=== PATIENT | female | born 1995 | race African-American/Black ===

== ENCOUNTER 2017-06-23 08:18 | Emergency (ER) | payer OTHER, SELFPAY ==
[2017-06-23 09:04] LABS: Absolute Lymphocytes (CBC) 1.7 K/uL (0.7-4.9); Absolute Monocytes 0.5 K/uL (0.1-1.3); Absolute Neutrophil 5.8 K/uL (1.8-8.0); Basophils % 0.4 % (0-1.3); Eosinophils % 1.4 % (0-4.4); Hematocrit 40.2 % (36.0-45.0); Lymphocytes % 20.4 % (15.3-44.8); MCH 24.5 pg (27.0-35.0); MCV 78.5 fL (80-100); MPV 11.3 fL (7.6-11.3); Monocytes % 6.7 % (3.3-12.3); RBC Red Blood Cell Count 5.12 M/uL (3.86-4.86)
[2017-06-23] MEDS ORDERED: NA CHLORIDE 0.9% 1,000 ML ONE (09:05)
[2017-06-23 09:21] LABS: Bicarbonate 28 mEq/L (21-31); Glucose Level 98 mg/dL (65-120); Lipase 15 U/L (22-51); Potassium 4.1 mEq/L (3.6-5.0); Sodium Level 138 mEq/L (135-145)
[2017-06-23 09:27] LABS: ALT/SGPT 15 IU/L (10-60); AST/SGOT 22 IU/L (10-42); Albumin 4.5 g/dL (3.2-5.5); Alkaline Phosphatase 80 IU/L (42-121); BUN Blood Urea Nitrogen 7 mg/dL (6-20); Bilirubin Direct < 0.1 mg/dL (0-0.2); Bilirubin Total 0.3 mg/dL (0.3-1.2); Glomerular Filtration Rate > 90 mL/min (=/>90); Protein, Total 8.4 g/dL (6.0-8.3)
[2017-06-23] MEDS ORDERED: KETOROLAC 30 MG/ML INJ ONE (10:16)
[2017-06-23 10:20] LABS: Urine Blood TRACE (NEG); Urine Glucose NEGATIVE (NEG); Urine Protein NEGATIVE (NEG); Urine Specific Gravity 1.015 (1.005-1.030)
--- NOTE | 2017-06-23 11:19 | RAD REPORT ---
EXAM DESCRIPTION: CT - Stone Protocol - 06/23/2017 10:44 am CLINICAL HISTORY: Abdominal pain, back pain, flank pain COMPARISON: None. TECHNIQUE: Axial 5 mm thick images were obtained without oral or IV contrast. The [id number] span s the entirety of the system including uppermost abdomen and lung bases. All CT scans are performed using dose optimization technique as appropriate and may include automated exposure control or mA/KV adjustment according to patient size. FINDINGS: No hydronephrosis is present and no obstructing ureteral calculi. No suspicious renal mass es. Isodense masses and pyelonephritis are not excluded on a stone protocol CT scan. No urinary bladd er suspicious finding. Uterus and ovaries within normal limits for age. Adnexal detail is limited gonzalo ewhat by the absence of IV and oral contrast. Imaged portions of the liver, spleen and pancreas show no suspicious findings on non-contrast imaging . No gallbladder or biliary tree abnormality identified. Gallstones can be occult. No adrenal abnorma lity. No suspicious bowel findings. No direct or indirect evidence for appendicitis. No mass or bulky lymphadenopathy. Patient has a 3 centimeter umbilical hernia. Small bowel extends in to the hernia which has a 3 centimeter neck. No active process at this site. No free air, free fluid or inflammatory stranding. No significant bony abnormality. IMPRESSION: No hydronephrosis, obstructing calculus or other acute finding. Isodense masses and pyelonephritis are not excluded on stone protocol technique. 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 3 centimeter umbilical hernia with a 3 centimeter neck. No active process at this site.
--- NOTE | 2017-06-23 11:33 | ER ---
Nurse's Notes [facility] Name: Sanjuana Zapata Age: 21 yrs Sex: Female : 1995 Arrival Date: 06/23/2017 Time: 08:21 Bed 7 Private MD: Diagnosis: Lower abdominal pain, unspecified Presentation: 06/23 08:32 Presenting complaint: Patient states: has had generalized abd pain, and mid back pain X iw 5 days, denies n/v/d, denies pain or burning with urination, also has felt light headed. Transition of care: patient was not received from another setting of care. Onset of symptoms was June 18, 2017. Care prior to arrival: None. 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 - Social history:: Smoking status: Patient/guardian denies using tobacco. Screenin:37 Abuse screen: Denies threats or abuse. Denies injuries from another. Nutritional jl7 screening: No deficits noted. Tuberculosis screening: No symptoms or risk factors identified. Fall Risk IV access (20 points). Total Stock Fall Scale indicates No Risk (0-24 pts). Assessment: 08:37 General: Appears in no apparent distress. uncomfortable, Behavior is calm, cooperative, jl7 appropriate for age. Pain: Complains of pain in lower abdomen and sides Pain radiates to bilateral flank pain Pain currently is 7 out of 10 on a pain scale. Quality of pain is described as throbbing, Pain began 5 days ago Is continuous, Aggravated by coughing and taking a deep breath. Neuro: Level of Consciousness is awake, alert, obeys commands, Oriented to person, place, time, situation, Moves all extremities. Gait is steady. Cardiovascular: Heart tones S1 S2 present Patient's skin is warm and dry. Respiratory: Airway is patent Respiratory effort is even, unlabored, Respiratory pattern is regular, symmetrical, Breath sounds are clear bilaterally. GI: Abdomen is flat, non-distended, Last BM was June 23, 2017. Bowel sounds present X 4 quads. Abd is soft and non tender X 4 quads. Reports lower abdominal pain, Patient currently denies diarrhea, nausea, vomiting. : No signs and/or symptoms were reported regarding the genitourinary system. Denies burning with urination, pain. EENT: No signs and/or symptoms were reported regarding the EENT system. Derm: Skin is dry, Skin is normal, Skin temperature is warm. Musculoskeletal: No signs and/or symptoms reported regarding the musculoskeletal system. 09:30 Reassessment: No changes from previously documented assessment. Patient and/or family jl7 updated on plan of care and expected duration. Pain level reassessed. Patient is alert, oriented x 3, equal unlabored respirations, skin warm/dry/pink. 10:20 Reassessment: Patient and/or family updated on plan of care and expected duration. Pain jl7 level reassessed. Pt reports increased pain, rated 10/10. Provider notified, see MAR for orders. 11:07 Reassessment: Pt reports decreased pain, pain rated 1/10. jl7 Vital Signs: 08:37 BP 135 / 89; Pulse 74; Resp 16 S; Pulse Ox 100% on R/A; Weight 71.21 kg; Height 5 ft. 3 jl7 in. (160.02 cm); Pain 7/10; 08:40 Temp 98.5; jl7 09:29 BP 138 / 101; Pulse 74; Resp 18 S; Pulse Ox 100% on R/A; Pain 7/10; jl7 10:30 BP 120 / 75; Pulse 62; Resp 16 S; Pulse Ox 100% on R/A; jl7 11:24 BP 132 / 82; Pulse 78; Resp 16; Pulse Ox 98% ; jl7 08:37 Body Mass Index 27.81 (71.21 kg, 160.02 cm) jl7 ED Course: 08:21 Patient arrived in ED. tw3 08:25 Jessica Osman FNP-C is PHCP. kb 08:25 Domingo Cash MD is Attending Physician. kb 08:33 Triage completed. iw 08:36 Yelena Aguilar, RUDY is Primary Nurse. jl7 08:37 Patient has correct armband on for positive identification. Bed in low position. Call jl7 light in reach. Side rails up X 1. Pulse ox on. NIBP on. 08:42 Arm band placed on right wrist. jl7 09:08 Initial lab(s) drawn, by ED staff, sent to lab. Inserted saline lock: 22 gauge in right jl7 antecubital area, using aseptic technique. Blood collected. inserted by Talat Calloway ED Tech. 10:44 CT Stone Protocol In Process Unspecified. EDMS 11:40 No provider procedures requiring assistance completed. IV discontinued, intact, jl7 bleeding controlled, No redness/swelling at site. Pressure dressing applied. Administered Medications: 09:08 Drug: NS 0.9% 1000 ml Route: IV; Rate: 1 bolus; Site: right antecubital; jl7 10:00 Follow up: Response: No adverse reaction; IV Status: Completed infusion jl7 10:24 Drug: TORadol 30 mg Route: IVP; Site: right antecubital; jl7 11:07 Follow up: Response: No adverse reaction; Pain is decreased jl7 Outcome: 11:32 Discharge ordered by . kb 11:40 Discharged to home ambulatory. jl7 11:40 Condition: stable 11:40 Discharge instructions given to patient, Instructed on discharge instructions, follow up and referral plans. Demonstrated understanding of instructions, follow-up care. 11:41 Patient left the ED. jl7 Signatures: Dispatcher [employer] Jessica Morgan, LIZETTE-Kaylen HINKLEP-Ana Flor, RN Yelena Gregorio RN RN jl7 Ej, Regina tw3
--- NOTE | 2017-06-23 11:33 | EDPHYS ---
Physician Documentation [facility] Name: Sanjuana Zapata Age: 21 yrs Sex: Female : 1995 Arrival Date: 06/23/2017 Time: 08:21 Bed 7 Private MD: ED Physician Domingo Cash HPI: 06/23 10:37 This 21 yrs old Black Female presents to ER via Ambulatory with complaints of Back kb Pain, Abdominal Pain. 10:37 The patient presents with abdominal pain in the lower abdomen. Onset: The kb symptoms/episode began/occurred 2 day(s) ago. The symptoms radiate to both flanks. Associated signs and symptoms: Pertinent positives: nausea, Pertinent negatives: diarrhea, fever, vomiting. The symptoms are described as constant. Modifying factors: The symptoms are alleviated by nothing, the symptoms are aggravated by nothing. Severity of pain: At its worst the pain was mild moderate in the emergency department the pain is unchanged. The patient has not experienced similar symptoms in the past. The patient has not recently seen a physician. 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 - Social history:: Smoking status: Patient/guardian denies using tobacco. ROS: 10:36 Constitutional: Negative for fever, chills, and weight loss, Cardiovascular: Negative kb for chest pain, palpitations, and edema, Respiratory: Negative for shortness of breath, cough, wheezing, and pleuritic chest pain, : Negative for injury, bleeding, discharge, and swelling, MS/Extremity: Negative for injury and deformity, Skin: Negative for injury, rash, and discoloration, Neuro: Negative for headache, weakness, numbness, tingling, and seizure. 10:36 Abdomen/GI: Positive for abdominal pain, nausea, Negative for vomiting, diarrhea, constipation, abdominal cramps, abdominal distension, anorexia. 10:36 Back: Positive for flank pain, bilaterally. Exam: 10:36 Constitutional: This is a well developed, well nourished patient who is awake, alert, kb and in no acute distress. Head/Face: Normocephalic, atraumatic. Chest/axilla: Normal chest wall appearance and motion. Nontender with no deformity. No lesions are appreciated. Cardiovascular: Regular rate and rhythm with a normal S1 and S2. No gallops, murmurs, or rubs. Normal PMI, no JVD. No pulse deficits. Respiratory: Lungs have equal breath sounds bilaterally, clear to auscultation and percussion. No rales, rhonchi or wheezes noted. No increased work of breathing, no retractions or nasal flaring. Abdomen/GI: Soft, non-tender, with normal bowel sounds. No distension or tympany. No guarding or rebound. No evidence of tenderness throughout. Skin: Warm, dry with normal turgor. Normal color with no rashes, no lesions, and no evidence of cellulitis. MS/ Extremity: Pulses equal, no cyanosis. Neurovascular intact. Full, normal range of motion. Neuro: Awake and alert, GCS 15, oriented to person, place, time, and situation. Cranial nerves II-XII grossly intact. Motor strength 5/5 in all extremities. Sensory grossly intact. Cerebellar exam normal. Normal gait. 10:36 Back: CVA tenderness, that is mild, is noted bilaterally. Vital Signs: 08:37 BP 135 / 89; Pulse 74; Resp 16 S; Pulse Ox 100% on R/A; Weight 71.21 kg; Height 5 ft. 3 jl7 in. (160.02 cm); Pain 7/10; 08:40 Temp 98.5; jl7 09:29 BP 138 / 101; Pulse 74; Resp 18 S; Pulse Ox 100% on R/A; Pain 7/10; jl7 10:30 BP 120 / 75; Pulse 62; Resp 16 S; Pulse Ox 100% on R/A; jl7 11:24 BP 132 / 82; Pulse 78; Resp 16; Pulse Ox 98% ; jl7 08:37 Body Mass Index 27.81 (71.21 kg, 160.02 cm) jl7 MDM: 08:27 Patient medically screened. 10:36 Data reviewed: vital signs, nurses notes. Data interpreted: Pulse oximetry: on room air kb is 100 %. Interpretation: normal. 11:32 Counseling: I had a detailed discussion with the patient and/or guardian regarding: the kb historical points, exam findings, and any diagnostic results supporting the discharge/admit diagnosis, lab results, radiology results, the need for outpatient follow up, a family practitioner, to return to the emergency department if symptoms worsen or persist or if there are any questions or concerns that arise at home. 06/23 08:47 Order name: Basic Metabolic Panel; Complete Time: 09:29 kb 06/23 08:47 Order name: CBC with Diff; Complete Time: 09:07 kb 06/23 08:47 Order name: Hepatic Function; Complete Time: 09:29 kb 06/23 08:47 Order name: Lipase; Complete Time: 09:29 kb 06/23 09:59 Order name: Urine Dipstick--Ancillary (enter results); Complete Time: 10:23 ag 06/23 09:59 Order name: Urine --Ancillary (enter results); Complete Time: 10:23 ag 06/23 08:47 Order name: Urine Test (obtain specimen); Complete Time: 10:03 kb 06/23 08:47 Order name: IV Saline Lock; Complete Time: 09:02 kb 06/23 08:47 Order name: Labs collected and sent; Complete Time: 09:02 kb 06/23 08:47 Order name: Urine Dipstick-Ancillary (obtain specimen); Complete Time: 10:03 kb 06/23 10:23 Order name: CT Stone Protocol; Complete Time: 11:23 kb Administered Medications: 09:08 Drug: NS 0.9% 1000 ml Route: IV; Rate: 1 bolus; Site: right antecubital; jl7 10:00 Follow up: Response: No adverse reaction; IV Status: Completed infusion jl7 10:24 Drug: TORadol 30 mg Route: IVP; Site: right antecubital; jl7 11:07 Follow up: Response: No adverse reaction; Pain is decreased jl7 Disposition: 14:04 Co-signature as Attending Physician, Domingo Cash MD I agree with the assessment and kdr plan of care. Disposition: 06/23/17 11:32 Discharged to Home. Impression: Lower abdominal pain, unspecified. - Condition is Stable. - Discharge Instructions: Abdominal Pain, Women. - Medication Reconciliation Form, Thank You Letter, Antibiotic Education, Prescription Opioid Use form. - Follow up: Emergency Department; When: As needed; Reason: Worsening of condition. Follow up: Private Physician; When: 2 - 3 days; Reason: Recheck today's complaints, Continuance of care, Re-evaluation by your physician. Signatures: Dispatcher [employer] Jessica Morgan, INO BAUER-Domingo Buck MD MD kdr Williams, Irene, RN RN iw Leal, Jahala, RN RN jl7
[2017-06-23 12:17] LABS: Urine Bacteria 20-50 /HPF (<20)
[2017-06-23 12:18] LABS: Urine Culture Reflex Order NOT NEEDED; Urine Mucus NS /HPF (NONE SEEN)
== END 2017-06-23 11:41 | disposition home or self-care (01) ==
LOC: ER 08:18
DX: R10.9 Unspecified abdominal pain (principal); F32.9 Major depressive disorder, single episode, unspecified
CPT/HCPCS: 36415; 74176; 76377; 80048; 80076; 81003; 81015; 81025; 83690; 85025; 96361; 96374; 99284; J7030

== ENCOUNTER 2017-12-22 08:24 | Emergency (ER) | payer SELFPAY ==
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
[2017-12-22 09:12] LABS: Absolute Lymphocytes (CBC) 1.5 K/uL (0.7-4.9); Absolute Monocytes 0.5 K/uL (0.1-1.3); Absolute Neutrophil 3.1 K/uL (1.8-8.0); Basophils % 0.6 % (0-1.3); Eosinophils % 2.1 % (0-4.4); Hematocrit 38.7 % (36.0-45.0); Lymphocytes % 28.5 % (15.3-44.8); MCH 26.8 pg (27.0-35.0); MCV 79.8 fL (80-100); MPV 11.7 fL (7.6-11.3); RBC Red Blood Cell Count 4.85 M/uL (3.86-4.86)
[2017-12-22] MEDS ORDERED: THIAMINE 200 MG/2 ML INJ ONE (09:15)
[2017-12-22] MEDS ORDERED: FAMOTIDINE 20 MG/2 ML VIAL IV ONE (09:15)
[2017-12-22] MEDS ORDERED: CEFTRIAXONE/SWI 1gm 1 GM/10 ML SYR ONE (09:15)
[2017-12-22] MEDS ORDERED: NA CHLORIDE 0.9% 1,000 ML ONE (09:15)
[2017-12-22 09:16] LABS: Protime INR 1.2
[2017-12-22 09:35] LABS: ALT/SGPT 21 U/L (12-78); AST/SGOT 18 U/L (15-37); Albumin 4.3 g/dL (3.4-5.0); Alkaline Phosphatase 70 U/L (45-117); BUN Blood Urea Nitrogen 7 mg/dL (7-18); Bicarbonate 22 mmol/L (21-32); Bilirubin Direct 0.1 mg/dL (0-0.2); Bilirubin Total 0.3 mg/dL (0.2-1.0); Glucose Level 92 mg/dL (74-106); Lipase 101 U/L (73-393); Potassium 3.8 mmol/L (3.5-5.1); Sodium Level 144 mmol/L (136-145)
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
[2017-12-22 11:54] LABS: Barbiturates NEGATIVE (NEGATIVE); Benzodiazepines NEGATIVE (NEGATIVE); Cocaine NEGATIVE (NEGATIVE); METHAMPHETAM NEGATIVE (NEGATIVE); Methadone NEGATIVE (NEGATIVE); Opiates NEGATIVE (NEGATIVE); Phencyclidine NEGATIVE (NEGATIVE); THC Cannibis POSITIVE (NEGATIVE)
[2017-12-22 19:21] LABS: Urine Blood 3+ (NEG); Urine Glucose NEGATIVE (NEG); Urine Protein NEGATIVE (NEG); Urine Specific Gravity 1.015 (1.005-1.030)
--- NOTE | 2017-12-24 10:14 | EKG ---
Test Date: 2017-12-22 Test Time: 09:31:24 Repack Room Worker: TOAN MEASUREMENT RESULTS: Intervals: Rate: 85 PA: 142 QRSD: 72 QT: 368 QTc: 437 Berkley: P: 72 PA: 142 QRS: 69 T: 50 INTERPRETIVE STATEMENTS: Normal sinus rhythm Normal ECG Compared to ECG 02/20/2017 10:26:14 Sinus arrhythmia no longer present Electronically Signed On 12-24-17 10:13:46 CDT by Pedro Dupree
== END 2017-12-22 11:30 | disposition short-term general hospital (02) ==
LOC: ER 08:24
DX: S09.93XA Unspecified injury of face, initial encounter (principal); R04.0 Epistaxis; Y04.8XXA Assault by other bodily force, initial encounter; Y93.9 Activity, unspecified; Y92.9 Unspecified place or not applicable; F32.9 Major depressive disorder, single episode, unspecified
CPT/HCPCS: 36415; 70450; 70486; 71260; 72125; 74177; 76377; 80048; 80076; 80307; 80320; 80329; 81003; 83690; 84703; 85025; 85610; 85730; 93005; 96361; 96374; 96375; 99285; J0696; J3411; J7030; Q9967

== ENCOUNTER 2022-07-12 16:21 | Emergency (ER) | payer OTHER ==
--- OUTSIDE RECORDS SUMMARY | 2022-07-12 16:30 | XMS REPORT | Continuity of Care Document ---
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 Starting Branch on Sun02/06/22 at 2352, Until Sun02/07/22 at 1032, Routine famotidine 2021-03 Yes [id number] 20mg Take 1 [facility] 20 mg 0-27 tablet by ity of tablet 00:00: mouth in [address] and 1 tablet in the evening. famotidine 2021-03 Yes [id number] 20mg Take 1 [facility] 20 mg 0-27 tablet by ity of tablet 00:00: mouth in [address] and 1 tablet in the evening. famotidine 2021-03 Yes [id number] 20mg Take 1 [facility] 20 mg 0-27 tablet by ity of tablet 00:00: mouth in [address] and 1 tablet in the evening. famotidine 2021-03 Yes [id number] 20mg Take 1 [facility] 20 mg 0-27 tablet by ity of tablet 00:00: mouth in [address] and 1 tablet in the evening. famotidine 2021-03 Yes [id number] 20mg Take 1 [facility] 20 mg 0-27 tablet by ity of tablet 00:00: mouth in [address] and 1 tablet in the evening. famotidine 2021-03 Yes [id number] 20mg Take 1 [facility] 20 mg 0-27 tablet by ity of tablet 00:00: mouth in [address] and 1 tablet in the evening. famotidine 2021-03 Yes [id number] 20mg Take 1 [facility] 20 mg 0-27 tablet by ity of tablet 00:00: mouth in [address] and 1 tablet in the evening. famotidine 2021-03 Yes [id number] 20mg Take 1 [facility] 20 mg 0-27 tablet by ity of tablet 00:00: mouth in [place] 00 the Medical morning Branch and 1 tablet in the evening. famotidine 2021-03 Yes [id number] 20mg Take 1 [facility] 20 mg 0-27 tablet by ity of tablet 00:00: mouth in [place] 00 the Medical morning Branch and 1 tablet in the evening. famotidine 2021-03 Yes [id number] 20mg Take 1 [facility] 20 mg 0-27 tablet by ity of tablet 00:00: mouth in [place] 00 the Medical morning Branch and 1 tablet in the evening. famotidine 2021-03 Yes [id number] 20mg Take 1 [facility] 20 mg 0-27 tablet by ity of tablet 00:00: mouth in [place] 00 the Medical morning Branch and 1 tablet in the evening. famotidine 2021-03- No [id number] 20mg Take 1 [facility] 20 mg 0-27 11-30 tablet by ity of tablet 00:00: 00:00 mouth in [place] 00 :00 the Medical morning Branch and 1 tablet in the evening. famotidine 2021-03- No [id number] 20mg Take 1 [facility] 20 mg 0-27 11-30 tablet by ity of tablet 00:00: 00:00 mouth in [place] 00 :00 the Medical morning Branch and 1 tablet in the evening. NaCl 0.9% 2021-03- No 1000mL at 999 Uni vers (NS) bolus 0-12 10-12 mL/hr, ity of infusion 23:00: 23:33 1,000 mL, [place] 1,000 mL 00 :00 IV Medical Infusion, Branch ONCE, 1 dose, On Sun12/21/21 at 1800, STAT NaCl 0.9% 2021-03- No 1000mL at 999 Uni vers (NS) bolus 0-12 10-12 mL/hr, ity of infusion 23:00: 22:34 1,000 mL, [place] 1,000 mL 00 :21 IV Medical Infusion, Branch ONCE, 1 dose, On Sun12/21/21 at 1800, STAT metroNIDAZO 2021-0 Yes [id number] 500mg Take 1 [facility] LE 500 mg 9-06 tablet by ity o f tablet 00:00: mouth [place] 00 every 12 Medical (twelve) Branch hours. metroNIDAZO 2021-0 Yes [id number] 500mg Take 1 [facility] LE 500 mg 9-06 tablet by ity o f tablet 00:00: mouth [place] 00 every 12 Medical (twelve) Branch hours. metroNIDAZO 2021-0 Yes [id number] 500mg Take 1 [facility] LE 500 mg 9-06 tablet by ity o f tablet 00:00: mouth [place] 00 every 12 Medical (twelve) Branch hours. metroNIDAZO 2021-0 Yes [id number] 500mg Take 1 [facility] LE 500 mg 9-06 tablet by ity o f tablet 00:00: mouth [place] 00 every 12 Medical (twelve) Branch hours. metroNIDAZO 2021-0 Yes [id number] 500mg Take 1 [facility] LE 500 mg 9-06 tablet by ity o f tablet 00:00: mouth [place] 00 every 12 Medical (twelve) Branch hours. metroNIDAZO 2021-0 Yes [id number] 500mg Take 1 [facility] LE 500 mg 9-06 tablet by ity o f tablet 00:00: mouth [place] 00 every 12 Medical (twelve) Branch hours. metroNIDAZO 2021-0 Yes [id number] 500mg Take 1 [facility] LE 500 mg 9-06 tablet by ity o f tablet 00:00: mouth [place] 00 every 12 Medical (twelve) Branch hours. metroNIDAZO 2021-0 Yes [id number] 500mg Take 1 [facility] LE 500 mg 9-06 tablet by ity o f tablet 00:00: mouth [place] 00 every 12 Medical (twelve) Branch hours. metroNIDAZO 2021-0 Yes [id number] 500mg Take 1 [facility] LE 500 mg 9-06 tablet by ity o f tablet 00:00: mouth [place] 00 every 12 Medical (twelve) Branch hours. metroNIDAZO 2021-0 2021- No [id number] 500mg Take 1 [facility] LE 500 mg 9-06 10-12 tablet by ity of tablet 00:00: 00:00 mouth [place] 00 :00 every 12 Medical (twelve) Branch hours. fluconazole 2021-0 2021- No [id number] 150mg Take 1 [facility] 150 mg 9-06 09-07 tablet by ity of tablet 00:00: 04:59 [place] 00 :[place] now for 1 Medical dose. Branch busPIRone 5 2021-0 Yes [id number] 5mg Take 1 [facility] mg tablet 8-31 tablet by ity o f 00:00: mouth in [place] 00 the Medical morning Branch and 1 tablet in the evening. SERTraline 2021-0 Yes [id number] 50mg Take 1 U nivers (ZOLOFT) 50 8-31 tablet by ity of mg tablet 00:00: mouth in [place] 00 the Medical morning. Branch busPIRone 5 2021-0 Yes [id number] 5mg Take 1 [facility] mg tablet 8-31 tablet by ity o f 00:00: mouth in [place] 00 the Medical morning Branch and 1 tablet in the evening. SERTraline 2021-0 Yes [id number] 50mg Take 1 U nivers (ZOLOFT) 50 8-31 tablet by [facility] mg tablet 00:00[facility] Branch busPIRone 5 2021-0 Yes [id number] 5mg Take 1 [facility] mg tablet 8-31 tablet by ity o f 00:00: mouth in [place] 00 the Medical morning Branch and 1 tablet in the evening. SERTraline 2021-0 Yes [id number] 50mg Take 1 U nivers (ZOLOFT) 50 8-31 tablet by ity [facility] mg tablet 00:00[facility] the [facility] morning. Branch busPIRone 5 2021-0 Yes [id number] 5mg Take 1 [facility] mg tablet 8-31 tablet by ity o f 00:00: mouth in [place] the Medical morning Branch and 1 tablet in the evening. SERTraline 2021-0 Yes [id number] 50mg Take 1 U nivers (ZOLOFT) 50 8-31 tablet by [facility]y [facility] mg tablet 00:00[facility] the [facility] morning. Branch busPIRone 5 2021-0 Yes [id number] 5mg Take 1 [facility] mg tablet 8-31 tablet by ity o f 00:00: mouth in [place] 00 the Medical morning Branch and 1 tablet in the evening. SERTraline 2021-0 Yes [id number] 50mg Take 1 U nivers (ZOLOFT) 50 8-31 tablet by [facility] mg tablet 00:00[facility]. Branch busPIRone 5 2021-0 Yes [id number] 5mg Take 1 [facility] mg tablet 8-31 tablet by ity o f 00:00: mouth in [place] 00 the Medical morning Branch and 1 tablet in the evening. SERTraline 2021-0 Yes [id number] 50mg Take 1 U nivers (ZOLOFT) 50 8-31 tablet by ity of mg tablet 00:00: [place] the Medical morning. Branch busPIRone 5 2021-0 Yes [id number] 5mg Take 1 [facility] mg tablet 8-31 tablet by ity o f 00:00: mouth in [place] 00 the Medical morning Branch and 1 tablet in the evening. SERTraline 2021-0 Yes [id number] 50mg Take 1 U nivers (ZOLOFT) 50 8-31 tablet by ity of mg tablet 00:00: mouth [place] 00 the Medical morning. Branch busPIRone 5 2021-0 Yes [id number] 5mg Take 1 [facility] mg tablet 8-31 tablet by ity o f 00:00: mouth in [place] the Medical morning Branch and 1 tablet in the evening. SERTraline 2021-0 Yes [id number] 50mg Take 1 U nivers (ZOLOFT) 50 8-31 tablet by ity of mg tablet 00:00: mouth [place] the Medical morning. Branch busPIRone 5 2021-0 Yes [id number] 5mg Take 1 [facility] mg tablet 8-31 tablet by ity o f 00:00: mouth in [place] the Medical morning Branch and 1 tablet in the evening. SERTraline 2021-0 Yes [id number] 50mg Take 1 U nivers (ZOLOFT) 50 8-31 tablet by ity of mg tablet 00:00: mouth [place] 00 the Medical morning. Branch busPIRone 5 2021-0 Yes [id number] 5mg Take 1 [facility] mg tablet 8-31 tablet by ity o f 00:00: mouth in [place] 00 the Medical morning Branch and 1 tablet in the evening. SERTraline 2021-0 Yes [id number] 50mg Take 1 U nivers (ZOLOFT) 50 8-31 tablet by ity of mg tablet 00:00: mouth [place] 00 the Medical morning. Branch busPIRone 5 2021-0 Yes [id number] 5mg Take 1 [facility] mg tablet 8-31 tablet by ity o f 00:00: mouth in [place] 00 the Medical morning Branch and 1 tablet in the evening. SERTraline 2021-0 Yes [id number] 50mg Take 1 U nivers (ZOLOFT) 50 8-31 tablet by ity of mg tablet 00:00: mouth [place] 00 the Medical morning. Branch busPIRone 5 2021-0 Yes [id number] 5mg Take 1 [facility] mg tablet 8-31 tablet by ity o f 00:00: mouth in [place] the morning Branch and 1 tablet in the evening. SERTraline 2021-0 Yes [id number] 50mg Take 1 U nivers (ZOLOFT) 50 8-31 tablet by ity of mg tablet 00:00: mouth [place] 00 the Medical morning. Branch busPIRone 5 2021-0 Yes [id number] 5mg Take 1 [facility] mg tablet 8-31 tablet by ity o f 00:00: mouth in [place] the morning Branch and 1 tablet in the evening. SERTraline 2021-0 Yes [id number] 50mg Take 1 U nivers (ZOLOFT) 50 8-31 tablet by ity of mg tablet 00:00: mouth [place] the morning. Branch busPIRone 5 2021-0 Yes [id number] 5mg Take 1 [facility] mg tablet 8-31 tablet by ity o f 00:00: mouth in [place] the morning Branch and 1 tablet in the evening. SERTraline 2021-0 Yes [id number] 50mg Take 1 U nivers (ZOLOFT) 50 8-31 tablet by ity of mg tablet 00:00: mouth [place] the morning. Branch busPIRone 5 2021-0 Yes [id number] 5mg Take 1 [facility] mg tablet 8-31 tablet by ity o f 00:00: mouth in [place] the morning Branch and 1 tablet in the evening. SERTraline 2021-0 Yes [id number] 50mg Take 1 U nivers (ZOLOFT) 50 8-31 tablet by ity of mg tablet 00:00: mouth [place] 00 the Medical morning. Branch busPIRone 5 2021-0 Yes [id number] 5mg Take 1 [facility] mg tablet 8-31 tablet by ity o f 00:00: mouth in [place] the Medical morning Branch and 1 tablet in the evening. SERTraline 2021-0 Yes [id number] 50mg Take 1 U nivers (ZOLOFT) 50 8-31 tablet by ity of mg tablet 00:00: mouth [place] 00 the Medical morning. Branch busPIRone 5 2021-0 Yes [id number] 5mg Take 1 [facility] mg tablet 8-31 tablet by ity o f 00:00: mouth in [place] 00 the Medical morning Branch and 1 tablet in the evening. SERTraline 2021-0 Yes [id number] 50mg Take 1 U nivers (ZOLOFT) 50 8-31 tablet by ity of mg tablet 00:00: mouth [place] 00 the Medical morning. Branch busPIRone 5 2021-0 Yes [id number] 5mg Take 1 [facility] mg tablet 8-31 tablet by ity o f 00:00: mouth in [place] 00 the Medical morning Branch and 1 tablet in the evening. SERTraline 2021-0 Yes [id number] 50mg Take 1 U nivers (ZOLOFT) 50 8-31 tablet by ity of mg tablet 00:00: mouth [place] 00 the Medical morning. Branch busPIRone 5 2021-0 Yes [id number] 5mg Take 1 [facility] mg tablet 8-31 tablet by ity o f 00:00: mouth in [place] 00 the Medical morning Branch and 1 tablet in the evening. SERTraline 2021-0 Yes [id number] 50mg Take 1 U nivers (ZOLOFT) 50 8-31 tablet by ity of mg tablet 00:00: mouth [place] 00 the Medical morning. Branch busPIRone 5 2021-0 Yes [id number] 5mg Take 1 [facility] mg tablet 8-31 tablet by ity o f 00:00: mouth in [place] 00 the Medical morning Branch and 1 tablet in the evening. SERTraline 2021-0 Yes [id number] 50mg Take 1 U nivers (ZOLOFT) 50 8-31 tablet by ity of mg tablet 00:00: mouth [place] 00 the Medical morning. Branch busPIRone 5 2021-0 Yes [id number] 5mg Take 1 [facility] mg tablet 8-31 tablet by ity o f 00:00: mouth in [place] 00 the Medical morning Branch and 1 tablet in the evening. SERTraline 2021-0 Yes [id number] 50mg Take 1 U nivers (ZOLOFT) 50 8-31 tablet by ity of mg tablet 00:00: mouth [place] 00 the Medical morning. Branch busPIRone 5 2021-0 Yes [id number] 5mg Take 1 [facility] mg tablet 8-31 tablet by ity o f 00:00: mouth in [place] 00 the Medical morning Branch and 1 tablet in the evening. SERTraline 2021-0 Yes [id number] 50mg Take 1 U nivers (ZOLOFT) 50 8-31 tablet by ity of mg tablet 00:00: mouth [place] 00 the Medical morning. Branch busPIRone 5 2021-0 Yes [id number] 5mg Take 1 [facility] mg tablet 8-31 tablet by ity o f 00:00: mouth in [place] the Medical morning Branch and 1 tablet in the evening. SERTraline 2021-0 Yes [id number] 50mg Take 1 U nivers (ZOLOFT) 50 8-31 tablet by ity of mg tablet 00:00: mouth [place] 00 the Medical morning. Branch busPIRone 5 2021-0 Yes [id number] 5mg Take 1 [facility] mg tablet 8-31 tablet by ity o f 00:00: mouth in [place] the Medical morning Branch and 1 tablet in the evening. SERTraline 2021-0 Yes [id number] 50mg Take 1 U nivers (ZOLOFT) 50 8-31 tablet by ity of mg tablet 00:00: mouth [place] 00 the Medical morning. Branch busPIRone 5 2021-0 Yes [id number] 5mg Take 1 [facility] mg tablet 8-31 tablet by ity o f 00:00: mouth in [place] the Medical morning Branch and 1 tablet in the evening. SERTraline 2021-0 Yes [id number] 50mg Take 1 U nivers (ZOLOFT) 50 8-31 tablet by ity of mg tablet 00:00: mouth [place] 00 the Medical morning. Branch busPIRone 5 2021-0 Yes [id number] 5mg Take 1 [facility] mg tablet 8-31 tablet by ity o f 00:00: mouth in [place] 00 the Medical morning Branch and 1 tablet in the evening. SERTraline 2021-0 Yes [id number] 50mg Take 1 U nivers (ZOLOFT) 50 8-31 tablet by ity of mg tablet 00:00: mouth in [facility] 00 the Medical morning. Branch SERTraline 2021- No [id number] 50mg Take 1 [facility] (ZOLOFT) 50 8- 11-30 tablet by it y of mg tablet 00:00: 00:00 mouth in [place] 00 :00 the Medical morning. Branch busPIRone 5 2021- No [id number] 5mg Take 1 [facility] mg tablet 8- 11-30 tablet by ity of 00:00: 00:00 mouth in [place] 00 :00 the Medical morning Branch and 1 tablet in the evening. SERTraline 2021- No [id number] 50mg Take 1 [facility] (ZOLOFT) 50 8- 11-30 tablet by it y of mg tablet 00:00: 00:00 mouth in [place] 00 :00 the Medical morning. Branch busPIRone 5 2021- No [id number] 5mg Take 1 [facility] mg tablet 8--30 tablet by ity of 00:00: 00:00 mouth in [place] 00 :00 the Medical morning Branch and 1 tablet in the evening. Yes 1{each} Take 1 Univ ers vitamin 5-15 Each by ity of w/FA 60 mg 00:00: mouth. [place] iron-1 mg 00 Medical tablet Branch Yes 1{each} Take 1 Univ ers vitamin 5-15 Each by ity of w/FA 60 mg 00:00: mouth. [place] iron-1 mg 00 Medical tablet Branch Yes 1{each} Take 1 [facility] ers vitamin 5-15 Each by ity of w/FA 60 mg 00:00: mouth. [place] iron-1 mg 00 Medical tablet Branch Yes 1{each} Take 1 [facility] ers vitamin 5-15 Each by ity of w/FA 60 mg 00:00: mouth. [place] iron-1 mg 00 Medical tablet Branch Yes 1{each} Take 1 [facility] ers vitamin 5-15 Each by ity of w/FA 60 mg 00:00: mouth. [place] iron-1 mg 00 Medical tablet Branch Yes 1{each} Take 1 [facility] ers vitamin 5-15 Each by ity of w/FA 60 mg 00:00: mouth. [place] iron-1 mg 00 Medical tablet Branch Yes 1{each} Take 1 Univ ers vitamin 5-15 Each by ity of w/FA 60 mg 00:00: mouth. [place] iron-1 mg 00 Medical tablet Branch Yes 1{each} Take 1 [facility] ers vitamin 5-15 Each by ity of w/FA 60 mg 00:00: mouth. [place] iron-1 mg 00 Medical tablet Branch Yes 1{each} Take 1 [facility] ers vitamin 5-15 Each by ity of w/FA 60 mg 00:00: mouth. [place] iron-1 mg 00 Medical tablet Branch Yes 1{each} Take 1 [facility] ers vitamin 5-15 Each by ity of w/FA 60 mg 00:00: mouth. [place] iron-1 mg 00 Medical tablet Branch Yes 1{each} Take 1 Univ ers vitamin 5-15 Each by ity of w/FA 60 mg 00:00: mouth. [place] iron-1 mg 00 Medical tablet Branch Yes 1{each} Take 1 Univ ers vitamin 5-15 Each by ity of w/FA 60 mg 00:00: mouth. [place] iron-1 mg 00 Medical tablet Branch Yes 1{each} Take 1 Univ ers vitamin 5-15 Each by ity of w/FA 60 mg 00:00: mouth. [place] iron-1 mg 00 Medical tablet Branch Yes 1{each} Take 1 Univ ers vitamin 5-15 Each by ity of w/FA 60 mg 00:00: mouth. [place] iron-1 mg 00 Medical tablet Branch Yes 1{each} Take 1 Univ ers vitamin 5-15 Each by ity of w/FA 60 mg 00:00: mouth. [place] iron-1 mg 00 Medical tablet Branch Yes 1{each} Take 1 Univ ers vitamin 5-15 Each by ity of w/FA 60 mg 00:00: mouth. [place] iron-1 mg 00 Medical tablet Branch Yes 1{each} Take 1 Univ ers vitamin 5-15 Each by ity of w/FA 60 mg 00:00: mouth. [place] iron-1 mg 00 Medical tablet Branch Yes 1{each} Take 1 Univ ers vitamin 5-15 Each by ity of w/FA 60 mg 00:00: mouth. [place] iron-1 mg 00 Medical tablet Branch Yes 1{each} Take 1 Univ ers vitamin 5-15 Each by ity of w/FA 60 mg 00:00: mouth. [place] iron-1 mg 00 Medical tablet Branch Yes 1{each} Take 1 Univ ers vitamin 5-15 Each by ity of w/FA 60 mg 00:00: mouth. [place] iron-1 mg 00 Medical tablet Branch Yes 1{each} Take 1 Univ ers vitamin 5-15 Each by ity of w/FA 60 mg 00:00: mouth. [place] iron-1 mg 00 Medical tablet Branch Yes 1{each} Take 1 Univ ers vitamin 5-15 Each by ity of w/FA 60 mg 00:00: mouth. [place] iron-1 mg 00 Medical tablet Branch Yes 1{each} Take 1 Univ ers vitamin 5-15 Each by ity of w/FA 60 mg 00:00: mouth. [place] iron-1 mg 00 Medical tablet Branch Yes 1{each} Take 1 Univ ers vitamin 5-15 Each by ity of w/FA 60 mg 00:00: mouth. [place] iron-1 mg 00 Medical tablet Branch Yes 1{each} Take 1 Univ ers vitamin 5-15 Each by ity of w/FA 60 mg 00:00: mouth. [place] iron-1 mg 00 Medical tablet Branch Yes 1{each} Take 1 Univ ers vitamin 5-15 Each by ity of w/FA 60 mg 00:00: mouth. [place] iron-1 mg 00 Medical tablet Branch 2021- No 1{each} Take 1 Uni vers vitamin 5-15 11-30 Each by ity of w/FA 60 mg 00:00: 00:00 mouth. [place] iron-1 mg 00 :00 Medical tablet Branch 2021- No 1{each} Take 1 [facility] vers vitamin 5-15 11-30 Each by ity of w/FA 60 mg 00:00: 00:00 mouth[place] iron-1 mg 00 :00 Medical tablet Branch Flagyl 500 No 1mg mg tablet 8-30 00:00: 00 Dose No Unknown 6-10 00:00: 00 Augmentin No 1mg 875 mg-125 8-31 mg tablet 00:00: 00 naproxen No 1mg 500 mg 4-17 tablet 00:00: 00 Vitamin D2 No 1unit 50,000 unit 4-17 capsule 00:00: 00 Vitamin D2 No 1unit 50,000 unit 1-03 capsule 00:00: 00 Vitamin D2 No 1unit 50,000 unit 1-03 capsule 00:00: 00 Saline 2017-03 No Notes: Memoria Flush 0.9% 0-14 (Same as: l 01:24: BD [place] 00 Posiflush) Azithromyci 2017-03 No Notes: Marvel jenniffer n 0-14 Take 1 l 01:24: hour [place] 00 before or 2 hours after meals. (Same As: Zithromax) Ceftriaxone 2017-03 No Notes: [place] jenniffer 0-14 (Same As: l 01:24: Rocephin) [place] 00 Metronidazo 2017-03 No Notes: [place] jenniffer le 0-14 (Same as: l 01:24: Flagyl) [place] 00 Take with food/ avoid alcohol Saline 2017-03 No Notes: Memoria Flush 0.9% 0-14 (Same as: l 01:24: BD [place] 00 Posiflush) Azithromyci 2017-03 No Notes: Marvel jenniffer n 0-14 Take 1 l 01:24: hour [place] 00 before or 2 hours after meals. (Same As: Zithromax) Ceftriaxone 2017-03 No Notes: Marvel jenniffer 0-14 (Same As: l 01:24: Rocephin) [place] 00 Metronidazo 2017-03 No Notes: [place] jenniffer le 0-14 (Same as: l 01:24: Flagyl) [place] 00 Take with food/ avoid alcohol Saline 2017-03 No Notes: Memoria Flush 0.9% 0-14 (Same as: l 01:24: BD [place] 00 Posiflush) Azithromyci 2017-03 No Notes: [place] jenniffer n 0-14 Take 1 l 01:24: hour [place] 00 before or 2 hours after meals. (Same As: Zithromax) Ceftriaxone 2017-03 No Notes: [place] jenniffer 0-14 (Same As: l 01:24: Rocephin) [place] 00 Metronidazo 2017-03 No Notes: [place] jenniffer le 0-14 (Same as: l 01:24: Flagyl) [place] 00 Take with food/ avoid alcohol Saline 2017-03 No Notes: Memoria Flush 0.9% 0-14 (Same as: l 01:24: BD [place] 00 Posiflush) Azithromyci 2017-03 No Notes: [place] jenniffer n 0-14 Take 1 l 01:24: hour [place] 00 before or 2 hours after meals. (Same As: Zithromax) Ceftriaxone 2017-03 No Notes: [place] jenniffer 0-14 (Same As: l 01:24: Rocephin) [place] 00 Metronidazo 2017-03 No Notes: [place] jenniffer le 0-14 (Same as: l 01:24: Flagyl) [place] 00 Take with food/ avoid alcohol Saline 2017-03 No Notes: Memoria Flush 0.9% 0-14 (Same as: l 01:24: BD [place] 00 Posiflush) Azithromyci 2017-03 No Notes: [place] jenniffer n 0-14 Take 1 l 01:24: hour [place] 00 before or 2 hours after meals. (Same As: Zithromax) Ceftriaxone 2017-03 No Notes: [place] jenniffer 0-14 (Same As: l 01:24: Rocephin) [place] 00 Metronidazo 2017-03 No Notes: [place] jenniffer le 0-14 (Same as: l 01:24: Flagyl) [place] 00 Take with food/ avoid alcohol Saline 2017-03 No Notes: Memoria Flush 0.9% 0-14 (Same as: l 01:24: BD [place] 00 Posiflush) Azithromyci 2017-03 No Notes: [place] jenniffer n 0-14 Take 1 l 01:24: hour [place] 00 before or 2 hours after meals. (Same As: Zithromax) Ceftriaxone 2017-03 No Notes: Marvel jenniffer 0-14 (Same As: l 01:24: Rocephin) [place] 00 Metronidazo 2017-03 No Notes: [place] jenniffer le 0-14 (Same as: l 01:24: Flagyl) [place] 00 Take with food/ avoid alcohol Saline 2017-03 No Notes: Memoria Flush 0.9% 0-14 (Same as: l 01:24: BD [place] 00 Posiflush) Azithromyci 2017-03 No Notes: [place] jenniffer n 0-14 Take 1 l 01:24: hour [place] 00 before or 2 hours after meals. (Same As: Zithromax) Ceftriaxone 2017-03 No Notes: [place] jenniffer 0-14 (Same As: l 01:24: Rocephin) [place] 00 Metronidazo 2017-03 No Notes: [place] jenniffer le 0-14 (Same as: l 01:24: Flagyl) [place] 00 Take with food/ avoid alcohol Saline 2017-03 No Notes: Memoria Flush 0.9% 0-14 (Same as: l 01:24: BD [place] 00 Posiflush) Azithromyci 2017-03 No Notes: [place] jenniffer n 0-14 Take 1 l 01:24: hour [place] 00 before or 2 hours after meals. (Same As: Zithromax) Ceftriaxone 2017-03 No Notes: Marvel jenniffer 0-14 (Same As: l 01:24: Rocephin) [place] 00 Metronidazo 2017-03 No Notes: [place] jenniffer le 0-14 (Same as: l 01:24: Flagyl) [place] 00 Take with food/ avoid alcohol Saline 2017-03 No Notes: Memoria Flush 0.9% 0-14 (Same as: l 01:24: BD [place] 00 Posiflush) Azithromyci 2017-03 No Notes: [place] jenniffer n 0-14 Take 1 l 01:24: hour [place] 00 before or 2 hours after meals. (Same As: Zithromax) Ceftriaxone 2017-03 No Notes: Marvel jenniffer 0-14 (Same As: l 01:24: Rocephin) [place] 00 Metronidazo 2017-03 No Notes: Marvel jenniffer le 0-14 (Same as: l 01:24: Flagyl) [place] 00 Take with food/ avoid alcohol Saline 2017-03 No Notes: Memoria Flush 0.9% 0-14 (Same as: l 01:24: BD [place] 00 Posiflush) Azithromyci 2017-03 No Notes: [place] jenniffer n 0-14 Take 1 l 01:24: hour [place] 00 before or 2 hours after meals. (Same As: Zithromax) Ceftriaxone 2017-03 No Notes: [place] jenniffer 0-14 (Same As: l 01:24: Rocephin) [place] 00 Metronidazo 2017-03 No Notes: [place] jenniffer le 0-14 (Same as: l 01:24: Flagyl) [place] 00 Take with food/ avoid alcohol Saline 2017-03 No Notes: Memoria Flush 0.9% 0-14 (Same as: l 01:24: BD [place] 00 Posiflush) Azithromyci 2017-03 No Notes: [place] jenniffer n 0-14 Take 1 l 01:24: hour [place] 00 before or 2 hours after meals. (Same As: Zithromax) Ceftriaxone 2017-03 No Notes: Marvel jenniffer 0-14 (Same As: l 01:24: Rocephin) [place] 00 Metronidazo 2017-03 No Notes: [place] jenniffer le 0-14 (Same as: l 01:24: Flagyl) [place] 00 Take with food/ avoid alcohol Saline 2017-03 No Notes: Memoria Flush 0.9% 0-14 (Same as: l 01:24: BD [place] 00 Posiflush) Azithromyci 2017-03 No Notes: [place] jenniffer n 0-14 Take 1 l 01:24: hour [place] 00 before or 2 hours after meals. (Same As: Zithromax) Ceftriaxone 2017-03 No Notes: [place] jenniffer 0-14 (Same As: l 01:24: Rocephin) [place] 00 Metronidazo 2017-03 No Notes: [place] jenniffer le 0-14 (Same as: l 01:24: Flagyl) [place] 00 Take with food/ avoid alcohol Immunizations Ordered Filled Immunization Date Status Comments [facility] e Immunization Name Name TDAP 2021-12-21 Completed [facility] 00:[facility]00 [facility] TDAP 2021-12-21 Completed [facility] 00:00:00 [facility] TDAP 2021-12-21 Completed [facility] 00:00:00 [facility] TDAP 2021-12-21 Completed [facility] 00:00:00 [facility] TDAP 2021-12-21 Completed [facility] 00:00:00 [facility] TDAP 2021-12-21 Completed [facility] 00:00:00 [place] [facility] TDAP 2021-12-21 Completed [facility] 00:00:00 [place] [facility] TDAP 2021-12-21 Completed [facility] 00:00:00 [place] [facility] TDAP 2021-12-21 Completed [facility] 00:00:00 [facility] TDAP 2021-12-21 Completed [facility] 00:00:00 [facility] TDAP 2021-12-21 Completed [facility] 00:00:00 [facility] TDAP 2021-12-21 Completed [facility] 00:00:00 [facility] TDAP 2021-12-21 Completed [facility] 00:00:00 [facility] TDAP 2021-12-21 Completed [facility] 00:00:00 [facility] TDAP 2021-12-21 Completed [facility] 00:00:00 [facility] TDAP 2021-12-21 Completed [facility] 00:00:00 [facility] TDAP 2021-12-21 Completed [facility] 00:00:00 [facility] TDAP 2021-12-21 Completed [facility] of 00:00:00 [facility] TDAP 2021-12-21 Completed [facility] 00:00:00 [facility] TDAP 2021-12-21 Completed [facility] 00:00:00 [facility] TDAP 2021-12-21 Completed [facility] 00:00:00 [facility] TDAP 2021-12-21 Completed [facility] 00:00:00 [facility] TDAP 2021-12-21 Completed [facility] 00:00:00 [facility] TDAP 2021-12-21 Completed [facility] 00:00:00 [facility] Vital Signs Vital Name Observation Time Observation Value Comments Source Systolic blood 2022-03-22 21:55:00 124 mm[Hg] Univer sity of pressure [facility] Diastolic blood 2022-03-22 21:55:00 63 mm[Hg] Unive rsity of pressure [facility] Heart rate 2022-03-22 21:55:00 75 /min [facility] Body temperature 2022-03-22 21:55:00 36.72 Asiya Univ ersity [facility] Body height 2022-03-22 21:55:00 160 cm [facility] Body weight 2022-03-22 21:55:00 79.017 kg [facility] BMI 2022-03-22 21:55:00 30.86 kg/m2 Universi ty of [facility] Systolic blood 2022-02-14 20:35:00 131 mm[Hg] Univer sity of pressure [facility] Diastolic blood 2022-02-14 20:35:00 86 mm[Hg] Unive rsity of pressure [facility] Heart rate 2022-02-14 20:35:00 72 /min Universi ty of [facility] Body temperature 2022-02-14 20:35:00 36.83 Asiya Univ ersity of [facility] Body height 2022-02-14 20:35:00 160 cm Universi ty of [facility] Body weight 2022-02-14 20:35:00 77.837 kg Universi ty of [facility] BMI 2022-02-14 20:35:00 30.40 kg/m2 Universi ty of [facility] Systolic blood 2022-02-08 13:10:00 112 mm[Hg] Univer sity of [facility] Diastolic blood 2022-02-08 13:10:00 57 mm[Hg] Unive rsity of pressure [facility] Heart rate 2022-02-08 13:10:00 69 /min Universi ty of [facility] Body temperature 2022-02-08 13:10:00 36.83 Asiya Univ ersity of [facility] Respiratory rate 2022-02-08 13:10:00 16 /min [facility] ersity of [facility] Oxygen saturation in 2022-02-08 13:10:00 96 /min [facility] Arterial blood by [facility]xim[facility] Branch Body height 2022-02-07 05:44:00 160 cm [facility] Body weight 2022-02-07 05:44:00 86.183 kg Universi ty of [facility] BMI 2022-02-07 05:44:00 33.66 kg/m2 Universi ty of [facility] Systolic blood 2022-02-07 15:45:00 126 mm[Hg] Univer sity of pressure [facility] Diastolic blood 2022-02-07 15:45:00 70 mm[Hg] Unive rsity of pressure [facility] Heart rate 2022-02-07 15:45:00 69 /min Universi ty of [facility] Respiratory rate 2022-02-07 15:45:00 16 /min Univ ersity of [facility] Oxygen saturation in 2022-02-07 15:45:00 99 /min University Arterial blood by [facility] Body temperature 2022-02-07 15:40:00 36.56 Asiya Univ ersity of [facility] Body height 2022-02-07 05:44:00 160 cm Universi ty of [facility] Body weight 2022-02-07 05:44:00 86.183 kg Universi ty of [facility] BMI 2022-02-07 05:44:00 33.66 kg/m2 Universi ty of [facility] Systolic blood 2022-02-06 22:07:00 123 mm[Hg] Univer sity of pressure [facility] Diastolic blood 2022-02-06 22:07:00 77 mm[Hg] Unive rsity of pressure [facility] Heart rate 2022-02-06 22:07:00 67 /min [facility] Body temperature 2022-02-06 22:07:00 36.78 Asiya Univ ersity of [facility] Respiratory rate 2022-02-06 22:07:00 18 /min Univ ersity of [facility] Body height 2022-02-06 22:07:00 160 cm Universi ty of [facility] Body weight 2022-02-06 22:07:00 84.823 kg Universi ty of [facility] BMI 2022-02-06 22:07:00 33.13 kg/m2 [facility] of [facility] Systolic blood 2022-01-30 22:16:00 117 mm[Hg] Univer sity of pressure [facility] Diastolic blood 2022-01-30 22:16:00 72 mm[Hg] Unive rsity of pressure [facility] Heart rate 2022-01-30 22:16:00 84 /min Universi ty of [facility] Body temperature 2022-01-30 22:16:00 36.78 Asiya Univ ersity of [facility] Body height 2022-01-30 22:16:00 160 cm Universi ty of [facility] Body weight 2022-01-30 22:16:00 84.46 kg Universi ty of [facility] BMI 2022-01-30 22:16:00 32.98 kg/m2 [facility] of [facility] Systolic blood 2022-01-12 21:26:00 117 mm[Hg] Univer sity of [facility] Diastolic blood 2022-01-12 21:26:00 74 mm[Hg] Unive rsity of [facility] Heart rate 2022-01-12 21:26:00 101 /min Universi ty of [facility] Body temperature 2022-01-12 21:26:00 36.72 Asiya Univ ersity of [facility] Respiratory rate 2022-01-12 21:26:00 18 /min Univ ersity of [facility] Body height 2022-01-12 21:26:00 160 cm [facility]i [facility] Body weight 2022-01-12 21:26:00 81.92 kg Universi ty of [facility] BMI 2022-01-12 21:26:00 31.99 kg/m2 [facility]i [facility] of [facility] Systolic blood 2022-01-05 21:15:00 108 mm[Hg] Univer sity of pressure [facility] Diastolic blood 2022-01-05 21:15:00 67 mm[Hg] Unive rsity of pressure [facility] Heart rate 2022-01-05 21:15:00 85 /min Universi ty of [facility] Body temperature 2022-01-05 21:15:00 36.17 Asiya Univ ersity of [facility] Respiratory rate 2022-01-05 21:15:00 18 /min Univ ersity of [facility] Body height 2022-01-05 21:15:00 160 cm Universi ty of [facility] Body weight 2022-01-05 21:15:00 80.287 kg [facility]i [facility] of [facility] BMI 2022-01-05 21:15:00 31.35 kg/m2 [facility] Systolic blood 2021-12-29 21:24:00 110 mm[Hg] Univer sity of pressure [facility] Diastolic blood 2021-12-29 21:24:00 69 mm[Hg] Unive rsity of pressure [facility] Heart rate 2021-12-29 21:24:00 73 /min Universi ty of [facility] Body temperature 2021-12-29 21:24:00 36.72 Asiya Univ ersity of [facility] Respiratory rate 2021-12-29 21:24:00 18 /min Univ ersity of [facility] Body height 2021-12-29 21:24:00 160 cm [facility]i [facility] of [facility] Body weight 2021-12-29 21:24:00 81.103 kg Universi [facility] of [facility] BMI 2021-12-29 21:24:00 31.67 kg/m2 [facility]i ty of [facility] Heart rate 2021-12-22 01:15:00 85 /min Universi ty of [facility] Oxygen saturation in 2021-12-22 01:15:00 100 /min University Arterial blood by [facility] Pulse oxim[facility] Systolic blood 2021-12-22 00:00:00 109 mm[Hg] Univer sity of pressure [facility] Diastolic blood 2021-12-22 00:00:00 95 mm[Hg] Unive rsity of pressure [facility] Body temperature 2021-12-22 00:00:00 37 Asiya Univ ersity of [facility] Respiratory rate 2021-12-22 00:00:00 18 /min Univ ersity of [facility] Systolic blood 2021-12-21 21:04:00 114 mm[Hg] Univer sity of pressure [facility] Diastolic blood 2021-12-21 21:04:00 73 mm[Hg] Unive rsity of pressure [facility] Heart rate 2021-12-21 21:04:00 83 /min Universi ty of [facility] Body temperature 2021-12-21 21:04:00 36.72 Asiya Univ ersity of [facility] Respiratory rate 2021-12-21 21:04:00 18 /min Univ ersity of [facility] Body height 2021-12-21 21:04:00 160 cm [facility]i [facility] of [facility] Body weight 2021-12-21 21:04:00 80.74 kg Universi ty of [facility] BMI 2021-12-21 21:04:00 31.53 kg/m2 [facility] ty of [facility] Systolic blood 2021-12-14 21:08:00 115 mm[Hg] Univer sity of pressure [facility] Diastolic blood 2021-12-14 21:08:00 71 mm[Hg] Unive rsity of pressure [facility] Heart rate 2021-12-14 21:08:00 87 /min [facility]i [facility] Body temperature 2021-12-14 21:08:00 36.78 Asiya Univ ersity of [facility] Respiratory rate 2021-12-14 21:08:00 18 /min Univ ersity of [facility] Body height 2021-12-14 21:08:00 160 cm [facility]i [facility] Body weight 2021-12-14 21:08:00 78.472 kg [facility]i [facility] BMI 2021-12-14 21:08:00 30.65 kg/m2 Universi ty of [facility] Systolic blood 2021-12-07 19:20:00 114 mm[Hg] Univer sity of pressure [facility] Diastolic blood 2021-12-07 19:20:00 71 mm[Hg] Unive rsity of pressure [facility] Heart rate 2021-12-07 19:20:00 99 /min Universi ty [facility] Body temperature 2021-12-07 19:20:00 36.78 Asiya Univ ersity of [facility] Respiratory rate 2021-12-07 19:20:00 18 /min Univ ersity of [facility] Body height 2021-12-07 19:20:00 160 cm [facility]i [facility] Body weight 2021-12-07 19:20:00 76.93 kg Universi [facility] BMI 2021-12-07 19:20:00 30.04 kg/m2 [facility] Systolic blood 2021-12-01 20:05:00 110 mm[Hg] Univer sity of pressure [facility] Diastolic blood 2021-12-01 20:05:00 74 mm[Hg] Unive rsity of pressure [facility] Heart rate 2021-12-01 20:05:00 96 /min Universi ty of [facility] Body temperature 2021-12-01 20:05:00 36.94 Asiya Univ ersity of [facility] Respiratory rate 2021-12-01 20:05:00 18 /min Univ ersity of [facility] Body height 2021-12-01 20:05:00 160 cm Universi [facility] of [facility] Body weight 2021-12-01 20:05:00 77.111 kg Universi ty of [facility] BMI 2021-12-01 20:05:00 30.11 kg/m2 Universi ty of [facility] BMI 2021-11-24 21:27:00 29.80 kg/m2 Universi ty of [facility] Systolic blood 2021-11-24 21:27:00 110 mm[Hg] Univer sity of pressure [facility] Diastolic blood 2021-11-24 21:27:00 66 mm[Hg] Unive rsity of pressure [facility] Heart rate 2021-11-24 21:27:00 85 /min Universi ty of [facility] Body temperature 2021-11-24 21:27:00 36.78 Asiya Univ ersity of [facility] Respiratory rate 2021-11-24 21:27:00 17 /min Univ ersity of [facility] Body height 2021-11-24 21:27:00 160 cm Universi ty of [facility] Body weight 2021-11-24 21:27:00 76.295 kg Universi ty of [facility] Systolic blood 2021-11-09 19:11:00 96 mm[Hg] Univer sity of pressure [facility] Diastolic blood 2021-11-09 19:11:00 62 mm[Hg] Unive rsity of pressure [facility] Heart rate 2021-11-09 19:11:00 100 /min Universi ty of [facility] Body temperature 2021-11-09 19:11:00 36.56 Asiya Univ ersity of [facility] Respiratory rate 2021-11-09 19:11:00 18 /min Univ ersity of [facility] Body height 2021-11-09 19:11:00 160 cm [facility]i ty of [facility] Body weight 2021-11-09 19:11:00 74.299 kg Universi ty of [facility] BMI 2021-11-09 19:11:00 29.02 kg/m2 Universi ty of [facility] BP Diastolic 2022-03-15 17:32:00 74 mm[Hg] Weight Measured 2022-03-15 17:32:00 171.20 pounds Height Measured 2022-03-15 17:32:00 63.10 inches Body Temperature 2022-03-15 17:32:00 98.60 degrees Heart Rate 2022-03-15 17:32:00 72.00 /min Respiratory Rate 2022-03-15 17:32:00 18.00 /min BP Systolic 2022-03-15 17:32:00 118 mm[Hg] BP Systolic 2020-11-05 10:23:00 137 mm[Hg] BP Diastolic 2020-11-05 10:23:00 86 mm[Hg] Weight Measured 2020-11-05 10:23:00 157.40 pounds Height Measured 2020-11-05 10:23:00 63.10 inches Body Temperature 2020-11-05 10:23:00 98.30 degrees Heart Rate 2020-11-05 10:23:00 61.00 /min Respiratory Rate 2020-11-05 10:23:00 BP Systolic 2020-10-27 10:09:00 95 mm[Hg] BP Diastolic 2020-10-27 10:09:00 50 mm[Hg] Weight Measured 2020-10-27 10:09:00 160.80 pounds Height Measured 2020-10-27 10:09:00 63.10 inches Body Temperature 2020-10-27 10:09:00 98.70 degrees Heart Rate 2020-10-27 10:09:00 78.00 /min Respiratory Rate 2020-10-27 10:09:00 BP Systolic 2020-09-03 13:31:00 120 mm[Hg] BP Diastolic 2020-09-03 13:31:00 79 mm[Hg] Weight Measured 2020-09-03 13:31:00 168.00 pounds Height Measured 2020-09-03 13:31:00 63.10 inches Body Temperature 2020-09-03 13:31:00 98.10 degrees Heart Rate 2020-09-03 13:31:00 102.00 /min Respiratory Rate 2020-09-03 13:31:00 BP Systolic 2020-08-14 15:46:00 133 mm[Hg] BP Diastolic 2020-08-14 15:46:00 82 mm[Hg] Weight Measured 2020-08-14 15:46:00 165.20 pounds Height Measured 2020-08-14 15:46:00 63.10 inches Body Temperature 2020-08-14 15:46:00 97.80 degrees Heart Rate 2020-08-14 15:46:00 88.00 /min Respiratory Rate 2020-08-14 15:46:00 16.00 /min BP Systolic 2020-08-13 14:07:00 140 mm[Hg] BP Diastolic 2020-08-13 14:07:00 76 mm[Hg] Weight Measured 2020-08-13 14:07:00 162.00 pounds Height Measured 2020-08-13 14:07:00 63.10 inches Body Temperature 2020-08-13 14:07:00 98.60 degrees Heart Rate 2020-08-13 14:07:00 64.00 /min Respiratory Rate 2020-08-13 14:07:00 18.00 /min BP Systolic 2020-07-07 14:04:00 112 mm[Hg] BP Diastolic 2020-07-07 14:04:00 68 mm[Hg] Weight Measured 2020-07-07 14:04:00 172.00 pounds Height Measured 2020-07-07 14:04:00 63.10 inches Body Temperature 2020-07-07 14:04:00 97.80 degrees Heart Rate 2020-07-07 14:04:00 72.00 /min Respiratory Rate 2020-07-07 14:04:00 16.00 /min BP Systolic 2020-03-24 15:59:00 139 mm[Hg] BP Diastolic 2020-03-24 15:59:00 81 mm[Hg] Weight Measured 2020-03-24 15:59:00 162.20 pounds Height Measured 2020-03-24 15:59:00 63.10 inches Body Temperature 2020-03-24 15:59:00 100.10 degrees Heart Rate 2020-03-24 15:59:00 107.00 /min Respiratory Rate 2020-03-24 15:59:00 18.00 /min BP Systolic 2018-11-09 09:44:00 122 mm[Hg] BP Diastolic 2018-11-09 09:44:00 85 mm[Hg] Weight Measured 2018-11-09 09:44:00 133.80 pounds Height Measured 2018-11-09 09:44:00 63.10 inches Body Temperature 2018-11-09 09:44:00 101.30 degrees Heart Rate 2018-11-09 09:44:00 105.00 /min Respiratory Rate 2018-11-09 09:44:00 18.00 /min BP Systolic 2018-08-30 13:50:00 104 mm[Hg] BP Diastolic 2018-08-30 13:50:00 72 mm[Hg] Weight Measured 2018-08-30 13:50:00 130.00 pounds Height Measured 2018-08-30 13:50:00 63.10 inches Body Temperature 2018-08-30 13:50:00 98.00 degrees Heart Rate 2018-08-30 13:50:00 80.00 /min Respiratory Rate 2018-08-30 13:50:00 16.00 /min Systolic (mm Hg) 2017-12-23 01:00:00 Marvel rial [facility] Diastolic (mm Hg) 2017-12-23 01:00:00 Mem orial [facility] Respitory Rate 2017-12-23 01:00:00 Memori al [facility] Systolic (mm Hg) 2017-12-22 23:00:00 Marvel rial [place] Diastolic (mm Hg) 2017-12-22 23:00:00 Mem orial [place] Respitory Rate 2017-12-22 23:00:00 Memori al [place] Respitory Rate 2017-12-22 21:00:00 Memori al [place] Systolic (mm Hg) 2017-12-22 21:00:00 Marvel rial [place] Diastolic (mm Hg) 2017-12-22 21:00:00 Mem [facility] Heart Rate 2017-12-22 17:21:00 [facility] BMI Calculated 2017-12-22 17:21:00 Memori al [place] Temperature Oral (F) 2017-12-22 17:21:00 98.6 F [facility] Height 2017-12-22 17:21:00 160.02 cm [facility] Weight 2017-12-22 17:21:00 [facility] Procedures Procedure Date / Time Performing Clinician Source Performed CONSENT FOR 2022-03-22 06:01:00 Doctor Unassigned, No [facility] POCT TEST 2022-03-22 00:00:00 Clare Dominguez [facility] CBC WITH DIFF 2022-02-08 09:50:00 Clare Dominguez Rishabh [facility] CBC WITH DIFF 2022-02-08 09:50:00 Clare Dominguez Rishabh [facility] SECTION 2022-02-07 13:28:00 Clare Dominguez [facility] SECTION 2022-02-07 13:28:00 Clare Dominguez [facility] CBC WITH DIFF 2022-02-07 06:35:00 Clare Dominguez [facility] HEPATITIS B SURFACE 2022-02-07 06:35:00 DominguezCynen [facility] ANTIGEN [facility] HB ABO GROUPING 2022-02-07 06:35:00 AlbertoClare [facility] RHO (D) IMMUNE GLOBULIN 2022-02-07 06:35:00 Clare Dominguez [facility] ADC OR KATHI ONLY - 2022-02-07 06:35:00 [facility] HIV 1/2 AG-AB WITH 2022-02-07 06:35:00 [facility] REFLEX [facility] CBC WITH DIFF 2022-02-07 06:35:00 AlbertoClare Rishabh [facility] HEPATITIS B SURFACE 2022-02-07 06:35:00 Alberto Clareotoniel [facility] ANTIGEN [facility] HB ABO GROUPING 2022-02-07 06:35:00 AlbertoClare Rishabh [facility] RHO (D) IMMUNE GLOBULIN 2022-02-07 06:35:00 Clare Dominguez [facility] ADC OR KATHI ONLY - 2022-02-07 06:35:00 Clare Dominguez [facility] HIV 1/2 AG-AB WITH 2022-02-07 06:35:00 [facility] REFLEX [facility] >14 WEEKS US 2022-02-07 00:53:35 [facility] LIMITED [facility] POCT URINALYSIS W/O 2022-02-06 22:27:00 Clare Dominguez [facility] SPECIFIC GRAVITY Medical Branch >14 WEEKS US 2022-01-30 23:51:17 Clare Dominguez [facility] DSU PRE-OP 2022-01-30 06:01:00 Doctor Unassigned, No [facility] DME/SUPPLY JUSTIFICATION 2022-01-19 06:01:00 Doctor Unassigned, No [facility] US PELVIS > 14 2022-01-12 23:01:53 Clare Dominguez [facility] ASSIGNMENT OF BENEFITS 2022-01-12 22:16:45 Doctor Unassigned, No [facility] POCT URINALYSIS W/O 2022-01-12 00:00:00 [facility] POCT URINALYSIS W/O 2022-01-05 00:00:00 Clare Dominguez [facility] POCT URINALYSIS W/O 2021-12-29 00:00:00 Adum, Baylee Youngblood [facility] ADC ONLY - FERN TEST 2021-12-22 00:42:00 Adum, Baylee Youngblood [facility] ADC CLC OR LCC ONLY - 2021-12-21 23:46:00 Clare Dominguez [facility] CBC WITH DIFF 2021-12-21 22:52:00 Clare Dominguez [place] [facility] HB ABO GROUPING 2021-12-21 22:50:00 Clare Dominguez [place] [facility] CONSENT/REFUSAL FOR 2021-12-21 21:49:38 Doctor Unassigned, No [facility] DIAGNOSIS AND TREATMENT [facility] ASSIGNMENT OF BENEFITS 2021-12-21 21:49:16 Doctor Unassigned, No [facility] TDAP VACCINE, >11 YRS, 2021-12-21 21:13:42 Clare Dominguez [facility] POCT URINALYSIS W/O 2021-12-21 00:00:00 Clare Dominguez [facility] POCT URINALYSIS W/O 2021-12-14 21:13:00 Clare Dominguez [facility] Medical Branch EXTERNAL PROVIDER 2021-12-13 05:01:00 Doctor Unassigned, No Univ ersity [facility] RECORDS Name Medical Branch CBC WITH DIFF 2021-12-07 18:56:00 Clare Dominguez [place] [facility] POCT URINALYSIS W/O 2021-12-07 00:00:00 [facility] POCT URINALYSIS W/O 2021-12-01 20:52:00 [facility] POCT URINALYSIS W/O 2021-11-24 21:32:00 [facility] POCT URINALYSIS W/O 2021-11-09 19:56:00 [facility] ASSIGNMENT OF BENEFITS 2021-11-09 18:48:33 Doctor Unassigned, No [facility] Medical Branch CONSENT/REFUSAL FOR 2020-08-23 23:29:02 Doctor Unassigned, No [facility] DIAGNOSIS AND TREATMENT [facility] Ekg 2018-03-13 00:00:00 Plan of Care Planned Activity Planned Date Details Comments Source Goal Plan of Care Note [code = 18196-4] Goal Plan of Care Note [code = 95922-6] Goal Plan of Care Note [code = 42746-7] Goal Plan of Care Note [code = 08415-3] Goal Plan of Care Note [code = 28387-3] Goal Plan of Care Note [code = 01391-9] Goal Plan of Care Note [code = 97329-2] Goal Plan of Care Note [code = 27434-0] Goal Plan of Care Note [code = 51805-3] Goal Plan of Care Note [code = 37479-0] Goal Plan of Care Note [code = 26259-3] Goal Plan of Care Note [code = 63169-5] Goal Plan of Care Note [code = 24701-6] Goal Plan of Care Note [code = 63035-9] Goal Plan of Care Note [code = 98739-3] Goal Plan of Care Note [code = 91276-7] Goal Plan of Care Note [code = 16098-2] Goal Plan of Care Note [code = 78784-0] Goal Plan of Care Note [code = 08868-0] Goal Plan of Care Note [code = 93034-7] Goal Plan of Care Note [code = 17361-6] Goal Plan of Care Note [code = 78110-8] Goal Plan of Care Note [code = 13105-1] Goal Plan of Care Note [code = 87803-6] Goal Plan of Care Note [code = 16480-7] Goal Plan of Care Note [code = 72157-0] Goal Plan of Care Note [code = 95296-5] Goal Plan of Care Note [code = 22736-3] Goal Plan of Care Note [code = 67537-6] Goal Plan of Care Note [code = 74801-6] Goal Plan of Care Note [code = 51243-5] Goal Plan of Care Note [code = 07972-9] Goal Plan of Care Note [code = 86852-6] Goal Plan of Care Note [code = 61637-5] Goal Plan of Care Note [code = 67380-5] Goal Plan of Care Note [code = 18277-5] Goal Plan of Care Note [code = 19801-6] Goal Plan of Care Note [code = 79259-7] Goal Plan of Care Note [code = 86002-3] Goal Plan of Care Note [code = 27399-4] Goal Plan of Care Note [code = 48201-8] Encounters Start End Encounter Admission Attending Care Care Encounter Source Date/Time Date/Time Type Type Clinicians Facility Department ID 2021-12-08 Outpatient [facility] [id number] [facility] 14:10:15 0127 [facility] 2022-07-10 2022-07-10 Outpatient SFA SFA [id number] [id number] Tomasz 17:09:16 17:09:16 0501 [facility] 2022-06-13 2022-06-13 Outpatient SFA SFA [id number] Tomasz 08:47:05 08:47:05 0404 [facility] 2022-06-06 2022-06-06 Outpatient SFA SFA [id number] Tomasz 13:59:33 13:59:33 0328 [facility] 2022-04-07 2022-04-07 Telephone AGNES Raymundo [id number] Univers 00:00:00 00:00:00 Aneatrice PRABHA [id number] ity of HOSPITAL [id number] Ahrris as [id number] [facility] [address] 2022-04-06 2022-04-06 Laboratory Only, Ang Db Test [facility] 1.2.8 [id number] [id number] Univers 14:45:00 15:00:00 Only Unknown, Attending HEALTH [id number] ity of [place] [id number] Harris as JAMES?BLEA [id number] Ak dicga KNEY [address] MEDICAL OFFICE BUILDING 2022-04-06 2022-04-06 Outpatient R SAMANTHA [facility] [id number] Univers 14:45:00 14:45:00 RANIA ity of [facility] 2022-03-22 2022-03-22 Outpatient R CLARE [facility] [facility] [id number] Univers 16:00:00 16:13:56 ity of [facility] 2022-03-22 2022-03-22 Routine Clare Dominguez [facility] 1.2.613.021 [id number] Univers 16:00:00 16:13:56 Cam TYRA 350.1.13.10 ity of [place] [facility] [phone] Ak dicestuardo [facility] [address] BU[address]ING 2022-03-22 2022-03-22 Orders Doctor AGNES 1.2.840.114 [id number] Univers 00:00:00 00:00:00 Only Unassigned, PRABHA 350.1.13.10 ity of [place] [facility] 4.2.7.2.686 Harris as [id number] [facility] [address] 2022-03-15 2022-03-15 Outpatient SFA SFA [id number] 023 Tomasz 17:25:52 17:25:52 0104 F [place] 2022-03-15 2022-03-15 Outpatient [id number] 00:00:00 00:00:00 Visit [id number] -[id number] 2022-03-02 2022-03-02 Outpatient R CLARE DOMINGUEZ [facility] [id number] Univers 13:15:00 13:15:00 ity of [facility] 2022-02-14 2022-02-14 Outpatient P [facility] [id number] Univers 15:00:00 15:00:00 ity of [facility] 2022-02-14 2022-02-14 Outpatient R [facility] [id number] Univers 14:15:00 14:47:32 ity of [facility] 2022-02-14 2022-02-14 Routine [facility] 1.2.669.426 [id number] Univers 14:15:00 14:47:32 Cam [place] 350.1.13.10 ity of Visit [facility] [place] [id number] Ak dical NAL [address] [place] [address] 2022-02-10 2022-02-10 [facility] 1.2.840.114 [id number] Univers 00:00:00 00:00:00 Cam [place] 350.1.13.10 i ty of [place] [id number] Ak dicga NAL [address] [place] [address] 2022-02-09 2022-02-09 Telephone Clare Dominguez [facility] 1.2.840.114 [id number] Univers 00:00:00 00:00:00 Cam [place] 350.1.13.10 i ty of [place] [phone] Ak dical NAL [address] [place] [address] 2022-02-06 2022-02-08 Inpatient P CLARE DOMINGUEZ [facility] HI[place] [id number] Univers 23:22:00 20:30:00 ity [facility] 2022-02-06 2022-02-08 Hospital Clare Dominguez [facility] 1.2.840.114 [id number] Univers 23:22:00 20:30:00 Encounter Cam [place] 350.1.13.10 it[place] [phone] [facility] [address] 2022-02-07 2022-02-07 [facility] 1.2.379.525 [id number] Univers 08:00:00 09:59:00 Cam [place] 350.1.13.10 i ty of [place] [facility] [id number] [facility] [address] 2022-02-06 2022-02-06 Outpatient R CLARE DOMINGUEZ [facility] [id number] Univers 15:45:00 17:31:24 ity of [facility] 2022-02-06 2022-02-06 Routine [facility] 1.2.274.060 [id number] 0354 Univers 15:45:00 17:31:24 Cam [place] 350.1.13.10 ity of Visit [facility] [phone] Ak dical NAL [address] [place] [address] 2022-01-31 2022-01-31 Telephone Clare Dominguez [facility] 1.2.840.114 [id number] Univers 00:00:00 00:00:00 Cam [place] 350.1.13.10 i ty of [place] [id number] Ak dical NAL [address] [facility] 2022-01-30 2022-01-30 Outpatient R CLARE DOMINGUEZ [facility] [id number] Univers 16:15:00 17:05:53 ity of [facility] 2022-01-30 2022-01-30 Routine [facility] 1.2.127.158 [id number] 9694 Univers 16:15:00 17:05:53 Cam [place] 350.1.13.10 ity of Visit [facility] [phone] Ak dical NAL 134 [facility] 2022-01-30 2022-01-30 Orders Doctor ALARCON 1.2.840.114 [id number] Univers 00:00:00 00:00:00 Only Unassigned, PRABHA 350.1.13.10 ity of [place] [facility] 4.2.7.2.686 [place] as [id number] [facility] [address] 2022-01-27 2022-01-27 Outpatient P [facility] [id number] Univers 11:00:00 11:00:00 ity of [facility] 2022-01-19 2022-01-19 Outpatient R CLARE DOMINGUEZ [facility] [id number] Univers 16:15:00 16:15:00 ity of [facility] 2022-01-19 2022-01-19 Refill Clare Dominguez [facility] 1.2.011.804 [id number] Univers 00:00:00 00:00:00 Cam [place] 350.1.13.10 i ty of [place] [id number] Ak dical NAL [address] [place] [address] 2022-01-19 2022-01-19 Orders Doctor AGNES 1.2.840.114 [id number] Univers 00:00:00 00:00:00 Only Unassigned, PRABHA 350.1.13.10 ity of [place] [facility] 4.2.7.2.686 [place] as [id number] [facility] [address] 2022-01-12 2022-01-12 Hospital [facility] 1.2.840.114 [id number] Univers 17:20:36 23:59:00 Encounter Cam [place] 350.1.13.10 ity of [place] [facility] [id number] [facility] [address] 2022-01-12 2022-01-12 Outpatient R CLARE DOMINGUEZ [facility] [id number] Univers 16:15:00 17:10:27 ity of [facility] 2022-01-12 2022-01-12 Routine [facility] 1.2.147.482 [id number] Univers 16:15:00 17:10:27 Cam [place] 350.1.13.10 ity of Visit [facility] [id number] Ak dical NAL 134 [facility] 2022-01-12 2022-01-12 Orders Doctor AGNES 1.2.840.114 [id number] Univers 00:00:00 00:00:00 Only Unassigned, PRABHA 350.1.13.10 ity of [place] [facility] 4.2.7.2.686 [place] as [id number] [address] 2022-01-09 2022-01-09 Outpatient R CLARE DOMINGUEZ [facility] [id number] Univers 00:00:00 00:00:00 ity of [facility] 2022-01-05 2022-01-05 Outpatient R CLARE DOMINGUEZ [facility] [id number] Univers 16:15:00 16:49:29 ity of [facility] 2022-01-05 2022-01-05 [facility] 1.2.529.599 [id number] Univers 16:15:00 16:49:29 Cam [place] 350.1.13.10 ity of Visit [place] [id number] Ak dical NAL [address] [place] [address] 2021-12-29 2021-12-29 Outpatient R CLARE DOMINGUEZ [facility] [id number] Univers 16:00:00 16:51:38 ity of [facility] 2021-12-29 2021-12-29 Routine Oneil Leah [facility] 1.2.840.11 [id number] Univers 16:00:00 16:51:38 Clare DominguezTON 350.1.13.10 ity of Visit [place] [id number] Ak dical NAL [address] [place] [address] 2021-12-22 2021-12-22 Case Clare Dominguez [facility] 1.2.581.015 [id number] Univers 00:00:00 00:00:00 Management Cam [place] 350.1.13.10 ity of [place] [id number] Ak dical NAL [address] [place] [address] 2021-12-21 2021-12-21 Outpatient P ALBERTO [facility] [place] [id number] Univers 16:47:00 20:20:00 ity of [facility] 2021-12-21 2021-12-21 Hospital Clare Dominguez [facility] 1.2.840.114 [id number] Univers 16:47:00 20:20:00 Encounter Cam [place] 350.1.13.10 ity of [place] [id number] [facility] [address] 2021-12-21 2021-12-21 Outpatient R ALBERTO CLARE [facility] [id number] Univers 16:00:00 16:39:39 ity of [facility] 2021-12-21 2021-12-21 Routine [facility] 1.2.362.455 [id number] Univers 16:00:00 16:39:39 Cam [place] 350.1.13.10 ity of Visit [facility] [phone] Ak dical NAL [address] [place] [address] 2021-12-14 2021-12-14 Outpatient R CLARE DOMINGUEZ [facility] [id number] Univers 16:00:00 16:56:40 ity of [facility] 2021-12-14 2021-12-14 Routine [facility] 1.2.840.063 [id number] Univers 16:00:00 16:56:40 Cam [place] 350.1.13.10 ity of Visit [facility] [place] [id number] Ak dical NAL 134 [facility] 2021-12-13 2021-12-13 Orders Doctor ALARCON 1.2.840.114 [id number] Univers 00:00:00 00:00:00 Only Unassigned, PRABHA 350.1.13.10 ity of [place] [facility] 4.2.7.2.686 [place] as [phone] [facility] [address] 2021-12-07 2021-12-07 Routine Clare Dominguez [facility] 1.2.882.317 [id number] Univers 13:45:00 14:36:56 Cam [place] 350.1.13.10 ity of Visit [facility] [place] [phone] Ak dical NAL 134 [facility] 2021-12-07 2021-12-07 Outpatient R CLARE DOMINGUEZ [facility] [id number] Univers 13:45:00 14:36:56 ity of [facility] 2021-12-07 2021-12-07 Expeller Operator Nydia Cordero Lab Main [facility] 1.2.8 40.114 [id number] Univers 13:00:00 13:15:00 Visit Clare Dominguez Rishabh [place] 350.1.13.10 ity of [facility] [place]2.7.2.[place] [id number] Ak dical NAL [address] [facility] 2021-12-05 2021-12-05 Refill DominguezClare [facility] 1.2.693.731 [id number] Univers 00:00:00 00:00:00 Cam [place] 350.1.13.10 i ty of [facility] [place]2.[place] [id number] Ak dical NAL 134 [facility] 2021-12-01 2021-12-01 Outpatient R DOMINGUEZCLARE [facility] [id number] Univers 15:15:00 15:45:42 ity of [facility] 2021-12-01 2021-12-01 Routine [facility] 1.2.229.405 [id number] Univers 15:15:00 15:45:42 Cam [place] 350.1.13.10 ity of Visit [facility] [place]2.[place] [id number] Ak dical NAL 134 [facility] 2021-11-29 2021-11-29 Telephone AlbertoClare [facility] 1.2.840.114 [id number] Univers 00:00:00 00:00:00 Cam [place] 350.1.13.10 i ty of [place] [phone] [facility] NAL [address] [place] [address] 2021-11-24 2021-11-24 Outpatient R ALBERTO CLARE [facility] [id number] Univers 16:00:00 16:58:05 ity of [facility] 2021-11-24 2021-11-24 Routine [facility] 1.2.942.794 [id number] Univers 16:00:00 16:58:05 Rishabh MARY 350.1.13.10 ity of Visit [place] [phone] [address] 2021-11-15 2021-11-15 [facility] 1.2.000.099 [id number] Univers 00:00:00 00:00:00 Management Leah MARY 350.1.13.10 ity of [place] [id number] [address] 2021-11-13 2021-11-13 Refill [facility] 1.2.130.582 [id number] [id number] Univers 00:00:00 00:00:00 Cam TYRA 350.1.13.10 i ty of [place] [id number] [address] 2021-11-09 2021-11-09 Outpatient R CLARE DOMINGUEZ [facility] [id number] Univers 14:00:00 15:16:02 ity of [facility] 2021-11-09 2021-11-09 Initial Clare Dominguez [facility] 1.2.310.595 [id number] Univers 14:00:00 15:16:02 Rishabh MARY 350.1.13.10 ity of Visit [place] [phone] [address] 2021-11-09 2021-11-09 Orders Doctor AGNES 1.2.840.114 [id number] Univers 00:00:00 00:00:00 Only Unassigned, PRABHA 350.1.13.10 ity of [place] [facility] 4.2.7.2.686 [place] as [id number] [address] 2020-08-23 2020-08-23 [facility] 1.2.840.114 [id number] Univers 18:31:10 23:59:00 Encounter Mary Mary 350.1.13.10 ity of [place] 4.2.7.2.686 [facility] [phone] Medi gonzalo [address] 2020-08-23 2020-08-23 Outpatient Dagoberto JAMES [facility] [id number] Univers 00:00:00 00:00:00 MARY itpb of [facility] 2020-08-23 2020-08-23 Orders Doctor AGNES 1.2.840.114 [id number] Univers 00:00:00 00:00:00 Only Unassigned, PRABHA 350.1.13.10 ity of [facility] 4.2.7.2.686 [facility] [phone] [facility] [address] 2020-04-07 2020-04-07 Outpatient NAYA Ruiz Abhinav [id number] [facility] 00:00:00 00:00:00 [facility] 2017-12-22 2017-12-23 Emergency [facility] [id number] Memoria 17:20:00 02:29:[address] 2017-12-22 2017-12-23 Emergency [facility] [id number] Memoria 17:20:00 02:29:[address] 2017-12-22 2017-12-22 [facility] [id number] 12:20:00 21:29:00 , Deepali 86 Results Test Description Test Time Test Comments Results Result Comments Source COMPREHENSIVE METABOLIC PANEL 2022-06-14 06:04:18 Test Item Value Reference Range Interpretation Comme nts GLUCOSE (test code = 2217) 101 MG/DL 70-99 H BUN (test code = 2208) 9 MG/DL 6-20 CREATININE (test code = 0.79 MG/DL 0.60-1.30 2213) eGFR (2020 CKD-EPI) (test 107 ML/MIN/1.73 >60 code = 04418) CALC BUN/CREAT (test code = 11 RATIO 6-28 2234) SODIUM (test code = 2231) 140 MEQ/L 133-146 POTASSIUM (test code = 2228) 4.6 MEQ/L 3.5-5.4 CHLORIDE (test code = 2215) 104 MEQ/L 95-107 CARBON DIOXIDE (test code = 23 MEQ/L 19-31 2206) CALCIUM (test code = 2208) 9.6 MG/DL 8.5-10.5 PROTEIN, TOTAL (test code = 7.9 G/DL 6.1-8.3 2228) ALBUMIN (test code = 220) 4.7 G/DL 3.5-5.2 CALC GLOBULIN (test code = 3.2 G/DL 1.9-3.7 2239) CALC A/G RATIO (test code = 1.5 RATIO 1.0-2.6 2233) BILIRUBIN, TOTAL (test code <0.2 MG/DL See_Comment [Automated message] The = 2206) system which ge nerated this result transmit bob reference range : <=1.2. The reference range was not used to interpr et this result as dominique l/abnormal. ALKALINE PHOSPHATASE (test 129 U/L 40-115 H code = 220) AST (test code = 2218) 20 U/L 9-40 ALT (test code = 221) 22 U/L 5-40 TSH, THIRD [id number] 05:39:56 Test Item Value Reference Range Interpretation Comments TSH, THIRD 2.170 UIU/ML 0.400-4.100 [facility] has im portant GENERATION (test pathology s taff code = 2821) changes effecti ve 05/10/2022. New pathology staff will provide uninter rupted, excellent patie nt care and clinical consultation. S ee URL: [email or web address]. UNLES S OTHERWISE INDIC ATED, ALL TESTING PER FORMED AT [facility] [employer], [facility]. [address] [place] [id number] [place] [address] RADHA DIRECTOR: Lizzette RUIZ AMANDA NUMBER [id number] CAP ACCREDITATION N O. [id number] CBC W/AUTO DIFF WITH [id number] 03:50:31 Test Item Value Reference Range Interpretation Comments WBC (test code = 8.3 K/UL 3.5-11.0 1001) RBC (test code = 4.84 M/UL 3.80-5.40 1002) HEMOGLOBIN (test code 12.5 G/DL 11.5-15.5 = 1003) HEMATOCRIT (test code 38.8 % 34.0-45.0 = 1004) MCV (test code = 80.2 fL 80.0-99.0 1005) MCH (test code = 25.8 PG 25.0-33.0 1006) MCHC (test code = 32.2 G/DL 31.0-36.0 1007) RDW (test code = 13.9 % 11.5-15.0 1038) NEUTROPHILS (test 78.5 % code = 1008) LYMPHOCYTES (test 12.8 % code = 1010) MONOCYTES (test code 7.6 % = 1011) EOSINOPHILS (test 0.8 % code = 1012) BASOPHILS (test code 0.2 % = 1013) IMMATURE GRANULOCYTES 0.1 % (test code = 1036) NUCLEATED RBCS (test 0.0 /100 WBC'S See_Comment [Aut omated code = 1065) message] The sy stem which generated this result transmitted reference range : 0.0. The refere nce range was not u sed to interpret th is result as normal/abnormal . PLATELET COUNT (test 301 K/UL 130-400 code = 1015) ABSOLUTE NEUTROPHILS 6.52 K/UL 1.50-7.50 (test code = 1066) ABSOLUTE LYMPHOCYTES 1.06 K/UL 1.00-4.00 (test code = 1067) ABSOLUTE MONOCYTES 0.63 K/UL 0.20-1.00 (test code = 1068) ABSOLUTE EOSINOPHILS 0.07 K/UL 0.00-0.50 (test code = 1040) ABSOLUTE BASOPHILS 0.02 K/UL 0.00-0.20 (test code = 1069) ABS IMMATURE 0.01 K/UL 0.00-0.10 GRANULOCYTES (test code = 1020) ABS NUCLEATED RBCS 0.00 K/UL 0.00-0.11 (test code = 64191) CULTURE, [id number] 13:44:27SPECIMEN NUMBER: [id number] CULTURE, THROAT SPECIMEN NUMBER: [id number] SOURCE: THROAT REPORT STATUS:FINAL FINAL REPORT: 06/08/2022 NORMAL RESPIRATORY JULIANNA [facility] has important pathology staff changes effective 05/10/2022. New pathology staff will provide uninterrupted, excellent patient care and clinical consultation. See URL: [email or web address]. UNLESS OTHERWISE INDICATED, ALL TESTING PERFORMED AT [facility] [address] [place] [address] MIXER LEVER OPERATOR: ANATOLIY KOHLI M.D. CLIA NUMBER [id number] [facility] [place]. [id number] 22:09:00 Test Item Value Reference Range Interpretation Comments POCT PREG (test code = 1605) Negative On board controls acceptable with C Yes Line (test code = 3574) POCT PREG LOT # (test code = 3575) POCT PREG TEST DATE (test code = 3576) [facility] with [id number] 11:22:05 Test Item Value Reference Range Interpretation Comments WBC (test code = See_Comment H [Automated 5290-2) message] The system which generated this result transmit bob reference range : 4.30 - 11.10 10*3/?L. The reference range was not used to interpret this result as normal/abnormal . RBC (test code = See_Comment L [Automated 619-8) message] The system which generated this result transmit bob reference range : 3.93 - 5.25 10*6/?L. The reference range was not used to interpret this result as normal/abnormal . HGB (test code = 8.6 g/dL 11.6-15.0 L 718-7) HCT (test code = 26.6 % 35.7-45.2 L 4544-3) MCV (test code = 81.6 fL 80.6-95.5 787-2) MCH (test code = 26.4 pg 25.9-32.8 785-6) MCHC (test code = 32.3 g/dL 31.6-35.1 786-4) RDW-SD (test code = 38.9 fL 39.0-49.9 L 78011-9) RDW-CV (test code = 13.1 % 12.0-15.5 788-0) PLT (test code = See_Comment [Automated 777-3) message] The system which generated this result transmit bob reference range : 166 - 358 10*3/ ?L. The reference range was not u sed to interpret th is result as normal/abnormal . MPV (test code = 11.9 fL 9.5-12.9 54534-2) NRBC/100 WBC (test See_Comment [Automat ed code = 0948956545) message] The system which generated this result transmit bob reference range : 0.0 - 10.0 /100 WBCs. The reference range was not used to interpret this result as normal/abnormal . NRBC x10^3 (test code See_Comment [Auto mated = 1615278598) message] The system which generated this result transmit bob reference range : 10*3/?L. The reference range was not used to interpret this result as normal/abnormal . GRAN MAT (NEUT) % 80.1 % (test code = 770-8) IMM GRAN % (test code 0.60 % = 0792455690) LYMPH % (test code = 10.5 % 736-9) MONO % (test code = 8.4 % 5905-5) EOS % (test code = 0.2 % 713-8) BASO % (test code = 0.2 % 706-2) GRAN MAT x10^3(ANC) 11.20 10*3/uL 1.88-7.09 H (test code = 2978506205) IMM GRAN x10^3 (test 0.09 10*3/uL 0.00-0.06 H code = 6532693407) LYMPH x10^3 (test code 1.47 10*3/uL 1.32-3.29 = 731-0) MONO x10^3 (test code 1.17 10*3/uL 0.33-0.92 H = 742-7) EOS x10^3 (test code = 0.03 10*3/uL 0.03-0.39 711-2) BASO x10^3 (test code 0.03 10*3/uL 0.01-0.07 = 704-7) Lab Interpretation Abnormal (test code = 25036-9) [facility] with [id number] 11:22:05 Test Item Value Reference Range Interpretation Comments WBC (test code = See_Comment H [Automated 8590-2) message] The system which generated this result transmit bob reference range : 4.30 - 11.10 10*3/?L. The reference range was not used to interpret this result as normal/abnormal . RBC (test code = See_Comment L [Automated 789-8) message] The system which generated this result transmit bob reference range : 3.93 - 5.25 10*6/?L. The reference range was not used to interpret this result as normal/abnormal . HGB (test code = 8.6 g/dL 11.6-15.0 L 718-7) HCT (test code = 26.6 % 35.7-45.2 L 4544-3) MCV (test code = 81.6 fL 80.6-95.5 787-2) MCH (test code = 26.4 pg 25.9-32.8 785-6) MCHC (test code = 32.3 g/dL 31.6-35.1 786-4) RDW-SD (test code = 38.9 fL 39.0-49.9 L 26620-8) RDW-CV (test code = 13.1 % 12.0-15.5 788-0) PLT (test code = See_Comment [Automated 777-3) message] The system which generated this result transmit bob reference range : 166 - 358 10*3/ ?L. The reference range was not u sed to interpret th is result as normal/abnormal . MPV (test code = 11.9 fL 9.5-12.9 16978-5) NRBC/100 WBC (test See_Comment [Automat ed code = 5770729879) message] The system which generated this result transmit bbo reference range : 0.0 - 10.0 /100 WBCs. The reference range was not used to interpret this result as normal/abnormal . NRBC x10^3 (test code See_Comment [Auto mated = 7885881586) message] The system which generated this result transmit bob reference range : 10*3/?L. The reference range was not used to interpret this result as normal/abnormal . GRAN MAT (NEUT) % 80.1 % (test code = 770-8) IMM GRAN % (test code 0.60 % = 3579469110) LYMPH % (test code = 10.5 % 736-9) MONO % (test code = 8.4 % 5905-5) EOS % (test code = 0.2 % 713-8) BASO % (test code = 0.2 % 706-2) GRAN MAT x10^3(ANC) 11.20 10*3/uL 1.88-7.09 H (test code = 8471870122) IMM GRAN x10^3 (test 0.09 10*3/uL 0.00-0.06 H code = 9613807020) LYMPH x10^3 (test code 1.47 10*3/uL 1.32-3.29 = 731-0) MONO x10^3 (test code 1.17 10*3/uL 0.33-0.92 H = 742-7) EOS x10^3 (test code = 0.03 10*3/uL 0.03-0.39 711-2) BASO x10^3 (test code 0.03 10*3/uL 0.01-0.07 = 704-7) Lab Interpretation Abnormal (test code = 91947-0) [facility] (D) IMMUNE [id number] 18:53:21 Test Item Value Reference Range Interpretation Comments RHIG CANDIDATE? No- see comment Patient i s not a (test code = candidate for R hIg- 5055) Patient is Rh Positive.Perfor med at [facility] Laboratory [facility] Blood [address] [place], [place] [address]Toll Free: [phone] A No. [id number] [facility] (D) IMMUNE [id number] 18:53:21 Test Item Value Reference Range Interpretation Comments RHIG CANDIDATE? No- see comment Patient i s not a (test code = candidate for R hIg- 5055) Patient is Rh Positive.Perfor med at [facility] Laboratory [facility] Blood [address] [place], [place] [id number] Free: [phone] A No. [id number] [facility] B Surface [id number] 18:19:36 Test Item Value Reference Range Interpretation Comments HBsAg Semi-Quantitative (test code = Negative Negative 5-3) [facility] B Surface [id number] 18:19:36 Test Item Value Reference Range Interpretation Comments HBsAg Semi-Quantitative (test code = Negative Negative 5195-3) [facility] - [id number] 10:19:11 Test Item Value Reference Range Interpretation Comments RPR (Qualitative) (test code = Nonreactive Nonreactive 32997-7) Lab Interpretation (test code = Normal 77378-5) [facility] - [id number] 10:19:11 Test Item Value Reference Range Interpretation Comments RPR (Qualitative) (test code = Nonreactive Nonreactive 13282-2) Lab Interpretation (test code = Normal 75895-4) [facility] 1/2 AG-AB WITH [id number] 09:04:06 Test Item Value Reference Range Interpretation Comments HIV Negative Negative Semi-quantitative (test code = 99089-5) AMY (test code = Non-reactive for HIV-1 AMY) antigen and HIV-1/HIV-2 antibodies. ?No laboratory evidence of HIV infection. ?Repeat in 2-4 weeks if acute HIV infection is suspected. [facility] 1/2 AG-AB WITH [id number] 09:04:06 Test Item Value Reference Range Interpretation Comments HIV Negative Negative Semi-quantitative (test code = 70389-9) AMY (test code = Non-reactive for HIV-1 AMY) antigen and HIV-1/HIV-2 antibodies. ?No laboratory evidence of HIV infection. ?Repeat in 2-4 weeks if acute HIV infection is suspected. [facility] [id number] 08:33:28 Test Item Value Reference Range Interpretation Comments ABO & RH (test code B Positive Performe d at [facility] = 20) Laboratory Serv [facility] Blood Bank[address] [place], [place] [address]Toll Free: [phone] A No. [id number] IAT (test code = Negative Performed a t [facility] 1185) Laboratory Serv [facility] Blood Bank1 [address] [place], [place] [id number] Free: [phone] A No. [id number] [facility] and Screen - ONCE [id number] 08:33:28 Test Item Value Reference Range Interpretation Comments ABO & RH (test code B Positive Performe d at [facility] = 20) Laboratory [facility] Blood Bank1 [address] [place] [phone] Free: [phone] A No. [id number] IAT (test code = Negative Performed a t [facility] 1185) Laboratory [facility] Blood [facility]1 [address] [place] [phone] Free: [phone] A No. [id number] [facility] [id number] 07:59:34 Test Item Value Reference Range Interpretation Comments WBC (test code = See_Comment [Automated 4990-2) message] The sy stem which generated this result transmitted reference range : 4.30 - 11.10 10*3/?L. The reference range was not used to interpret this result as normal/abnormal . RBC (test code = See_Comment L [Automated 789-8) message] The sy stem which generated this result transmitted reference range : 3.93 - 5.25 10*6/?L. The reference range was not used to interpret this result as normal/abnormal . HGB (test code = 9.0 g/dL 11.6-15.0 L 718-7) HCT (test code = 27.9 % 35.7-45.2 L 4544-3) MCV (test code = 82.5 fL 80.6-95.5 787-2) MCH (test code = 26.6 pg 25.9-32.8 785-6) MCHC (test code = 32.3 g/dL 31.6-35.1 786-4) RDW-SD (test code = 39.9 fL 39.0-49.9 62004-7) RDW-CV (test code = 13.3 % 12.0-15.5 788-0) PLT (test code = See_Comment [Automated 777-3) message] The sy stem which generated this result transmitted reference range : 166 - 358 10*3/ ?L. The reference r sariah was not used to interpret this result as normal/abnormal . MPV (test code = 12.5 fL 9.5-12.9 67047-2) NRBC/100 WBC (test See_Comment [Automat ed code = [id number]) message] The system which generated this result transmitted reference range : 0.0 - 10.0 /100 WBCs. The refer ence range was not u sed to interpret th is result as normal/abnormal . NRBC x10^3 (test code See_Comment [Auto mated = 9693263275) message] The s ystem which generated this result transmitted reference range : 10*3/?L. The reference range was not used to interpret this result as normal/abnormal . GRAN MAT (NEUT) % 74.7 % (test code = 770-8) IMM GRAN % (test code 0.70 % = 0064621289) LYMPH % (test code = 15.3 % 736-9) MONO % (test code = 7.8 % 5905-5) EOS % (test code = 1.2 % 713-8) BASO % (test code = 0.3 % 706-2) GRAN MAT x10^3(ANC) 7.44 10*3/uL 1.88-7.09 H (test code = 1440387228) IMM GRAN x10^3 (test 0.07 10*3/uL 0.00-0.06 H code = 7783891762) LYMPH x10^3 (test code 1.52 10*3/uL 1.32-3.29 = 731-0) MONO x10^3 (test code 0.78 10*3/uL 0.33-0.92 = 742-7) EOS x10^3 (test code = 0.12 10*3/uL 0.03-0.39 711-2) BASO x10^3 (test code 0.03 10*3/uL 0.01-0.07 = 704-7) Lab Interpretation Abnormal (test code = 96661-9) [facility] with [id number] 07:59:34 Test Item Value Reference Range Interpretation Comments WBC (test code = See_Comment [Automated 6190-2) message] The sy stem which generated this result transmitted reference range : 4.30 - 11.10 10*3/?L. The reference range was not used to interpret this result as normal/abnormal . RBC (test code = See_Comment L [Automated 789-8) message] The sy stem which generated this result transmitted reference range : 3.93 - 5.25 10*6/?L. The reference range was not used to interpret this result as normal/abnormal . HGB (test code = 9.0 g/dL 11.6-15.0 L 718-7) HCT (test code = 27.9 % 35.7-45.2 L 4544-3) MCV (test code = 82.5 fL 80.6-95.5 787-2) MCH (test code = 26.6 pg 25.9-32.8 785-6) MCHC (test code = 32.3 g/dL 31.6-35.1 786-4) RDW-SD (test code = 39.9 fL 39.0-49.9 90403-3) RDW-CV (test code = 13.3 % 12.0-15.5 788-0) PLT (test code = See_Comment [Automated 777-3) message] The sy stem which generated this result transmitted reference range : 166 - 358 10*3/ ?L. The reference r sariah was not used to interpret this result as normal/abnormal . MPV (test code = 12.5 fL 9.5-12.9 54350-3) NRBC/100 WBC (test See_Comment [Automat ed code = 7582185392) message] The system which generated this result transmitted reference range : 0.0 - 10.0 /100 WBCs. The refer ence range was not u sed to interpret th is result as normal/abnormal . NRBC x10^3 (test code See_Comment [Auto mated = 9950438329) message] The s ystem which generated this result transmitted reference range : 10*3/?L. The reference range was not used to interpret this result as normal/abnormal . GRAN MAT (NEUT) % 74.7 % (test code = 770-8) IMM GRAN % (test code 0.70 % = 2953110517) LYMPH % (test code = 15.3 % 736-9) MONO % (test code = 7.8 % 5905-5) EOS % (test code = 1.2 % 713-8) BASO % (test code = 0.3 % 706-2) GRAN MAT x10^3(ANC) 7.44 10*3/uL 1.88-7.09 H (test code = 9865877218) IMM GRAN x10^3 (test 0.07 10*3/uL 0.00-0.06 H code = 7018858796) LYMPH x10^3 (test code 1.52 10*3/uL 1.32-3.29 = 731-0) MONO x10^3 (test code 0.78 10*3/uL 0.33-0.92 = 742-7) EOS x10^3 (test code = 0.12 10*3/uL 0.03-0.39 711-2) BASO x10^3 (test code 0.03 10*3/uL 0.01-0.07 = 704-7) Lab Interpretation Abnormal (test code = 79152-0) [facility] URINALYSIS W/O SPECIFIC [id number] 22:27:00 Test Item Value Reference Range Interpretation Comments POCT PH U (test code = 3254) n/a 5-8 POCT U LEUK EST (test code = n/a Negative - Negative 3263) POCT U NIT (test code = 3262) n/a Negative - Negative POCT U PROT (test code = 3259) negative Negative - Negative POCT U GLU (test code = 3256) negative Negative - Negative POCT U KETONE (test code = 3258) n/a Negative - Negative POCT U BLD (test code = 3257) n/a Negative - Negative [facility] URINALYSIS W/O SPECIFIC [id number] 21:23:00 Test Item Value Reference Range Interpretation Comments POCT PH U (test code = 3254) n/a 5-8 POCT U LEUK EST (test code = n/a Negative - Negative 3263) POCT U NIT (test code = 3262) n/a Negative - Negative POCT U PROT (test code = 3259) negative Negative - Negative POCT U GLU (test code = 3256) negative Negative - Negative POCT U KETONE (test code = 3258) n/a Negative - Negative POCT U BLD (test code = 3257) n/a Negative - Negative [facility] [id number] 21:14:00 Test Item Value Reference Range Interpretation Comments POCT PH U (test code = 3254) n/a 5-8 POCT U LEUK EST (test code = n/a Negative - Negative 3263) POCT U NIT (test code = 3262) n/a Negative - Negative POCT U PROT (test code = 3259) negative Negative - Negative POCT U GLU (test code = 3256) negative Negative - Negative POCT U KETONE (test code = 3258) n/a Negative - Negative POCT U BLD (test code = 3257) n/a Negative - Negative [facility] [id number] 21:14:00 Test Item Value Reference Range Interpretation Comments POCT PH U (test code = 3254) n/a 5-8 POCT U LEUK EST (test code = n/a Negative - Negative 3263) POCT U NIT (test code = 3262) n/a Negative - Negative POCT U PROT (test code = 3259) negative Negative - Negative POCT U GLU (test code = 3256) negative Negative - Negative POCT U KETONE (test code = 3258) n/a Negative - Negative POCT U BLD (test code = 3257) n/a Negative - Negative [facility] [id number] 21:21:00 Test Item Value Reference Range Interpretation Comments POCT PH U (test code = 3254) n/a 5-8 POCT U LEUK EST (test code = n/a Negative - Negative 3263) POCT U NIT (test code = 3262) n/a Negative - Negative POCT U PROT (test code = 3259) negative Negative - Negative POCT U GLU (test code = 3256) negative Negative - Negative POCT U KETONE (test code = 3258) n/a Negative - Negative POCT U BLD (test code = 3257) n/a Negative - Negative [facility] - ONCE [id number] 23:52:14 Test Item Value Reference Range Interpretation Comments ABO & RH (test code B Positive Performe d at [place] = 20) Laboratory Serv [facility] Blood Bank1 [address] [place], [place] [id number] Free: [phone] A No. [id number] IAT (test code = Negative Performed a t [facility] 1185) Laboratory Serv [facility]1 [address] [place] [phone] Free: [phone] A No. [id number] [facility] WITH [id number] 23:09:24 Test Item Value Reference Range Interpretation Comments WBC (test code = See_Comment [Automated 6690-2) message] The sy stem which generated this result transmitted reference range : 4.30 - 11.10 10*3/?L. The reference range was not used to interpret this result as normal/abnormal . RBC (test code = See_Comment L [Automated 789-8) message] The sy stem which generated this result transmitted reference range : 3.93 - 5.25 10*6/?L. The reference range was not used to interpret this result as normal/abnormal . HGB (test code = 9.7 g/dL 11.6-15 L 718-7) HCT (test code = 28.5 % 35.7-45.2 L 4544-3) MCV (test code = 85.1 fL 80.6-95.5 787-2) MCH (test code = 29.0 pg 25.9-32.8 785-6) MCHC (test code = 34.0 g/dL 31.6-35.1 786-4) RDW-SD (test code = 39.3 fL 39-49.9 72562-1) RDW-CV (test code = 12.7 % 12-15.5 788-0) PLT (test code = See_Comment [Automated 777-3) message] The sy stem which generated this result transmitted reference range : 166 - 358 10*3/ ?L. The reference r sariah was not used to interpret this result as normal/abnormal . MPV (test code = 11.4 fL 9.5-12.9 93529-7) NRBC/100 WBC (test See_Comment [Automat ed code = 9466775016) message] The system which generated this result transmitted reference range : 0.0 - 10.0 /100 WBCs. The refer ence range was not u sed to interpret th is result as normal/abnormal . NRBC x10^3 (test code See_Comment [Auto mated = 0609224603) message] The s ystem which generated this result transmitted reference range : 10*3/?L. The reference range was not used to interpret this result as normal/abnormal . GRAN MAT (NEUT) % 70.6 % (test code = 770-8) IMM GRAN % (test code 0.70 % = 7209620467) LYMPH % (test code = 16.4 % 736-9) MONO % (test code = 9.6 % 5905-5) EOS % (test code = 2.4 % 713-8) BASO % (test code = 0.3 % 706-2) GRAN MAT x10^3(ANC) 6.39 10*3/uL 1.88-7.09 (test code = 0287797785) IMM GRAN x10^3 (test 0.06 10*3/uL 0-0.06 code = 1005640922) LYMPH x10^3 (test code 1.48 10*3/uL 1.32-3.29 = 731-0) MONO x10^3 (test code 0.87 10*3/uL 0.33-0.92 = 742-7) EOS x10^3 (test code = 0.22 10*3/uL 0.03-0.39 711-2) BASO x10^3 (test code 0.03 10*3/uL 0.01-0.07 = 704-7) Lab Interpretation Abnormal (test code = 60523-6) [facility] [id number] 21:05:00 Test Item Value Reference Range Interpretation Comments POCT PH U (test code = 3254) 7 mg/dl 5-8 POCT U LEUK EST (test code = negative Negative - Negative 3263) POCT U NIT (test code = 3262) negative Negative - Negative POCT U PROT (test code = 3259) negative Negative - Negative POCT U GLU (test code = 3256) negative Negative - Negative POCT U KETONE (test code = 3258) negative Negative - Negative POCT U BLD (test code = 3257) negative Negative - Negative [facility] SPECIFIC [id number] 21:13:00 Test Item Value Reference Range Interpretation Comments POCT PH U (test code = 3254) n/a 5-8 POCT U LEUK EST (test code = n/a Negative - Negative 3263) POCT U NIT (test code = 3262) n/a Negative - Negative POCT U PROT (test code = 3259) negative Negative - Negative POCT U GLU (test code = 3256) negative Negative - Negative POCT U KETONE (test code = 3258) n/a Negative - Negative POCT U BLD (test code = 3257) n/a Negative - Negative [facility] [id number] 19:34:38 Test Item Value Reference Range Interpretation Comments WBC (test code = See_Comment [Automated 5684-2) message] The sy stem which generated this result transmitted reference range : 4.30 - 11.10 10*3/?L. The reference range was not used to interpret this result as normal/abnormal . RBC (test code = See_Comment [Automated 609-8) message] The sy stem which generated this result transmitted reference range : 3.93 - 5.25 10*6/?L. The reference range was not used to interpret this result as normal/abnormal . HGB (test code = 12.1 g/dL 11.6-15 718-7) HCT (test code = 36.0 % 35.7-45.2 4544-3) MCV (test code = 87.6 fL 80.6-95.5 787-2) MCH (test code = 29.4 pg 25.9-32.8 785-6) MCHC (test code = 33.6 g/dL 31.6-35.1 786-4) RDW-SD (test code = 41.1 fL 39-49.9 88794-6) RDW-CV (test code = 12.8 % 12-15.5 788-0) PLT (test code = See_Comment [Automated 137-3) message] The sy stem which generated this result transmitted reference range : 166 - 358 10*3/ ?L. The reference r sariah was not used to interpret this result as normal/abnormal . MPV (test code = 11.9 fL 9.5-12.9 71048-3) NRBC/100 WBC (test See_Comment [Automat ed code = 1126839086) message] The system which generated this result transmitted reference range : 0.0 - 10.0 /100 WBCs. The refer ence range was not u sed to interpret th is result as normal/abnormal . NRBC x10^3 (test code See_Comment [Auto mated = 0927322796) message] The s ystem which generated this result transmitted reference range : 10*3/?L. The reference range was not used to interpret this result as normal/abnormal . GRAN MAT (NEUT) % 75.7 % (test code = 770-8) IMM GRAN % (test code 1.00 % = 7697739423) LYMPH % (test code = 13.5 % 736-9) MONO % (test code = 6.7 % 5905-5) EOS % (test code = 2.6 % 713-8) BASO % (test code = 0.5 % 706-2) GRAN MAT x10^3(ANC) 7.84 10*3/uL 1.88-7.09 H (test code = 1892212681) IMM GRAN x10^3 (test 0.10 10*3/uL 0-0.06 H code = 8514982435) LYMPH x10^3 (test code 1.40 10*3/uL 1.32-3.29 = 731-0) MONO x10^3 (test code 0.69 10*3/uL 0.33-0.92 = 742-7) EOS x10^3 (test code = 0.27 10*3/uL 0.03-0.39 711-2) BASO x10^3 (test code 0.05 10*3/uL 0.01-0.07 = 704-7) Lab Interpretation Abnormal (test code = 54234-5) [facility] URINALYSIS W/O SPECIFIC [id number] 19:19:00 Test Item Value Reference Range Interpretation Comments POCT PH U (test code = 3254) n/a 5-8 POCT U LEUK EST (test code = n/a Negative - Negative 3263) POCT U NIT (test code = 3262) n/a Negative - Negative POCT U PROT (test code = 3259) negative Negative - Negative POCT U GLU (test code = 3256) negative Negative - Negative POCT U KETONE (test code = 3258) n/a Negative - Negative POCT U BLD (test code = 3257) n/a Negative - Negative [facility] SPECIFIC [id number] 20:53:00 Test Item Value Reference Range Interpretation Comments POCT PH U (test code = 3254) N/A 5-8 POCT U LEUK EST (test code = 3263) N/A Negative - Negative POCT U NIT (test code = 3262) N/A Negative - Negative POCT U PROT (test code = 3259) Neg Negative - Negative POCT U GLU (test code = 3256) Neg Negative - Negative POCT U KETONE (test code = 3258) N/A Negative - Negative POCT U BLD (test code = 3257) N/A Negative - Negative [facility] [id number] 21:32:00 Test Item Value Reference Range Interpretation Comments POCT PH U (test code = 3254) n/a 5-8 POCT U LEUK EST (test code = n/a Negative - Negative 3263) POCT U NIT (test code = 3262) n/a Negative - Negative POCT U PROT (test code = 3259) trace Negative - Negative POCT U GLU (test code = 3256) negative Negative - Negative POCT U KETONE (test code = 3258) n/a Negative - Negative POCT U BLD (test code = 3257) n/a Negative - Negative [facility] SPECIFIC [id number] 19:57:00 Test Item Value Reference Range Interpretation Comments POCT PH U (test code = 3254) n/a 5-8 POCT U LEUK EST (test code = 3263) n/a Negative - Negative POCT U NIT (test code = 3262) n/a Negative - Negative POCT U PROT (test code = 3259) trace Negative - Negative POCT U GLU (test code = 3256) normal Negative - Negative POCT U KETONE (test code = 3258) n/a Negative - Negative POCT U BLD (test code = 3257) n/ Negative - Negative [facility], [id number] 00:00:00 Test Item Value Reference Range Interpretation Comments HCG, QUANTITATIVE (test code = 16 MIU/ML 2506) HCG, [id number] 00:00:00 Test Item Value Reference Range Interpretation Comments HCG, QUANTITATIVE (test code = 16 MIU/ML 2506) HCG, [id number] 00:00:00 Test Item Value Reference Range Interpretation Comments HCG, QUANTITATIVE (test code = 16 MIU/ML 2506) HCG, [id number] 00:00:00 Test Item Value Reference Range Interpretation Comments HCG, QUANTITATIVE (test code = 104 MIU/ML 2506) HCG, [id number] 00:00:00 Test Item Value Reference Range Interpretation Comments HCG, QUANTITATIVE (test code = 104 MIU/ML 2506) HCG, [id number] 00:00:00 Test Item Value Reference Range Interpretation Comments HCG, QUANTITATIVE (test code = 104 MIU/ML 2506) VAGINAL PATHOGENS DNA PANEL [ADDED]2020-11-06 00:00:00 Test Item Value Reference Range Interpretation Comments ETHAN SPECIES (test code = ) NEGATIVE G. VAGINALIS (test code = 66436) POSITIVE T. VAGINALIS (test code = 62048) NEGATIVE VAGINAL PATHOGENS DNA PANEL [ADDED]2020-11-06 00:00:00 Test Item Value Reference Range Interpretation Comments ETHAN SPECIES (test code = ) NEGATIVE G. VAGINALIS (test code = 65368) POSITIVE T. VAGINALIS (test code = 60468) NEGATIVE PAP TEST, THINPREP, [id number] 00:00:00 Test Item Value Reference Range Interpretation Comments SOURCE: (test code = Cervical/Endocervical 8001) SLIDES: (test code = 1 8011) LMP: (test code = 8021) 08/27/2020 SPECIMEN ADEQUACY: (test (NOTE) code = 23613) INTERPRETATION: (test NILM/NO EPITH. code = 09665) ABNORMALITY;SEE BELOW MAC ARTIST: (test EDILSON Calderon (ASCP) code = 8101) QC TECHNOLOGIST: (test ALVARO A. LY,CT(ASCP) code = 8111) LOCATION: (test code = (NOTE) 82031) CPT: (test code = 8140) (NOTE) PAP TEST, THINPREP, [id number] 00:00:00 Test Item Value Reference Range Interpretation Comments SOURCE: (test code = Cervical/Endocervical 8001) SLIDES: (test code = 1 8011) LMP: (test code = 8021) 08/27/2020 SPECIMEN ADEQUACY: (test (NOTE) code = 51530) INTERPRETATION: (test NILM/NO EPITH. code = 49518) ABNORMALITY;SEE BELOW MAC ARTIST: (test Nata Gipson CT (ASCP) code = 8101) QC TECHNOLOGIST: (test ALVARO CALVIN,CT(ASCP) code = 8111) LOCATION: (test code = (NOTE) 26978) CPT: (test code = 8140) (NOTE) HPV HIGH RISK WITH GENOTYPE, [id number] 00:00:00 Test Item Value Reference Range Interpretation Comments HPV HIGH RISK INTERP (test code = POSITIVE 76458) HPV 16 (test code = 76583) NEGATIVE HPV 18 (test code = 49101) NEGATIVE HPV, HR, OTHER GENOTYPES (test code POSITIVE = 97027) HPV HIGH RISK WITH GENOTYPE, [id number] 00:00:00 Test Item Value Reference Range Interpretation Comments HPV HIGH RISK INTERP (test code = POSITIVE 06549) HPV 16 (test code = 42652) NEGATIVE HPV 18 (test code = 77350) NEGATIVE HPV, HR, OTHER GENOTYPES (test code POSITIVE = 82425) HEMOGLOBIN [id number] 00:00:00 Test Item Value Reference Range Interpretation Comments HEMOGLOBIN A1c (test TEST NOT PERFORMED % code = 75143) HEMOGLOBIN [id number] 00:00:00 Test Item Value Reference Range Interpretation Comments HEMOGLOBIN A1c (test TEST NOT PERFORMED % code = 94366) HEMOGLOBIN [id number] 00:00:00 Test Item Value Reference Range Interpretation Comments HEMOGLOBIN A1c (test TEST NOT PERFORMED % code = 01918) H. PYLORI (BREATH)2020-08-17 00:00:00 Test Item Value Reference Range Interpretation Comments H. PYLORI (BREATH) (test code = NEGATIVE 17402) H. PYLORI (BREATH)2020-08-17 00:00:00 Test Item Value Reference Range Interpretation Comments H. PYLORI (BREATH) (test code = NEGATIVE 06201) HIV AB/AG COMBO RFLX [id number] 00:00:00 Test Item Value Reference Range Interpretation Comments HIV 1/2 4TH GEN, RFLX CONF (test NON-REACTIVE code = 3514) HIV AB/AG COMBO RFLX [id number] 00:00:00 Test Item Value Reference Range Interpretation Comments HIV 1/2 4TH GEN, RFLX CONF (test NON-REACTIVE code = 3514) ACUTE HEPATITIS [id number] 00:00:00 Test Item Value Reference Range Interpretation Comments HEPATITIS A IgM (test code = NON-REACTIVE 32084) HEPATITIS B CORE IgM (test code NON-REACTIVE = 4644) HEPATITIS B SURF AG (test code = NON-REACTIVE 2739) HEPATITIS C ANTIBODY (test code NON-REACTIVE = 4675) INTERPRETATION HEPATITIS A: (NOTE) (test code = 2552) INTERPRETATION HEPATITIS B: (NOTE) (test code = 20638) INTERPRETATION HEPATITIS C: (NOTE) (test code = 92724) ACUTE HEPATITIS [id number] 00:00:00 Test Item Value Reference Range Interpretation Comments HEPATITIS A IgM (test code = NON-REACTIVE 28827) HEPATITIS B CORE IgM (test code NON-REACTIVE = 4644) HEPATITIS B SURF AG (test code = NON-REACTIVE 2739) HEPATITIS C ANTIBODY (test code NON-REACTIVE = 4675) INTERPRETATION HEPATITIS A: (NOTE) (test code = 2552) INTERPRETATION HEPATITIS B: (NOTE) (test code = 20755) INTERPRETATION HEPATITIS C: (NOTE) (test code = 29816) GC AND CHLAMYDIA, AMPLIFIED, [id number] 00:00:00 Test Item Value Reference Range Interpretation Comments GONORRHEA, NAAT (test code = 55766) NEGATIVE CHLAMYDIA, NAAT (test code = 37598) NEGATIVE VITAMIN D, 25 [id number] 00:00:00 Test Item Value Reference Range Interpretation Comments VITAMIN D, 25 OH (test code = 4958) 21 NG/ML VITAMIN D, 25 [id number] 00:00:00 Test Item Value Reference Range Interpretation Comments VITAMIN D, 25 OH (test code = 4958) 21 NG/ML GC AND CHLAMYDIA, AMPLIFIED, [id number] 00:00:00 Test Item Value Reference Range Interpretation Comments GONORRHEA, NAAT (test code = 45028) NEGATIVE CHLAMYDIA, NAAT (test code = 26815) NEGATIVE TRICHOMONAS, URINE, [id number] 00:00:00 Test Item Value Reference Range Interpretation Comments TRICHOMONAS, NAAT (test code = NEGATIVE 82520) TRICHOMONAS, URINE, [id number] 00:00:00 Test Item Value Reference Range Interpretation Comments TRICHOMONAS, NAAT (test code = NEGATIVE 61308) [id number] 00:00:00 Test Item Value Reference Range Interpretation Comments RPR RESULT (test code = NON-REACTIVE 3501) RPR TITER (test code = 3500) NOT INDIC. TITER [id number] 00:00:00 Test Item Value Reference Range Interpretation Comments RPR RESULT (test code = NON-REACTIVE 3501) RPR TITER (test code = 3500) NOT INDIC. TITER [id number] 00:00:00 Test Item Value Reference Range Interpretation Comments RPR RESULT (test code = NON-REACTIVE 3501) RPR TITER (test code = 3500) NOT INDIC. TITER [id number] 00:00:00 Test Item Value Reference Range Interpretation Comments TSH, THIRD GENERATION (test code 1.010 UIU/ML = 2821) [id number] 00:00:00 Test Item Value Reference Range Interpretation Comments TSH, THIRD GENERATION (test code 1.010 UIU/ML = 2821) [id number] 00:00:00 Test Item Value Reference Range Interpretation Comments TSH, THIRD GENERATION (test code 1.010 UIU/ML = 2821) COMPREHENSIVE METABOLIC [id number] 00:00:00 Test Item Value Reference Range Interpretation Comments GLUCOSE (test code = 2217) 85 MG/DL BUN (test code = 2208) 8 MG/DL CREATININE (test code = 2214) 0.99 MG/DL eGFR AMER. (test code 93 ML/MIN/1.73 = 96969) eGFR NON- AMER. (test 80 ML/MIN/1.73 code = 29134) CALC BUN/CREAT (test code = 8 RATIO 2235) SODIUM (test code = 2231) 139 MEQ/L POTASSIUM (test code = 2228) 4.8 MEQ/L CHLORIDE (test code = 2215) 102 MEQ/L CARBON DIOXIDE (test code = 22 MEQ/L 2206) CALCIUM (test code = 2209) 10.0 MG/DL PROTEIN, TOTAL (test code = 8.0 G/DL 222) ALBUMIN (test code = 2201) 5.0 G/DL CALC GLOBULIN (test code = 3.0 G/DL 2240) CALC A/G RATIO (test code = 1.7 RATIO 2234) BILIRUBIN, TOTAL (test code = 0.3 MG/DL 2206) ALKALINE PHOSPHATASE (test 81 U/L code = 2204) AST (test code = 2218) 22 U/L ALT (test code = 2219) 14 U/L COMPREHENSIVE METABOLIC [id number] 00:00:00 Test Item Value Reference Range Interpretation Comments GLUCOSE (test code = 2217) 85 MG/DL BUN (test code = 2208) 8 MG/DL CREATININE (test code = 2214) 0.99 MG/DL eGFR AMER. (test code 93 ML/MIN/1.73 = 24418) eGFR NON- AMER. (test 80 ML/MIN/1.73 code = 58854) CALC BUN/CREAT (test code = 8 RATIO 2235) SODIUM (test code = 2231) 139 MEQ/L POTASSIUM (test code = 2228) 4.8 MEQ/L CHLORIDE (test code = 2215) 102 MEQ/L CARBON DIOXIDE (test code = 22 MEQ/L 2206) CALCIUM (test code = 2209) 10.0 MG/DL PROTEIN, TOTAL (test code = 8.0 G/DL 2228) ALBUMIN (test code = 2201) 5.0 G/DL CALC GLOBULIN (test code = 3.0 G/DL 2240) CALC A/G RATIO (test code = 1.7 RATIO 2234) BILIRUBIN, TOTAL (test code = 0.3 MG/DL 2206) ALKALINE PHOSPHATASE (test 81 U/L code = 2204) AST (test code = 2218) 22 U/L ALT (test code = 2219) 14 U/L CBC W/AUTO [id number] 00:00:00 Test Item Value Reference Range Interpretation Comments WBC (test code = 1001) 6.3 K/UL RBC (test code = 1002) 5.17 M/UL HEMOGLOBIN (test code = 1003) 14.6 G/DL HEMATOCRIT (test code = 1004) 44.6 % MCV (test code = 1005) 86.3 fL MCH (test code = 1006) 28.2 PG MCHC (test code = 1007) 32.7 G/DL RDW (test code = 1038) 13.6 % NEUTROPHILS (test code = 1008) 53.7 % LYMPHOCYTES (test code = 1010) 35.5 % MONOCYTES (test code = 1011) 8.0 % EOSINOPHILS (test code = 1012) 1.7 % BASOPHILS (test code = 1013) 0.9 % IMMATURE GRANULOCYTES (test 0.2 % code = 1036) NUCLEATED RBCS (test code = 0.0 /100WBC'S 1065) PLATELET COUNT (test code = 310 K/UL 1015) ABSOLUTE NEUTROPHILS (test code 3.40 K/UL = 1066) ABSOLUTE LYMPHOCYTES (test code 2.25 K/UL = 1067) ABSOLUTE MONOCYTES (test code = 0.51 K/UL 1068) ABSOLUTE EOSINOPHILS (test code 0.11 K/UL = 1040) ABSOLUTE BASOPHILS (test code = 0.06 K/UL 1069) ABS IMMATURE GRANULOCYTES (test 0.01 K/UL code = 1020) ABS NUCLEATED RBCS (test code = 0.00 K/UL 89875) CBC W/AUTO [id number] 00:00:00 Test Item Value Reference Range Interpretation Comments WBC (test code = 1001) 6.3 K/UL RBC (test code = 1002) 5.17 M/UL HEMOGLOBIN (test code = 1003) 14.6 G/DL HEMATOCRIT (test code = 1004) 44.6 % MCV (test code = 1005) 86.3 fL MCH (test code = 1006) 28.2 PG MCHC (test code = 1007) 32.7 G/DL RDW (test code = 1038) 13.6 % NEUTROPHILS (test code = 1008) 53.7 % LYMPHOCYTES (test code = 1010) 35.5 % MONOCYTES (test code = 1011) 8.0 % EOSINOPHILS (test code = 1012) 1.7 % BASOPHILS (test code = 1013) 0.9 % IMMATURE GRANULOCYTES (test 0.2 % code = 1036) NUCLEATED RBCS (test code = 0.0 /100WBC'S 1065) PLATELET COUNT (test code = 310 K/UL 1015) ABSOLUTE NEUTROPHILS (test code 3.40 K/UL = 1066) ABSOLUTE LYMPHOCYTES (test code 2.25 K/UL = 1067) ABSOLUTE MONOCYTES (test code = 0.51 K/UL 1068) ABSOLUTE EOSINOPHILS (test code 0.11 K/UL = 1040) ABSOLUTE BASOPHILS (test code = 0.06 K/UL 1069) ABS IMMATURE GRANULOCYTES (test 0.01 K/UL code = 1020) ABS NUCLEATED RBCS (test code = 0.00 K/UL 72063) CBC W/AUTO [id number] 00:00:00 Test Item Value Reference Range Interpretation Comments WBC (test code = 1001) 6.3 K/UL RBC (test code = 1002) 5.17 M/UL HEMOGLOBIN (test code = 1003) 14.6 G/DL HEMATOCRIT (test code = 1004) 44.6 % MCV (test code = 1005) 86.3 fL MCH (test code = 1006) 28.2 PG MCHC (test code = 1007) 32.7 G/DL RDW (test code = 1038) 13.6 % NEUTROPHILS (test code = 1008) 53.7 % LYMPHOCYTES (test code = 1010) 35.5 % MONOCYTES (test code = 1011) 8.0 % EOSINOPHILS (test code = 1012) 1.7 % BASOPHILS (test code = 1013) 0.9 % IMMATURE GRANULOCYTES (test 0.2 % code = 1036) NUCLEATED RBCS (test code = 0.0 /100WBC'S 1065) PLATELET COUNT (test code = 310 K/UL 1015) ABSOLUTE NEUTROPHILS (test code 3.40 K/UL = 1066) ABSOLUTE LYMPHOCYTES (test code 2.25 K/UL = 1067) ABSOLUTE MONOCYTES (test code = 0.51 K/UL 1068) ABSOLUTE EOSINOPHILS (test code 0.11 K/UL = 1040) ABSOLUTE BASOPHILS (test code = 0.06 K/UL 1069) ABS IMMATURE GRANULOCYTES (test 0.01 K/UL code = 1020) ABS NUCLEATED RBCS (test code = 0.00 K/UL 66198) SARS-CoV-2 (COVID-19) by RT-PCR (HIGH RISK)2020-03-26 00:00:00 Test Item Value Reference Range Interpretation Comments SARS-CoV-2 INTERPRETATION (test POSITIVE code = 20831) SOURCE (test code = 52960) NOT SPECIFIED SARS-CoV-2 (COVID-19) by RT-PCR (HIGH RISK)2020-03-26 00:00:00 Test Item Value Reference Range Interpretation Comments SARS-CoV-2 INTERPRETATION (test POSITIVE code = 11363) SOURCE (test code = 49571) NOT SPECIFIED GC AND CHLAMYDIA, AMPLIFIED, [id number] 00:00:00 Test Item Value Reference Range Interpretation Comments GONORRHEA, TMA (test code = 62933) NEGATIVE CHLAMYDIA, TMA (test code = 93555) NEGATIVE GC AND CHLAMYDIA, AMPLIFIED, [id number] 00:00:00 Test Item Value Reference Range Interpretation Comments GONORRHEA, TMA (test code = 00297) NEGATIVE CHLAMYDIA, TMA (test code = 70995) NEGATIVE HIV AB/AG COMBO RFLX [id number] 00:00:00 Test Item Value Reference Range Interpretation Comments HIV 1/2 4TH GEN, RFLX CONF (test NON-REACTIVE code = 3514) HIV AB/AG COMBO RFLX [id number] 00:00:00 Test Item Value Reference Range Interpretation Comments HIV 1/2 4TH GEN, RFLX CONF (test NON-REACTIVE code = 3514) [id number] 00:00:00 Test Item Value Reference Range Interpretation Comments RPR RESULT (test code = NON-REACTIVE 3501) RPR TITER (test code = 3500) NOT INDIC. TITER [id number] 00:00:00 Test Item Value Reference Range Interpretation Comments RPR RESULT (test code = NON-REACTIVE 3501) RPR TITER (test code = 3500) NOT INDIC. TITER [id number] 00:00:00 Test Item Value Reference Range Interpretation Comments RPR RESULT (test code = NON-REACTIVE 3501) RPR TITER (test code = 3500) NOT INDIC. TITER HERPES SIMPLEX VIRUS IGG AND [id number] 00:00:00 Test Item Value Reference Range Interpretation Comments HERPES SIMPLEX 1 IgG (test code = 0.11 INDEX 36426) HERPES SIMPLEX 2 IgG (test code = 0.14 INDEX 95717) HERPES SIMPLEX IgM (test code = 0.24 INDEX 10294) HERPES SIMPLEX VIRUS IGG AND [id number] 00:00:00 Test Item Value Reference Range Interpretation Comments HERPES SIMPLEX 1 IgG (test code = 0.11 INDEX 18373) HERPES SIMPLEX 2 IgG (test code = 0.14 INDEX 81007) HERPES SIMPLEX IgM (test code = 0.24 INDEX 11715) HEPATITIS C REFLEX [id number] 00:00:00 Test Item Value Reference Range Interpretation Comments HEPATITIS C ANTIBODY (test code NON-REACTIVE = 4675) HCV INDEX (test code = 28747) 0.16 HEPATITIS C REFLEX [id number] 00:00:00 Test Item Value Reference Range Interpretation Comments HEPATITIS C ANTIBODY (test code NON-REACTIVE = 4675) HCV INDEX (test code = 36359) 0.16 CBC W/AUTO [id number] 00:00:00 Test Item Value Reference Range Interpretation Comments WBC (test code = 1001) 5.9 K/UL RBC (test code = 1002) 5.53 M/UL HEMOGLOBIN (test code = 1003) 14.1 G/DL HEMATOCRIT (test code = 1004) 45.0 % MCV (test code = 1005) 81.4 fL MCH (test code = 1006) 25.5 PG MCHC (test code = 1007) 31.3 G/DL RDW (test code = 1038) 13.3 % NEUTROPHILS (test code = 1008) 54.6 % LYMPHOCYTES (test code = 1010) 32.3 % MONOCYTES (test code = 1011) 8.5 % EOSINOPHILS (test code = 1012) 3.7 % BASOPHILS (test code = 1013) 0.9 % PLATELET COUNT (test code = 1015) 246 K/UL CBC W/AUTO [id number] 00:00:00 Test Item Value Reference Range Interpretation Comments WBC (test code = 1001) 5.9 K/UL RBC (test code = 1002) 5.53 M/UL HEMOGLOBIN (test code = 1003) 14.1 G/DL HEMATOCRIT (test code = 1004) 45.0 % MCV (test code = 1005) 81.4 fL MCH (test code = 1006) 25.5 PG MCHC (test code = 1007) 31.3 G/DL RDW (test code = 1038) 13.3 % NEUTROPHILS (test code = 1008) 54.6 % LYMPHOCYTES (test code = 1010) 32.3 % MONOCYTES (test code = 1011) 8.5 % EOSINOPHILS (test code = 1012) 3.7 % BASOPHILS (test code = 1013) 0.9 % PLATELET COUNT (test code = 1015) 246 K/UL CBC W/AUTO [id number] 00:00:00 Test Item Value Reference Range Interpretation Comments WBC (test code = 1001) 5.9 K/UL RBC (test code = 1002) 5.53 M/UL HEMOGLOBIN (test code = 1003) 14.1 G/DL HEMATOCRIT (test code = 1004) 45.0 % MCV (test code = 1005) 81.4 fL MCH (test code = 1006) 25.5 PG MCHC (test code = 1007) 31.3 G/DL RDW (test code = 1038) 13.3 % NEUTROPHILS (test code = 1008) 54.6 % LYMPHOCYTES (test code = 1010) 32.3 % MONOCYTES (test code = 1011) 8.5 % EOSINOPHILS (test code = 1012) 3.7 % BASOPHILS (test code = 1013) 0.9 % PLATELET COUNT (test code = 1015) 246 K/UL COMPREHENSIVE METABOLIC [id number] 00:00:00 Test Item Value Reference Range Interpretation Comments GLUCOSE (test code = 2217) 88 MG/DL BUN (test code = 2208) 10 MG/DL CREATININE (test code = 2214) 0.86 MG/DL eGFR AMER. (test code 113 ML/MIN/1.73 = 60213) eGFR NON- AMER. (test 97 ML/MIN/1.73 code = 37330) CALC BUN/CREAT (test code = 12 RATIO 2235) SODIUM (test code = 2231) 140 MEQ/L POTASSIUM (test code = 2228) 4.5 MEQ/L CHLORIDE (test code = 2215) 102 MEQ/L CARBON DIOXIDE (test code = 22 MEQ/L 2205) CALCIUM (test code = 2209) 10.2 MG/DL PROTEIN, TOTAL (test code = 8.1 G/DL 2228) ALBUMIN (test code = 2201) 5.1 G/DL CALC GLOBULIN (test code = 3.0 G/DL 224) CALC A/G RATIO (test code = 1.7 RATIO 2234) BILIRUBIN, TOTAL (test code = 0.5 MG/DL 2206) ALKALINE PHOSPHATASE (test 72 U/L code = 2204) AST (test code = 2218) 19 U/L ALT (test code = 2219) 12 U/L COMPREHENSIVE METABOLIC [id number] 00:00:00 Test Item Value Reference Range Interpretation Comments GLUCOSE (test code = 2217) 88 MG/DL BUN (test code = 2208) 10 MG/DL CREATININE (test code = 2214) 0.86 MG/DL eGFR AMER. (test code 113 ML/MIN/1.73 = 10657) eGFR NON- AMER. (test 97 ML/MIN/1.73 code = 98141) CALC BUN/CREAT (test code = 12 RATIO 2235) SODIUM (test code = 2231) 140 MEQ/L POTASSIUM (test code = 2228) 4.5 MEQ/L CHLORIDE (test code = 2215) 102 MEQ/L CARBON DIOXIDE (test code = 22 MEQ/L 2205) CALCIUM (test code = 2209) 10.2 MG/DL PROTEIN, TOTAL (test code = 8.1 G/DL 2228) ALBUMIN (test code = 2201) 5.1 G/DL CALC GLOBULIN (test code = 3.0 G/DL 2240) CALC A/G RATIO (test code = 1.7 RATIO 4) BILIRUBIN, TOTAL (test code = 0.5 MG/DL 2206) ALKALINE PHOSPHATASE (test 72 U/L code = 2204) AST (test code = 2218) 19 U/L ALT (test code = 2219) 12 U/L [id number] 00:00:00 Test Item Value Reference Range Interpretation Comments TSH, THIRD GENERATION (test code 1.430 UIU/ML = 2821) [id number] 00:00:00 Test Item Value Reference Range Interpretation Comments TSH, THIRD GENERATION (test code 1.430 UIU/ML = 2821) [id number] 00:00:00 Test Item Value Reference Range Interpretation Comments TSH, THIRD GENERATION (test code 1.430 UIU/ML = 2821) VITAMIN D, 25 [id number] 00:00:00 Test Item Value Reference Range Interpretation Comments VITAMIN D, 25 OH (test code = 4958) 13 NG/ML VITAMIN D, 25 [id number] 00:00:00 Test Item Value Reference Range Interpretation Comments VITAMIN D, 25 OH (test code = 4958) 13 NG/ML VITAMIN B 12 AND FOLIC [id number] 00:00:00 Test Item Value Reference Range Interpretation Comments VITAMIN B-12 (test code = 2840) 824 PG/ML FOLIC ACID (test code = 2695) 9.4 UG/L VITAMIN B 12 AND FOLIC [id number] 00:00:00 Test Item Value Reference Range Interpretation Comments VITAMIN B-12 (test code = 2840) 824 PG/ML FOLIC ACID (test code = 2695) 9.4 UG/L [id number] 02:05:00 Test Item Value Reference Range Interpretation Comments MCHC (test code = MCHC) 32.5 32.0-36.0 [id number] 02:05:00 Test Item Value Reference Range Interpretation Comments Platelet (test code = Platelet) 208 133-450 [facility] [id number] 02:05:00 Test Item Value Reference Range Interpretation Comments RDW (test code = RDW) 15.9 11.5-14.5 [facility] [id number] 02:05:00 Test Item Value Reference Range Interpretation Comments MPV (test code = MPV) 11.3 7.4-10.4 [facility] [id number] 02:05:00 Test Item Value Reference Range Interpretation Comments RBC (test code = RBC) 5.22 4.20-5.40 [id number] 02:05:00 Test Item Value Reference Range Interpretation Comments WBC (test code = WBC) 7.0 3.7-10.4 [facility] [id number] 02:05:00 Test Item Value Reference Range Interpretation Comments Hgb (test code = Hgb) 13.5 12.0-16.0 [id number] 02:05:00 Test Item Value Reference Range Interpretation Comments HIV. (test code = Negative *NA*(12/22/17 HIV.) 9:05 PM) [facility] [id number] 02:05:00 Test Item Value Reference Range Interpretation Comments Hep B Core IgM (test Negative *NA*(12/22/17 code = Hep B Core 9:05 PM) IgM) [id number] 02:05:00 Test Item Value Reference Range Interpretation Comments Hep Bs Ag (test code Negative *NA*(12/22/17 = Hep Bs Ag) 9:05 PM) [id number] 02:05:00 Test Item Value Reference Range Interpretation Comments Hep C Ab (test code = Negative *NA*(12/22/17 Hep C Ab) 9:05 PM) [facility]RzvsmycMOAEJDVCTX6030-93-33 02:05:00 Test Item Value Reference Range Interpretation Comments Hep A IgM (test code Negative *NA*(12/22/17 = Hep A IgM) 9:05 PM) [facility]2018-10-14 02:05:00 Test Item Value Reference Range Interpretation Comments Glucose Lvl (test code = Glucose Lvl) 77 70-99 [facility]2018-10-14 02:05:00 Test Item Value Reference Range Interpretation Comments Creatinine Lvl (test code = Creatinine 0.98 0.50-1.40 Lvl) [facility]2018-10-14 02:05:00 Test Item Value Reference Range Interpretation Comments Sodium Lvl (test code = Sodium Lvl) 139 135-145 [facility]2018-10-14 02:05:00 Test Item Value Reference Range Interpretation Comments BUN (test code = BUN) 8 7-22 [facility]2018-10-14 02:05:00 Test Item Value Reference Range Interpretation Comments Total Protein (test code = Total 8.4 6.4-8.4 Protein) [facility]2018-10-14 02:05:00 Test Item Value Reference Range Interpretation Comments Albumin Lvl (test code = Albumin Lvl) 4.3 3.5-5.0 [facility]2018-10-14 02:05:00 Test Item Value Reference Range Interpretation Comments Potassium Lvl (test code = Potassium 4.2 3.5-5.1 Lvl) [facility]2018-10-14 02:05:00 Test Item Value Reference Range Interpretation Comments Chloride Lvl (test code = Chloride Lvl) 110 95-109 [facility]2018-10-14 02:05:00 Test Item Value Reference Range Interpretation Comments CO2 (test code = CO2) 23 24-32 [facility]2018-10-14 02:05:00 Test Item Value Reference Range Interpretation Comments Calcium Lvl (test code = Calcium Lvl) 9.1 8.5-10.5 [facility]2018-10-14 02:05:00 Test Item Value Reference Range Interpretation Comments Bili Total (test code = Bili Total) 0.6 0.2-1.3 [facility]2018-10-14 02:05:00 Test Item Value Reference Range Interpretation Comments ALT (test code = ALT) 21 See_Comment [Auto mated message] The system which ge nerated this result transmit bob reference range : <=65. The reference range was not used to interpr et this result as dominique l/abnormal. [facility]2018-10-14 02:05:00 Test Item Value Reference Range Interpretation Comments AST (test code = AST) 23 See_Comment [Auto mated message] The system which ge nerated this result transmit bob reference range : <=37. The reference range was not used to interpr et this result as dominique l/abnormal. [facility]2018-10-14 02:05:00 Test Item Value Reference Range Interpretation Comments Alk Phos (test code = Alk Phos) 74 39-136 [facility]2018-10-14 02:05:00 Test Item Value Reference Range Interpretation Comments eGFR (test code = eGFR) 96 [facility]2018-10-14 02:05:00 Test Item Value Reference Range Interpretation Comments AGAP (test code = AGAP) 10.2 10.0-20.0 [facility]2018-10-14 02:05:00 Test Item Value Reference Range Interpretation Comments B/C Ratio (test code = B/C Ratio) 8 1 6-25 [facility]2018-10-14 02:05:00 Test Item Value Reference Range Interpretation Comments Globulin (test code = Globulin) 4.1 2.7-4.2 [facility]2018-10-14 02:05:00 Test Item Value Reference Range Interpretation Comments A/G Ratio (test code = A/G Ratio) 1.0 1 0.7-1.6 [place] [id number] 02:05:00 Test Item Value Reference Range Interpretation Comments Neutrophils # (test code = Neutrophils 4.0 1.5-8.1 #) [facility] HospitalUzyjixzLWAFGTEKZP1066-59-14 02:05:00 Test Item Value Reference Range Interpretation Comments Monocytes # (test code 0.5 See_Comment [Aut omated message] The = Monocytes #) system which generated this result tra nsmitted reference range : <=0.8. The reference r sariah was not used to int erpret this result as normal/abnormal . [facility] HospitalJkzncuaXUEVAEQVXN1053-79-31 02:05:00 Test Item Value Reference Range Interpretation Comments Lymphocytes # (test code = Lymphocytes 2.3 1.0-5.5 #) [facility] HospitalExezsstRVCZMZDTWR3146-60-72 02:05:00 Test Item Value Reference Range Interpretation Comments Eosinophils # (test code 0.1 See_Comment [A utomated message] The = Eosinophils #) system wh h generated this result tra nsmitted reference range : <=0.5. The reference r sariah was not used to int erpret this result as normal/abnormal . [facility] HospitalTpkanfyHJUBUQUKCU2519-86-42 02:05:00 Test Item Value Reference Range Interpretation Comments Eosinophils (test code = 2.0 See_Comment [A utomated message] The Eosinophils) system which ge nerated this result tra nsmitted reference range : <=4.0. The reference r sariah was not used to int erpret this result as normal/abnormal . [facility] HospitalTyerdnwQUQMYCOLNF1956-88-60 02:05:00 Test Item Value Reference Range Interpretation Comments Basophils (test code = 0.7 See_Comment [Aut omated message] The Basophils) system which ge nerated this result tra nsmitted reference range : <=1.0. The reference r sariah was not used to int erpret this result as normal/abnormal . [facility] HospitalNinkmofQGLTTVAUFG7635-90-97 02:05:00 Test Item Value Reference Range Interpretation Comments Segs (test code = Segs) 57.2 45.0-75.0 [facility] HospitalUwdtcohLMSSRAYVSG5186-90-90 02:05:00 Test Item Value Reference Range Interpretation Comments Lymphocytes (test code = Lymphocytes) 32.4 20.0-40.0 [facility] HospitalMusqpfnGBKXVGEWKP3725-45-75 02:05:00 Test Item Value Reference Range Interpretation Comments Monocytes (test code = Monocytes) 7.7 2.0-12.0 [facility] CenterSejbrnyJCHFJASLHQ5502-32-81 02:05:00 Test Item Value Reference Range Interpretation Comments Hct (test code = Hct) 41.7 36.0-48.0 [facility]SiqodemVRFQCTSJSF7781-05-07 02:05:00 Test Item Value Reference Range Interpretation Comments MCH (test code = MCH) 25.9 pg 27.0-31.0 [facility] CenterIaptuxcFWJHAAQAQB6177-83-52 02:05:00 Test Item Value Reference Range Interpretation Comments MCV (test code = MCV) 79.8 80.0-98.0 [facility] CenterNhtvatbZUVKQBAZJA7209-63-29 02:05:00 Test Item Value Reference Range Interpretation Comments MCHC (test code = MCHC) 32.5 32.0-36.0 [facility] HospitalWiypouaGGJVRXBSSE8921-12-12 02:05:00 Test Item Value Reference Range Interpretation Comments Platelet (test code = Platelet) 208 133-450 [facility] HospitalFawbtgyDZCIHLCQTC8838-86-26 02:05:00 Test Item Value Reference Range Interpretation Comments RDW (test code = RDW) 15.9 11.5-14.5 [facility] CenterKtcztibAREJKMBVYD3840-91-10 02:05:00 Test Item Value Reference Range Interpretation Comments MPV (test code = MPV) 11.3 7.4-10.4 [facility] HospitalFdwycefSTEHIRKUQX7157-56-30 02:05:00 Test Item Value Reference Range Interpretation Comments RBC (test code = RBC) 5.22 4.20-5.40 [facility] CenterLradsoxVJBQSDNXLL2690-08-14 02:05:00 Test Item Value Reference Range Interpretation Comments WBC (test code = WBC) 7.0 3.7-10.4 [facility] HospitalRhgfohnKDUDKRMZSZ9430-30-12 02:05:00 Test Item Value Reference Range Interpretation Comments Hgb (test code = Hgb) 13.5 12.0-16.0 [facility] CenterDsplzqdRAIMAYKUOM3489-08-09 02:05:00 Test Item Value Reference Range Interpretation Comments HIV. (test code = Negative *NA*(12/22/17 HIV.) 9:05 PM) [facility]2018-10-14 02:05:00 Test Item Value Reference Range Interpretation Comments Glucose Lvl (test code = Glucose Lvl) 77 70-99 [facility]2018-10-14 02:05:00 Test Item Value Reference Range Interpretation Comments Creatinine Lvl (test code = Creatinine 0.98 0.50-1.40 Lvl) [facility]2018-10-14 02:05:00 Test Item Value Reference Range Interpretation Comments Sodium Lvl (test code = Sodium Lvl) 139 135-145 [facility]2018-10-14 02:05:00 Test Item Value Reference Range Interpretation Comments BUN (test code = BUN) 8 7-22 [facility]2018-10-14 02:05:00 Test Item Value Reference Range Interpretation Comments Total Protein (test code = Total 8.4 6.4-8.4 Protein) [facility]2018-10-14 02:05:00 Test Item Value Reference Range Interpretation Comments Albumin Lvl (test code = Albumin Lvl) 4.3 3.5-5.0 [facility]2018-10-14 02:05:00 Test Item Value Reference Range Interpretation Comments Potassium Lvl (test code = Potassium 4.2 3.5-5.1 Lvl) [facility]2018-10-14 02:05:00 Test Item Value Reference Range Interpretation Comments Chloride Lvl (test code = Chloride Lvl) 110 95-109 [facility] CenterAhinchaWHEJUCJXWB5847-02-94 02:05:00 Test Item Value Reference Range Interpretation Comments Hep B Core IgM (test Negative *NA*(12/22/17 code = Hep B Core 9:05 PM) IgM) [facility]2018-10-14 02:05:00 Test Item Value Reference Range Interpretation Comments CO2 (test code = CO2) 23 24-32 [facility]2018-10-14 02:05:00 Test Item Value Reference Range Interpretation Comments Calcium Lvl (test code = Calcium Lvl) 9.1 8.5-10.5 [facility]2018-10-14 02:05:00 Test Item Value Reference Range Interpretation Comments Bili Total (test code = Bili Total) 0.6 0.2-1.3 [facility]2018-10-14 02:05:00 Test Item Value Reference Range Interpretation Comments ALT (test code = ALT) 21 See_Comment [Auto mated message] The system which ge nerated this result transmit bob reference range : <=65. The reference range was not used to interpr et this result as dominique l/abnormal. [facility]2018-10-14 02:05:00 Test Item Value Reference Range Interpretation Comments AST (test code = AST) 23 See_Comment [Auto mated message] The system which ge nerated this result transmit bob reference range : <=37. The reference range was not used to interpr et this result as dominique l/abnormal. [facility]2018-10-14 02:05:00 Test Item Value Reference Range Interpretation Comments Alk Phos (test code = Alk Phos) 74 39-136 [facility]2018-10-14 02:05:00 Test Item Value Reference Range Interpretation Comments eGFR (test code = eGFR) 96 [facility]2018-10-14 02:05:00 Test Item Value Reference Range Interpretation Comments AGAP (test code = AGAP) 10.2 10.0-20.0 [facility]2018-10-14 02:05:00 Test Item Value Reference Range Interpretation Comments B/C Ratio (test code = B/C Ratio) 8 1 6-25 [facility]2018-10-14 02:05:00 Test Item Value Reference Range Interpretation Comments Globulin (test code = Globulin) 4.1 2.7-4.2 [facility] CenterXbmjqczWOMXGWTATJ5484-21-20 02:05:00 Test Item Value Reference Range Interpretation Comments Hep Bs Ag (test code Negative *NA*(12/22/17 = Hep Bs Ag) 9:05 PM) [facility]2018-10-14 02:05:00 Test Item Value Reference Range Interpretation Comments A/G Ratio (test code = A/G Ratio) 1.0 1 0.7-1.6 [facility]OabhrqpBWFFSXTNQJ9030-48-53 02:05:00 Test Item Value Reference Range Interpretation Comments Neutrophils # (test code = Neutrophils 4.0 1.5-8.1 #) [facility] HospitalYidqxmmLCFTNJVHTI0661-10-67 02:05:00 Test Item Value Reference Range Interpretation Comments Monocytes # (test code 0.5 See_Comment [Aut omated message] The = Monocytes #) system which generated this result tra nsmitted reference range : <=0.8. The reference r sariah was not used to int erpret this result as normal/abnormal . [facility] HospitalHvirqwoIGZAJQDQWW3416-36-30 02:05:00 Test Item Value Reference Range Interpretation Comments Lymphocytes # (test code = Lymphocytes 2.3 1.0-5.5 #) [facility] HospitalXtjtwsxJSVPQQWRSQ9153-40-95 02:05:00 Test Item Value Reference Range Interpretation Comments Eosinophils # (test code 0.1 See_Comment [A utomated message] The = Eosinophils #) system whic h generated this result tra nsmitted reference range : <=0.5. The reference r sariah was not used to int erpret this result as normal/abnormal . [facility] HospitalMtbouuxYUNACQEFHK9796-70-24 02:05:00 Test Item Value Reference Range Interpretation Comments Eosinophils (test code = 2.0 See_Comment [A utomated message] The Eosinophils) system which ge nerated this result tra nsmitted reference range : <=4.0. The reference r sariah was not used to int erpret this result as normal/abnormal . [facility] HospitalFfomkycCKIFGOIHBH3295-82-54 02:05:00 Test Item Value Reference Range Interpretation Comments Basophils (test code = 0.7 See_Comment [Aut omated message] The Basophils) system which ge nerated this result tra nsmitted reference range : <=1.0. The reference r sariah was not used to int erpret this result as normal/abnormal . [facility] HospitalSfdkcdeKSQYOMPRJY2158-73-25 02:05:00 Test Item Value Reference Range Interpretation Comments Segs (test code = Segs) 57.2 45.0-75.0 [facility] HospitalCcirvfuBGFIOEZQPY4381-14-49 02:05:00 Test Item Value Reference Range Interpretation Comments Lymphocytes (test code = Lymphocytes) 32.4 20.0-40.0 [facility] HospitalBltxltaUWGXRXLSGD7365-70-98 02:05:00 Test Item Value Reference Range Interpretation Comments Monocytes (test code = Monocytes) 7.7 2.0-12.0 [facility]Jgou[facility]auIRDTAQGHPH3683-14-83 02:05:00 Test Item Value Reference Range Interpretation Comments Hep C Ab (test code = Negative *NA*(12/22/17 Hep C Ab) 9:05 PM) [facility] HospitalXxldcqyKTNBHARZIO8744-13-12 02:05:00 Test Item Value Reference Range Interpretation Comments Hct (test code = Hct) 41.7 36.0-48.0 [facility] HospitalIcbgmyiJXIUCDVQPP4827-39-33 02:05:00 Test Item Value Reference Range Interpretation Comments MCH (test code = MCH) 25.9 pg 27.0-31.0 [facility] HospitalHypllloEOJVXDXBEC3774-05-57 02:05:00 Test Item Value Reference Range Interpretation Comments MCV (test code = MCV) 79.8 80.0-98.0 [facility] HospitalFnadpdkGZHAOVCVNB2123-16-80 02:05:00 Test Item Value Reference Range Interpretation Comments MCHC (test code = MCHC) 32.5 32.0-36.0 [facility] HospitalSniowmuLUQNGIPXBH0861-67-00 02:05:00 Test Item Value Reference Range Interpretation Comments Platelet (test code = Platelet) 208 133-450 [facility] HospitalAwxybuoYXGRKTAKMP3587-58-53 02:05:00 Test Item Value Reference Range Interpretation Comments RDW (test code = RDW) 15.9 11.5-14.5 [facility] HospitalGiolxjlYZRHAODYXZ7193-56-10 02:05:00 Test Item Value Reference Range Interpretation Comments MPV (test code = MPV) 11.3 7.4-10.4 [facility] HospitalVcqrryhNKMHMJCEGY4718-52-14 02:05:00 Test Item Value Reference Range Interpretation Comments RBC (test code = RBC) 5.22 4.20-5.40 [facility] HospitalWjucdukQAVBKOZWQV0779-15-47 02:05:00 Test Item Value Reference Range Interpretation Comments WBC (test code = WBC) 7.0 3.7-10.4 [facility] HospitalDwpynddMNGWLUAZPT5420-25-24 02:05:00 Test Item Value Reference Range Interpretation Comments Hgb (test code = Hgb) 13.5 12.0-16.0 [facility]WgzfqdrHRGRJWJNWL0056-99-33 02:05:00 Test Item Value Reference Range Interpretation Comments Hep A IgM (test code Negative *NA*(12/22/17 = Hep A IgM) 9:05 PM) [facility] CenterOvuhugiCPSLTKYHIB1684-12-58 02:05:00 Test Item Value Reference Range Interpretation Comments HIV. (test code = Negative *NA*(12/22/17 HIV.) 9:05 PM) [facility] CenterMveqtssSWIVALBYJJ9347-51-05 02:05:00 Test Item Value Reference Range Interpretation Comments Hep B Core IgM (test Negative *NA*(12/22/17 code = Hep B Core 9:05 PM) IgM) [facility] CenterQrqrsbqHVDGIPRQRR1788-52-16 02:05:00 Test Item Value Reference Range Interpretation Comments Hep Bs Ag (test code Negative *NA*(12/22/17 = Hep Bs Ag) 9:05 PM) [facility] CenterBlmouifHVOJMITRMF9981-90-29 02:05:00 Test Item Value Reference Range Interpretation Comments Hep C Ab (test code = Negative *NA*(12/22/17 Hep C Ab) 9:05 PM) [facility] CenterGqwpfqwEWKOWOUVCN6730-35-80 02:05:00 Test Item Value Reference Range Interpretation Comments Hep A IgM (test code Negative *NA*(12/22/17 = Hep A IgM) 9:05 PM) [facility]2018-10-14 02:05:00 Test Item Value Reference Range Interpretation Comments Glucose Lvl (test code = Glucose Lvl) 77 70-99 [facility]2018-10-14 02:05:00 Test Item Value Reference Range Interpretation Comments Creatinine Lvl (test code = Creatinine 0.98 0.50-1.40 Lvl) [facility]2018-10-14 02:05:00 Test Item Value Reference Range Interpretation Comments Sodium Lvl (test code = Sodium Lvl) 139 135-145 [facility]2018-10-14 02:05:00 Test Item Value Reference Range Interpretation Comments BUN (test code = BUN) 8 7-22 [facility]2018-10-14 02:05:00 Test Item Value Reference Range Interpretation Comments Total Protein (test code = Total 8.4 6.4-8.4 Protein) [facility]2018-10-14 02:05:00 Test Item Value Reference Range Interpretation Comments Albumin Lvl (test code = Albumin Lvl) 4.3 3.5-5.0 [facility]2018-10-14 02:05:00 Test Item Value Reference Range Interpretation Comments Potassium Lvl (test code = Potassium 4.2 3.5-5.1 Lvl) [facility]2018-10-14 02:05:00 Test Item Value Reference Range Interpretation Comments Chloride Lvl (test code = Chloride Lvl) 110 95-109 [facility]2018-10-14 02:05:00 Test Item Value Reference Range Interpretation Comments CO2 (test code = CO2) 23 24-32 [facility]2018-10-14 02:05:00 Test Item Value Reference Range Interpretation Comments Calcium Lvl (test code = Calcium Lvl) 9.1 8.5-10.5 [facility]2018-10-14 02:05:00 Test Item Value Reference Range Interpretation Comments Bili Total (test code = Bili Total) 0.6 0.2-1.3 [facility]2018-10-14 02:05:00 Test Item Value Reference Range Interpretation Comments ALT (test code = ALT) 21 See_Comment [Auto mated message] The system which ge nerated this result transmit bob reference range : <=65. The reference range was not used to interpr et this result as dominique l/abnormal. [facility]2018-10-14 02:05:00 Test Item Value Reference Range Interpretation Comments AST (test code = AST) 23 See_Comment [Auto mated message] The system which ge nerated this result transmit bob reference range : <=37. The reference range was not used to interpr et this result as dominique l/abnormal. [facility]2018-10-14 02:05:00 Test Item Value Reference Range Interpretation Comments Alk Phos (test code = Alk Phos) 74 39-136 [facility]2018-10-14 02:05:00 Test Item Value Reference Range Interpretation Comments eGFR (test code = eGFR) 96 [facility]2018-10-14 02:05:00 Test Item Value Reference Range Interpretation Comments AGAP (test code = AGAP) 10.2 10.0-20.0 [facility]2018-10-14 02:05:00 Test Item Value Reference Range Interpretation Comments B/C Ratio (test code = B/C Ratio) 8 1 6-25 [facility]2018-10-14 02:05:00 Test Item Value Reference Range Interpretation Comments Globulin (test code = Globulin) 4.1 2.7-4.2 [facility]2018-10-14 02:05:00 Test Item Value Reference Range Interpretation Comments A/G Ratio (test code = A/G Ratio) 1.0 1 0.7-1.6 [facility] HospitalKpvwytnQNAQMEPUTI7281-32-51 02:05:00 Test Item Value Reference Range Interpretation Comments Neutrophils # (test code = Neutrophils 4.0 1.5-8.1 #) [facility] HospitalTuxexshSMPGIPSCKP5954-32-12 02:05:00 Test Item Value Reference Range Interpretation Comments Monocytes # (test code 0.5 See_Comment [Aut omated message] The = Monocytes #) system which generated this result tra nsmitted reference range : <=0.8. The reference r sariah was not used to int erpret this result as normal/abnormal . [facility] HospitalEzzsufvOEJHRAWJHW7485-82-62 02:05:00 Test Item Value Reference Range Interpretation Comments Lymphocytes # (test code = Lymphocytes 2.3 1.0-5.5 #) [facility] HospitalEqnodzxOHENFGDHBN0893-26-01 02:05:00 Test Item Value Reference Range Interpretation Comments Eosinophils # (test code 0.1 See_Comment [A utomated message] The = Eosinophils #) system whic h generated this result tra nsmitted reference range : <=0.5. The reference r sariah was not used to int erpret this result as normal/abnormal . [facility] HospitalFfyxyonVLRWVYIRMC1397-22-47 02:05:00 Test Item Value Reference Range Interpretation Comments Eosinophils (test code = 2.0 See_Comment [A utomated message] The Eosinophils) system which ge nerated this result tra nsmitted reference range : <=4.0. The reference r sariah was not used to int erpret this result as normal/abnormal . [facility] HospitalQwquriuGUEEGCASBV4901-47-18 02:05:00 Test Item Value Reference Range Interpretation Comments Basophils (test code = 0.7 See_Comment [Aut omated message] The Basophils) system which ge nerated this result tra nsmitted reference range : <=1.0. The reference r sariah was not used to int erpret this result as normal/abnormal . [facility] HospitalGgbhlmdNOTLKKATMI5176-37-25 02:05:00 Test Item Value Reference Range Interpretation Comments Segs (test code = Segs) 57.2 45.0-75.0 [facility] HospitalWbgpslrGVCEMTWZHE8619-55-40 02:05:00 Test Item Value Reference Range Interpretation Comments Lymphocytes (test code = Lymphocytes) 32.4 20.0-40.0 [facility] HospitalCwswjetDBYPZXXZSL5148-68-71 02:05:00 Test Item Value Reference Range Interpretation Comments Monocytes (test code = Monocytes) 7.7 2.0-12.0 [facility] HospitalMjzrkpwOJUYBYQIPT1687-34-14 02:05:00 Test Item Value Reference Range Interpretation Comments Hct (test code = Hct) 41.7 36.0-48.0 [facility] HospitalOccehwkDPAVWNWRQX6013-31-43 02:05:00 Test Item Value Reference Range Interpretation Comments MCH (test code = MCH) 25.9 pg 27.0-31.0 [facility] HospitalYziujjzVRURPRPPBN2511-30-87 02:05:00 Test Item Value Reference Range Interpretation Comments MCV (test code = MCV) 79.8 80.0-98.0 [facility] HospitalQzendolXXEJDAFEPA5481-10-44 02:05:00 Test Item Value Reference Range Interpretation Comments MCHC (test code = MCHC) 32.5 32.0-36.0 [facility] HospitalWlmnypuYXWKTGIPUM9705-32-34 02:05:00 Test Item Value Reference Range Interpretation Comments Platelet (test code = Platelet) 208 133-450 [facility] HospitalNkvwumfPNRFZYMPKM8952-42-21 02:05:00 Test Item Value Reference Range Interpretation Comments RDW (test code = RDW) 15.9 11.5-14.5 [facility] HospitalSllkencRUFFOPEFHX5933-32-39 02:05:00 Test Item Value Reference Range Interpretation Comments MPV (test code = MPV) 11.3 7.4-10.4 [facility] HospitalDqicvdcGWMMFAXXDF1565-36-60 02:05:00 Test Item Value Reference Range Interpretation Comments RBC (test code = RBC) 5.22 4.20-5.40 [facility] HospitalOtmewqoLPDWPXQNKC6178-88-11 02:05:00 Test Item Value Reference Range Interpretation Comments WBC (test code = WBC) 7.0 3.7-10.4 [facility] HospitalKprilywUQQIIWOGQK5080-11-89 02:05:00 Test Item Value Reference Range Interpretation Comments Hgb (test code = Hgb) 13.5 12.0-16.0 [facility]ffRNAJXPMXVQ1136-73-[facility] 02:05:00 Test Item Value Reference Range Interpretation Comments HIV. (test code = Negative *NA*(12/22/17 HIV.) 9:05 PM) [facility]CodbyhuLRHKANKVKQ4057-93-30 02:05:00 Test Item Value Reference Range Interpretation Comments Hep B Core IgM (test Negative *NA*(12/22/17 code = Hep B Core 9:05 PM) IgM) [facility] CenterCnfboiyMXYNEUMWSH5411-23-03 02:05:00 Test Item Value Reference Range Interpretation Comments Hep Bs Ag (test code Negative *NA*(12/22/17 = Hep Bs Ag) 9:05 PM) [facility] CenterWbrziarFZHISHRYVD7064-93-40 02:05:00 Test Item Value Reference Range Interpretation Comments Hep C Ab (test code = Negative *NA*(12/22/17 Hep C Ab) 9:05 PM) [facility] CenterSwqnwxrYVCSSFSBFF5007-15-28 02:05:00 Test Item Value Reference Range Interpretation Comments Hep A IgM (test code Negative *NA*(12/22/17 = Hep A IgM) 9:05 PM) [facility]2018-10-14 02:05:00 Test Item Value Reference Range Interpretation Comments Glucose Lvl (test code = Glucose Lvl) 77 70-99 [facility]2018-10-14 02:05:00 Test Item Value Reference Range Interpretation Comments Creatinine Lvl (test code = Creatinine 0.98 0.50-1.40 Lvl) [facility]2018-10-14 02:05:00 Test Item Value Reference Range Interpretation Comments Sodium Lvl (test code = Sodium Lvl) 139 135-145 [facility]2018-10-14 02:05:00 Test Item Value Reference Range Interpretation Comments BUN (test code = BUN) 8 7-22 [facility]2018-10-14 02:05:00 Test Item Value Reference Range Interpretation Comments Total Protein (test code = Total 8.4 6.4-8.4 Protein) [facility]2018-10-14 02:05:00 Test Item Value Reference Range Interpretation Comments Albumin Lvl (test code = Albumin Lvl) 4.3 3.5-5.0 [facility]2018-10-14 02:05:00 Test Item Value Reference Range Interpretation Comments Potassium Lvl (test code = Potassium 4.2 3.5-5.1 Lvl) [facility]2018-10-14 02:05:00 Test Item Value Reference Range Interpretation Comments Chloride Lvl (test code = Chloride Lvl) 110 95-109 [facility]2018-10-14 02:05:00 Test Item Value Reference Range Interpretation Comments CO2 (test code = CO2) 23 24-32 [facility]2018-10-14 02:05:00 Test Item Value Reference Range Interpretation Comments Calcium Lvl (test code = Calcium Lvl) 9.1 8.5-10.5 [facility]2018-10-14 02:05:00 Test Item Value Reference Range Interpretation Comments Bili Total (test code = Bili Total) 0.6 0.2-1.3 [facility]2018-10-14 02:05:00 Test Item Value Reference Range Interpretation Comments ALT (test code = ALT) 21 See_Comment [Auto mated message] The system which ge nerated this result transmit bob reference range : <=65. The reference range was not used to interpr et this result as dominique l/abnormal. [facility]2018-10-14 02:05:00 Test Item Value Reference Range Interpretation Comments AST (test code = AST) 23 See_Comment [Auto mated message] The system which ge nerated this result transmit bob reference range : <=37. The reference range was not used to interpr et this result as dominique l/abnormal. [facility]2018-10-14 02:05:00 Test Item Value Reference Range Interpretation Comments Alk Phos (test code = Alk Phos) 74 39-136 [facility]2018-10-14 02:05:00 Test Item Value Reference Range Interpretation Comments eGFR (test code = eGFR) 96 [facility]2018-10-14 02:05:00 Test Item Value Reference Range Interpretation Comments AGAP (test code = AGAP) 10.2 10.0-20.0 [facility]2018-10-14 02:05:00 Test Item Value Reference Range Interpretation Comments B/C Ratio (test code = B/C Ratio) 8 1 6-25 [facility]2018-10-14 02:05:00 Test Item Value Reference Range Interpretation Comments Globulin (test code = Globulin) 4.1 2.7-4.2 [place] 263868-10-14 02:05:00 Test Item Value Reference Range Interpretation Comments A/G Ratio (test code = A/G Ratio) 1.0 1 0.7-1.6 [facility] HospitalPdqhuvlADTHZWJLLL7396-56-12 02:05:00 Test Item Value Reference Range Interpretation Comments Neutrophils # (test code = Neutrophils 4.0 1.5-8.1 #) [facility] HospitalJznsogpQROPTJXXRW6169-65-34 02:05:00 Test Item Value Reference Range Interpretation Comments Monocytes # (test code 0.5 See_Comment [Aut omated message] The = Monocytes #) system which generated this result tra nsmitted reference range : <=0.8. The reference r sariah was not used to int erpret this result as normal/abnormal . [facility] HospitalXmwzpawLLAOEJXCZJ8950-53-21 02:05:00 Test Item Value Reference Range Interpretation Comments Lymphocytes # (test code = Lymphocytes 2.3 1.0-5.5 #) [facility] HospitalLtcvfbdLVLHGFVMCN8498-77-54 02:05:00 Test Item Value Reference Range Interpretation Comments Eosinophils # (test code 0.1 See_Comment [A utomated message] The = Eosinophils #) system whic h generated this result tra nsmitted reference range : <=0.5. The reference r sariah was not used to int erpret this result as normal/abnormal . [facility] HospitalUwlgxzdKNEJYRRHGR9731-25-26 02:05:00 Test Item Value Reference Range Interpretation Comments Eosinophils (test code = 2.0 See_Comment [A utomated message] The Eosinophils) system which ge nerated this result tra nsmitted reference range : <=4.0. The reference r sariah was not used to int erpret this result as normal/abnormal . [facility] HospitalSmjgupdVJVSJPCTKZ5434-81-24 02:05:00 Test Item Value Reference Range Interpretation Comments Basophils (test code = 0.7 See_Comment [Aut omated message] The Basophils) system which ge nerated this result tra nsmitted reference range : <=1.0. The reference r sariah was not used to int erpret this result as normal/abnormal . [facility] HospitalQsgtvheHIWVTWBBQL5054-75-97 02:05:00 Test Item Value Reference Range Interpretation Comments Segs (test code = Segs) 57.2 45.0-75.0 [facility] HospitalEicdkokHBOWDLYKBN4535-69-42 02:05:00 Test Item Value Reference Range Interpretation Comments Lymphocytes (test code = Lymphocytes) 32.4 20.0-40.0 [facility] HospitalQmmbdrcADKEBBSMWW3262-27-87 02:05:00 Test Item Value Reference Range Interpretation Comments Monocytes (test code = Monocytes) 7.7 2.0-12.0 [facility] HospitalWrrmwtkAZLWZFWYCD8453-80-41 02:05:00 Test Item Value Reference Range Interpretation Comments Hct (test code = Hct) 41.7 36.0-48.0 [facility] HospitalWcmymxyLTONEGKMEM4497-58-69 02:05:00 Test Item Value Reference Range Interpretation Comments MCH (test code = MCH) 25.9 pg 27.0-31.0 [facility] HospitalSnjrjadROUIPMXTGE5772-31-83 02:05:00 Test Item Value Reference Range Interpretation Comments MCV (test code = MCV) 79.8 80.0-98.0 [facility] HospitalCrujseqMEQNVDHVOH8856-29-63 02:05:00 Test Item Value Reference Range Interpretation Comments MCHC (test code = MCHC) 32.5 32.0-36.0 [facility] HospitalOfdoomkWZSGQCAUHZ3923-16-30 02:05:00 Test Item Value Reference Range Interpretation Comments Platelet (test code = Platelet) 208 133-450 [facility] HospitalPhcthwoUCACNYTVBF3195-05-85 02:05:00 Test Item Value Reference Range Interpretation Comments RDW (test code = RDW) 15.9 11.5-14.5 [facility] HospitalJfmtiydCNHTSWNSEJ4021-04-62 02:05:00 Test Item Value Reference Range Interpretation Comments MPV (test code = MPV) 11.3 7.4-10.4 [facility] HospitalKgyhdrrYTBHMVCQSY7362-71-48 02:05:00 Test Item Value Reference Range Interpretation Comments RBC (test code = RBC) 5.22 4.20-5.40 [facility] HospitalDnqoxhlDKBJFNCKAD8028-04-15 02:05:00 Test Item Value Reference Range Interpretation Comments WBC (test code = WBC) 7.0 3.7-10.4 [facility] HospitalBwmwabjLEMNPLEEXO7336-73-44 02:05:00 Test Item Value Reference Range Interpretation Comments Hgb (test code = Hgb) 13.5 12.0-16.0 [facility] CenterCjcruwuLRSGDZJORI4688-96-14 02:05:00 Test Item Value Reference Range Interpretation Comments HIV. (test code = Negative *NA*(12/22/17 HIV.) 9:05 PM) [facility]RcxleugTHKVBQGMOL9779-38-36 02:05:00 Test Item Value Reference Range Interpretation Comments Hep B Core IgM (test Negative *NA*(12/22/17 code = Hep B Core 9:05 PM) IgM) [facility] CenterTnemhxaAYVWSMNFBF8692-37-16 02:05:00 Test Item Value Reference Range Interpretation Comments Hep Bs Ag (test code Negative *NA*(12/22/17 = Hep Bs Ag) 9:05 PM) [facility] CenterZoducziFLFBIADSKI6847-72-60 02:05:00 Test Item Value Reference Range Interpretation Comments Hep C Ab (test code = Negative *NA*(12/22/17 Hep C Ab) 9:05 PM) [facility] CenterOsvegekYBVGDNFQOY4942-89-70 02:05:00 Test Item Value Reference Range Interpretation Comments Hep A IgM (test code Negative *NA*(12/22/17 = Hep A IgM) 9:05 PM) [facility]2018-10-14 02:05:00 Test Item Value Reference Range Interpretation Comments Glucose Lvl (test code = Glucose Lvl) 77 70-99 [facility]2018-10-14 02:05:00 Test Item Value Reference Range Interpretation Comments Creatinine Lvl (test code = Creatinine 0.98 0.50-1.40 Lvl) [facility]2018-10-14 02:05:00 Test Item Value Reference Range Interpretation Comments Sodium Lvl (test code = Sodium Lvl) 139 135-145 [facility]2018-10-14 02:05:00 Test Item Value Reference Range Interpretation Comments BUN (test code = BUN) 8 7-22 [facility]2018-10-14 02:05:00 Test Item Value Reference Range Interpretation Comments Total Protein (test code = Total 8.4 6.4-8.4 Protein) [facility]2018-10-14 02:05:00 Test Item Value Reference Range Interpretation Comments Albumin Lvl (test code = Albumin Lvl) 4.3 3.5-5.0 [facility]2018-10-14 02:05:00 Test Item Value Reference Range Interpretation Comments Potassium Lvl (test code = Potassium 4.2 3.5-5.1 Lvl) [facility]2018-10-14 02:05:00 Test Item Value Reference Range Interpretation Comments Chloride Lvl (test code = Chloride Lvl) 110 95-109 [facility]2018-10-14 02:05:00 Test Item Value Reference Range Interpretation Comments CO2 (test code = CO2) 23 24-32 [facility]2018-10-14 02:05:00 Test Item Value Reference Range Interpretation Comments Calcium Lvl (test code = Calcium Lvl) 9.1 8.5-10.5 [facility]2018-10-14 02:05:00 Test Item Value Reference Range Interpretation Comments Bili Total (test code = Bili Total) 0.6 0.2-1.3 [facility]2018-10-14 02:05:00 Test Item Value Reference Range Interpretation Comments ALT (test code = ALT) 21 See_Comment [Auto mated message] The system which ge nerated this result transmit bob reference range : <=65. The reference range was not used to interpr et this result as dominique l/abnormal. [facility]2018-10-14 02:05:00 Test Item Value Reference Range Interpretation Comments AST (test code = AST) 23 See_Comment [Auto mated message] The system which ge nerated this result transmit bob reference range : <=37. The reference range was not used to interpr et this result as dominique l/abnormal. [facility]2018-10-14 02:05:00 Test Item Value Reference Range Interpretation Comments Alk Phos (test code = Alk Phos) 74 39-136 [facility]2018-10-14 02:05:00 Test Item Value Reference Range Interpretation Comments eGFR (test code = eGFR) 96 [facility]2018-10-14 02:05:00 Test Item Value Reference Range Interpretation Comments AGAP (test code = AGAP) 10.2 10.0-20.0 [facility]2018-10-14 02:05:00 Test Item Value Reference Range Interpretation Comments B/C Ratio (test code = B/C Ratio) 8 1 6-25 [facility]2018-10-14 02:05:00 Test Item Value Reference Range Interpretation Comments Globulin (test code = Globulin) 4.1 2.7-4.2 [facility]2018-10-14 02:05:00 Test Item Value Reference Range Interpretation Comments A/G Ratio (test code = A/G Ratio) 1.0 1 0.7-1.6 [facility]2018-10-14 02:05:00 Test Item Value Reference Range Interpretation Comments Glucose Lvl (test code = Glucose Lvl) 77 70-99 [facility] HospitalYnbijtyBVMMHDDYCT1251-32-19 02:05:00 Test Item Value Reference Range Interpretation Comments Neutrophils # (test code = Neutrophils 4.0 1.5-8.1 #) [facility] HospitalMowdpqdSDMWRUWOUI4428-76-15 02:05:00 Test Item Value Reference Range Interpretation Comments Monocytes # (test code 0.5 See_Comment [Aut omated message] The = Monocytes #) system which generated this result tra nsmitted reference range : <=0.8. The reference r sariah was not used to int erpret this result as normal/abnormal . [facility] HospitalQzevskjXHZVCSPRPO0004-49-35 02:05:00 Test Item Value Reference Range Interpretation Comments Lymphocytes # (test code = Lymphocytes 2.3 1.0-5.5 #) [facility] HospitalIosaxjbYFWLQVTYEA5806-55-44 02:05:00 Test Item Value Reference Range Interpretation Comments Eosinophils # (test code 0.1 See_Comment [A utomated message] The = Eosinophils #) system whic h generated this result tra nsmitted reference range : <=0.5. The reference r sariah was not used to int erpret this result as normal/abnormal . [facility] HospitalLlqqscbWLRAEPUJIH8875-56-80 02:05:00 Test Item Value Reference Range Interpretation Comments Eosinophils (test code = 2.0 See_Comment [A utomated message] The Eosinophils) system which ge nerated this result tra nsmitted reference range : <=4.0. The reference r sariah was not used to int erpret this result as normal/abnormal . [facility] HospitalKqendfuHRVYCCFCQH7676-99-44 02:05:00 Test Item Value Reference Range Interpretation Comments Basophils (test code = 0.7 See_Comment [Aut omated message] The Basophils) system which ge nerated this result tra nsmitted reference range : <=1.0. The reference r sariah was not used to int erpret this result as normal/abnormal . [facility] HospitalHyludjmKCHJPBYVYW0930-21-58 02:05:00 Test Item Value Reference Range Interpretation Comments Segs (test code = Segs) 57.2 45.0-75.0 [facility] HospitalYamlkqyAZAQEUPQQD5819-11-48 02:05:00 Test Item Value Reference Range Interpretation Comments Lymphocytes (test code = Lymphocytes) 32.4 20.0-40.0 [facility] HospitalFblvgqaWLYELMZFBP3526-93-73 02:05:00 Test Item Value Reference Range Interpretation Comments Monocytes (test code = Monocytes) 7.7 2.0-12.0 [facility] HospitalBxyzinhZXVTTJVHDU2198-23-45 02:05:00 Test Item Value Reference Range Interpretation Comments Hct (test code = Hct) 41.7 36.0-48.0 [facility]2018-10-14 02:05:00 Test Item Value Reference Range Interpretation Comments Creatinine Lvl (test code = Creatinine 0.98 0.50-1.40 Lvl) [facility] HospitalFmfywfpIJVESHLGBY0123-00-77 02:05:00 Test Item Value Reference Range Interpretation Comments MCH (test code = MCH) 25.9 pg 27.0-31.0 [facility] HospitalHmqgjgaDXHSFVZQWD5738-15-35 02:05:00 Test Item Value Reference Range Interpretation Comments MCV (test code = MCV) 79.8 80.0-98.0 [facility] HospitalTecsydnMTYHXPVYAJ2958-89-13 02:05:00 Test Item Value Reference Range Interpretation Comments MCHC (test code = MCHC) 32.5 32.0-36.0 [facility] HospitalCokxjqaSLZEOVHTJH2724-69-37 02:05:00 Test Item Value Reference Range Interpretation Comments Platelet (test code = Platelet) 208 133-450 [facility] HospitalPnvyjxeHKGYFENKWK9083-84-52 02:05:00 Test Item Value Reference Range Interpretation Comments RDW (test code = RDW) 15.9 11.5-14.5 [facility] HospitalTaalittUOBGOVBGOM3941-40-46 02:05:00 Test Item Value Reference Range Interpretation Comments MPV (test code = MPV) 11.3 7.4-10.4 [facility] HospitalAajpphnPIPFBLXWFU3478-22-39 02:05:00 Test Item Value Reference Range Interpretation Comments RBC (test code = RBC) 5.22 4.20-5.40 [facility] HospitalYumfbemANMDIFJLSV2800-13-88 02:05:00 Test Item Value Reference Range Interpretation Comments WBC (test code = WBC) 7.0 3.7-10.4 [facility] HospitalZginxpfRXTEVRGCFL4078-99-59 02:05:00 Test Item Value Reference Range Interpretation Comments Hgb (test code = Hgb) 13.5 12.0-16.0 [facility]FeopcaeLPPHLNACIL9467-51-42 02:05:00 Test Item Value Reference Range Interpretation Comments HIV. (test code = Negative *NA*(12/22/17 HIV.) 9:05 PM) [facility]2018-10-14 02:05:00 Test Item Value Reference Range Interpretation Comments Sodium Lvl (test code = Sodium Lvl) 139 135-145 [facility] CenterIayjbqiUKGXHOXUXR5913-55-33 02:05:00 Test Item Value Reference Range Interpretation Comments Hep B Core IgM (test Negative *NA*(12/22/17 code = Hep B Core 9:05 PM) IgM) [facility]FzbualdOLADVGJLTT1592-63-43 02:05:00 Test Item Value Reference Range Interpretation Comments Hep Bs Ag (test code Negative *NA*(12/22/17 = Hep Bs Ag) 9:05 PM) [facility] CenterUeuctwmLCFUCMNGXH7142-62-31 02:05:00 Test Item Value Reference Range Interpretation Comments Hep C Ab (test code = Negative *NA*(12/22/17 Hep C Ab) 9:05 PM) [facility] CenterScptttmFOEHUFGSOO7658-74-84 02:05:00 Test Item Value Reference Range Interpretation Comments Hep A IgM (test code Negative *NA*(12/22/17 = Hep A IgM) 9:05 PM) [facility]2018-10-14 02:05:00 Test Item Value Reference Range Interpretation Comments Glucose Lvl (test code = Glucose Lvl) 77 70-99 [facility]2018-10-14 02:05:00 Test Item Value Reference Range Interpretation Comments Creatinine Lvl (test code = Creatinine 0.98 0.50-1.40 Lvl) [facility]2018-10-14 02:05:00 Test Item Value Reference Range Interpretation Comments Sodium Lvl (test code = Sodium Lvl) 139 135-145 [facility]2018-10-14 02:05:00 Test Item Value Reference Range Interpretation Comments BUN (test code = BUN) 8 7-22 [facility]2018-10-14 02:05:00 Test Item Value Reference Range Interpretation Comments Total Protein (test code = Total 8.4 6.4-8.4 Protein) [facility]2018-10-14 02:05:00 Test Item Value Reference Range Interpretation Comments Albumin Lvl (test code = Albumin Lvl) 4.3 3.5-5.0 [facility]2018-10-14 02:05:00 Test Item Value Reference Range Interpretation Comments BUN (test code = BUN) 8 7-22 [facility]2018-10-14 02:05:00 Test Item Value Reference Range Interpretation Comments Potassium Lvl (test code = Potassium 4.2 3.5-5.1 Lvl) [facility]2018-10-14 02:05:00 Test Item Value Reference Range Interpretation Comments Chloride Lvl (test code = Chloride Lvl) 110 95-109 [facility]2018-10-14 02:05:00 Test Item Value Reference Range Interpretation Comments CO2 (test code = CO2) 23 24-32 [facility]2018-10-14 02:05:00 Test Item Value Reference Range Interpretation Comments Calcium Lvl (test code = Calcium Lvl) 9.1 8.5-10.5 [facility]2018-10-14 02:05:00 Test Item Value Reference Range Interpretation Comments Bili Total (test code = Bili Total) 0.6 0.2-1.3 [facility]2018-10-14 02:05:00 Test Item Value Reference Range Interpretation Comments ALT (test code = ALT) 21 See_Comment [Auto mated message] The system which ge nerated this result transmit bob reference range : <=65. The reference range was not used to interpr et this result as dominique l/abnormal. [facility]2018-10-14 02:05:00 Test Item Value Reference Range Interpretation Comments AST (test code = AST) 23 See_Comment [Auto mated message] The system which ge nerated this result transmit bob reference range : <=37. The reference range was not used to interpr et this result as dominique l/abnormal. [facility]2018-10-14 02:05:00 Test Item Value Reference Range Interpretation Comments Alk Phos (test code = Alk Phos) 74 39-136 [facility]2018-10-14 02:05:00 Test Item Value Reference Range Interpretation Comments eGFR (test code = eGFR) 96 [facility]2018-10-14 02:05:00 Test Item Value Reference Range Interpretation Comments AGAP (test code = AGAP) 10.2 10.0-20.0 [facility]2018-10-14 02:05:00 Test Item Value Reference Range Interpretation Comments Total Protein (test code = Total 8.4 6.4-8.4 Protein) [facility]2018-10-14 02:05:00 Test Item Value Reference Range Interpretation Comments B/C Ratio (test code = B/C Ratio) 8 1 6-25 [place] 263868-10-14 02:05:00 Test Item Value Reference Range Interpretation Comments Globulin (test code = Globulin) 4.1 2.7-4.2 [facility]2018-10-14 02:05:00 Test Item Value Reference Range Interpretation Comments A/G Ratio (test code = A/G Ratio) 1.0 1 0.7-1.6 [facility] HospitalJdpgqyxDFOPAUFTKB9844-28-20 02:05:00 Test Item Value Reference Range Interpretation Comments Neutrophils # (test code = Neutrophils 4.0 1.5-8.1 #) [facility] HospitalDehzijvTKZIVLCSUR8681-42-86 02:05:00 Test Item Value Reference Range Interpretation Comments Monocytes # (test code 0.5 See_Comment [Aut omated message] The = Monocytes #) system which generated this result tra nsmitted reference range : <=0.8. The reference r sariah was not used to int erpret this result as normal/abnormal . [facility] HospitalThqwqtlMZKRWOHNOX1576-30-90 02:05:00 Test Item Value Reference Range Interpretation Comments Lymphocytes # (test code = Lymphocytes 2.3 1.0-5.5 #) [facility] HospitalRnwstoxGHFIDHHJRV4898-44-66 02:05:00 Test Item Value Reference Range Interpretation Comments Eosinophils # (test code 0.1 See_Comment [A utomated message] The = Eosinophils #) system whic h generated this result tra nsmitted reference range : <=0.5. The reference r sariah was not used to int erpret this result as normal/abnormal . [facility] HospitalPavziwvIGZYOPXOEB3611-57-05 02:05:00 Test Item Value Reference Range Interpretation Comments Eosinophils (test code = 2.0 See_Comment [A utomated message] The Eosinophils) system which ge nerated this result tra nsmitted reference range : <=4.0. The reference r sariah was not used to int erpret this result as normal/abnormal . [facility] HospitalJnqlzwzBNJOIBVVWE3463-65-42 02:05:00 Test Item Value Reference Range Interpretation Comments Basophils (test code = 0.7 See_Comment [Aut omated message] The Basophils) system which ge nerated this result tra nsmitted reference range : <=1.0. The reference r sariah was not used to int erpret this result as normal/abnormal . [facility] HospitalOdglovkDGIZGINIUM9352-38-41 02:05:00 Test Item Value Reference Range Interpretation Comments Segs (test code = Segs) 57.2 45.0-75.0 [facility]2018-10-14 02:05:00 Test Item Value Reference Range Interpretation Comments Albumin Lvl (test code = Albumin Lvl) 4.3 3.5-5.0 [facility] HospitalGarfopgGIMBRZRBGY2128-83-94 02:05:00 Test Item Value Reference Range Interpretation Comments Lymphocytes (test code = Lymphocytes) 32.4 20.0-40.0 [facility] HospitalVqpdrprCYEYFJTFET9079-74-88 02:05:00 Test Item Value Reference Range Interpretation Comments Monocytes (test code = Monocytes) 7.7 2.0-12.0 [facility] HospitalZaulvwrEGSNTHKYIW4484-37-22 02:05:00 Test Item Value Reference Range Interpretation Comments Hct (test code = Hct) 41.7 36.0-48.0 [facility] HospitalOjyqdcdEGLGIYHGCC7844-52-95 02:05:00 Test Item Value Reference Range Interpretation Comments MCH (test code = MCH) 25.9 pg 27.0-31.0 [facility] HospitalCczcnhvQSOGDWNNLM1167-49-85 02:05:00 Test Item Value Reference Range Interpretation Comments MCV (test code = MCV) 79.8 80.0-98.0 [facility] HospitalMcjzeddNQKYDDATHR3012-36-00 02:05:00 Test Item Value Reference Range Interpretation Comments MCHC (test code = MCHC) 32.5 32.0-36.0 [facility]TtgdaukEWEEBGKXLI5847-81-92 02:05:00 Test Item Value Reference Range Interpretation Comments Platelet (test code = Platelet) 208 133-450 [facility]UgsvshqLEBECCDGLD4751-66-84 02:05:00 Test Item Value Reference Range Interpretation Comments RDW (test code = RDW) 15.9 11.5-14.5 [facility] CenterOaqfeixDEULZCGEHA5231-31-39 02:05:00 Test Item Value Reference Range Interpretation Comments MPV (test code = MPV) 11.3 7.4-10.4 [facility] CenterYrsbvqqQRAJOXNTFQ9201-73-32 02:05:00 Test Item Value Reference Range Interpretation Comments RBC (test code = RBC) 5.22 4.20-5.40 [facility]2018-10-14 02:05:00 Test Item Value Reference Range Interpretation Comments Potassium Lvl (test code = Potassium 4.2 3.5-5.1 Lvl) [facility] HospitalLxeyqlzGNLXNZJNKF1326-01-10 02:05:00 Test Item Value Reference Range Interpretation Comments WBC (test code = WBC) 7.0 3.7-10.4 [facility] CenterSmweiphLAQDJYSBSA8062-45-59 02:05:00 Test Item Value Reference Range Interpretation Comments Hgb (test code = Hgb) 13.5 12.0-16.0 [facility] CenterVxnzalfMCVOCLYHGU8190-65-19 02:05:00 Test Item Value Reference Range Interpretation Comments HIV. (test code = Negative *NA*(12/22/17 HIV.) 9:05 PM) [facility] CenterHaccxagNKRKUSIUAL9059-12-45 02:05:00 Test Item Value Reference Range Interpretation Comments Hep B Core IgM (test Negative *NA*(12/22/17 code = Hep B Core 9:05 PM) IgM) [facility] CenterMifeisyXGJEFLAIWL2691-08-54 02:05:00 Test Item Value Reference Range Interpretation Comments Hep Bs Ag (test code Negative *NA*(12/22/17 = Hep Bs Ag) 9:05 PM) [facility] CenterCgrktcyKGPKPGMAQU5907-11-56 02:05:00 Test Item Value Reference Range Interpretation Comments Hep C Ab (test code = Negative *NA*(12/22/17 Hep C Ab) 9:05 PM) [facility] CenterFneawdsMCGVBVBKHR9266-12-79 02:05:00 Test Item Value Reference Range Interpretation Comments Hep A IgM (test code Negative *NA*(12/22/17 = Hep A IgM) 9:05 PM) [facility]2018-10-14 02:05:00 Test Item Value Reference Range Interpretation Comments Glucose Lvl (test code = Glucose Lvl) 77 70-99 [facility]2018-10-14 02:05:00 Test Item Value Reference Range Interpretation Comments Creatinine Lvl (test code = Creatinine 0.98 0.50-1.40 Lvl) [facility]2018-10-14 02:05:00 Test Item Value Reference Range Interpretation Comments Sodium Lvl (test code = Sodium Lvl) 139 135-145 [facility]2018-10-14 02:05:00 Test Item Value Reference Range Interpretation Comments Chloride Lvl (test code = Chloride Lvl) 110 95-109 [facility]2018-10-14 02:05:00 Test Item Value Reference Range Interpretation Comments BUN (test code = BUN) 8 7-22 [facility]2018-10-14 02:05:00 Test Item Value Reference Range Interpretation Comments Total Protein (test code = Total 8.4 6.4-8.4 Protein) [facility]2018-10-14 02:05:00 Test Item Value Reference Range Interpretation Comments Albumin Lvl (test code = Albumin Lvl) 4.3 3.5-5.0 [facility]2018-10-14 02:05:00 Test Item Value Reference Range Interpretation Comments Potassium Lvl (test code = Potassium 4.2 3.5-5.1 Lvl) [facility]2018-10-14 02:05:00 Test Item Value Reference Range Interpretation Comments Chloride Lvl (test code = Chloride Lvl) 110 95-109 [facility]2018-10-14 02:05:00 Test Item Value Reference Range Interpretation Comments CO2 (test code = CO2) 23 24-32 [facility]2018-10-14 02:05:00 Test Item Value Reference Range Interpretation Comments Calcium Lvl (test code = Calcium Lvl) 9.1 8.5-10.5 [facility]2018-10-14 02:05:00 Test Item Value Reference Range Interpretation Comments Bili Total (test code = Bili Total) 0.6 0.2-1.3 [facility]2018-10-14 02:05:00 Test Item Value Reference Range Interpretation Comments ALT (test code = ALT) 21 See_Comment [Auto mated message] The system which ge nerated this result transmit bob reference range : <=65. The reference range was not used to interpr et this result as dominique l/abnormal. [facility]2018-10-14 02:05:00 Test Item Value Reference Range Interpretation Comments AST (test code = AST) 23 See_Comment [Auto mated message] The system which ge nerated this result transmit bob reference range : <=37. The reference range was not used to interpr et this result as dominique l/abnormal. [facility]2018-10-14 02:05:00 Test Item Value Reference Range Interpretation Comments CO2 (test code = CO2) 23 24-32 [facility]2018-10-14 02:05:00 Test Item Value Reference Range Interpretation Comments Alk Phos (test code = Alk Phos) 74 39-136 [facility]2018-10-14 02:05:00 Test Item Value Reference Range Interpretation Comments eGFR (test code = eGFR) 96 [facility]2018-10-14 02:05:00 Test Item Value Reference Range Interpretation Comments AGAP (test code = AGAP) 10.2 10.0-20.0 [facility]2018-10-14 02:05:00 Test Item Value Reference Range Interpretation Comments B/C Ratio (test code = B/C Ratio) 8 1 6-25 [facility]2018-10-14 02:05:00 Test Item Value Reference Range Interpretation Comments Globulin (test code = Globulin) 4.1 2.7-4.2 [facility]2018-10-14 02:05:00 Test Item Value Reference Range Interpretation Comments A/G Ratio (test code = A/G Ratio) 1.0 1 0.7-1.6 [facility] HospitalVxayyeuFJRZNNVEVU6442-11-99 02:05:00 Test Item Value Reference Range Interpretation Comments Neutrophils # (test code = Neutrophils 4.0 1.5-8.1 #) [facility] HospitalHekgefoCYFMUYCHXS6517-99-13 02:05:00 Test Item Value Reference Range Interpretation Comments Monocytes # (test code 0.5 See_Comment [Aut omated message] The = Monocytes #) system which generated this result tra nsmitted reference range : <=0.8. The reference r sariah was not used to int erpret this result as normal/abnormal . [facility] HospitalHchtirmDEWJZVRHOA3272-70-46 02:05:00 Test Item Value Reference Range Interpretation Comments Lymphocytes # (test code = Lymphocytes 2.3 1.0-5.5 #) [facility] HospitalApgwrdjORIIXSWNAP2282-20-90 02:05:00 Test Item Value Reference Range Interpretation Comments Eosinophils # (test code 0.1 See_Comment [A utomated message] The = Eosinophils #) system whic h generated this result tra nsmitted reference range : <=0.5. The reference r sariah was not used to int erpret this result as normal/abnormal . [facility]2018-10-14 02:05:00 Test Item Value Reference Range Interpretation Comments Calcium Lvl (test code = Calcium Lvl) 9.1 8.5-10.5 [facility] HospitalZkuvigvSNGQMIOIJU4729-38-53 02:05:00 Test Item Value Reference Range Interpretation Comments Eosinophils (test code = 2.0 See_Comment [A utomated message] The Eosinophils) system which ge nerated this result tra nsmitted reference range : <=4.0. The reference r sariah was not used to int erpret this result as normal/abnormal . [facility] HospitalKmglaigVVZGMEDGHH8199-01-60 02:05:00 Test Item Value Reference Range Interpretation Comments Basophils (test code = 0.7 See_Comment [Aut omated message] The Basophils) system which ge nerated this result tra nsmitted reference range : <=1.0. The reference r sariah was not used to int erpret this result as normal/abnormal . [facility] HospitalHlghwogBBYVAFHKIU5757-30-62 02:05:00 Test Item Value Reference Range Interpretation Comments Segs (test code = Segs) 57.2 45.0-75.0 [facility] HospitalKxontcsNJJBSNFLCI9275-05-33 02:05:00 Test Item Value Reference Range Interpretation Comments Lymphocytes (test code = Lymphocytes) 32.4 20.0-40.0 [facility] HospitalMtshbgbMVEOSUFNLL2761-43-91 02:05:00 Test Item Value Reference Range Interpretation Comments Monocytes (test code = Monocytes) 7.7 2.0-12.0 [facility] CenterXwgdsiwSGDCMBWWJH4583-41-14 02:05:00 Test Item Value Reference Range Interpretation Comments Hct (test code = Hct) 41.7 36.0-48.0 [facility] CenterJhgkwpvMMXGEKYUDX6702-08-21 02:05:00 Test Item Value Reference Range Interpretation Comments MCH (test code = MCH) 25.9 pg 27.0-31.0 [facility]UuvigroHSVRJEJRQS3669-10-23 02:05:00 Test Item Value Reference Range Interpretation Comments MCV (test code = MCV) 79.8 80.0-98.0 [facility] CenterAujqwqmICTYKPWFWF1734-76-34 02:05:00 Test Item Value Reference Range Interpretation Comments MCHC (test code = MCHC) 32.5 32.0-36.0 [facility] HospitalQcskyrmMYIQPLDBVL8664-33-04 02:05:00 Test Item Value Reference Range Interpretation Comments Platelet (test code = Platelet) 208 133-450 [facility]2018-10-14 02:05:00 Test Item Value Reference Range Interpretation Comments Bili Total (test code = Bili Total) 0.6 0.2-1.3 [facility] Hospital[facility]wttfreFTDULSQVUV6540-16-50 02:05:00 Test Item Value Reference Range Interpretation Comments RDW (test code = RDW) 15.9 11.5-14.5 [facility]AkpqyekQMNKEAAXVW6202-27-47 02:05:00 Test Item Value Reference Range Interpretation Comments MPV (test code = MPV) 11.3 7.4-10.4 [facility] HospitalIfqvfcaUNRUVJOAHC4204-24-88 02:05:00 Test Item Value Reference Range Interpretation Comments RBC (test code = RBC) 5.22 4.20-5.40 [facility] HospitalWhebuzuSWCODZPKDA7564-13-35 02:05:00 Test Item Value Reference Range Interpretation Comments WBC (test code = WBC) 7.0 3.7-10.4 [facility] HospitalJxlfhwnGYHJWMPFHV4633-96-49 02:05:00 Test Item Value Reference Range Interpretation Comments Hgb (test code = Hgb) 13.5 12.0-16.0 [facility]JtksetbOQDZNHCTES7421-90-48 02:05:00 Test Item Value Reference Range Interpretation Comments HIV. (test code = Negative *NA*(12/22/17 HIV.) 9:05 PM) [facility] CenterUfcxqktQMHUMVJUQE1074-86-89 02:05:00 Test Item Value Reference Range Interpretation Comments Hep B Core IgM (test Negative *NA*(12/22/17 code = Hep B Core 9:05 PM) IgM) [facility]YrceilxIYEWOMPRMT8157-18-99 02:05:00 Test Item Value Reference Range Interpretation Comments Hep Bs Ag (test code Negative *NA*(12/22/17 = Hep Bs Ag) 9:05 PM) [facility] CenterBntxrsgOJLSLRFMQQ5666-28-71 02:05:00 Test Item Value Reference Range Interpretation Comments Hep C Ab (test code = Negative *NA*(12/22/17 Hep C Ab) 9:05 PM) [facility] CenterRwiwbfeRRPWJXXBSM9473-66-59 02:05:00 Test Item Value Reference Range Interpretation Comments Hep A IgM (test code Negative *NA*(12/22/17 = Hep A IgM) 9:05 PM) [facility]2018-10-14 02:05:00 Test Item Value Reference Range Interpretation Comments ALT (test code = ALT) 21 See_Comment [Auto mated message] The system which ge nerated this result transmit bob reference range : <=65. The reference range was not used to interpr et this result as dominique l/abnormal. [facility]2018-10-14 02:05:00 Test Item Value Reference Range Interpretation Comments Glucose Lvl (test code = Glucose Lvl) 77 70-99 [facility]2018-10-14 02:05:00 Test Item Value Reference Range Interpretation Comments Creatinine Lvl (test code = Creatinine 0.98 0.50-1.40 Lvl) [facility]2018-10-14 02:05:00 Test Item Value Reference Range Interpretation Comments Sodium Lvl (test code = Sodium Lvl) 139 135-145 [facility]2018-10-14 02:05:00 Test Item Value Reference Range Interpretation Comments BUN (test code = BUN) 8 7-22 [facility]2018-10-14 02:05:00 Test Item Value Reference Range Interpretation Comments Total Protein (test code = Total 8.4 6.4-8.4 Protein) [facility]2018-10-14 02:05:00 Test Item Value Reference Range Interpretation Comments Albumin Lvl (test code = Albumin Lvl) 4.3 3.5-5.0 [facility]2018-10-14 02:05:00 Test Item Value Reference Range Interpretation Comments Potassium Lvl (test code = Potassium 4.2 3.5-5.1 Lvl) [facility]2018-10-14 02:05:00 Test Item Value Reference Range Interpretation Comments Chloride Lvl (test code = Chloride Lvl) 110 95-109 [facility]2018-10-14 02:05:00 Test Item Value Reference Range Interpretation Comments CO2 (test code = CO2) 23 24-32 [facility]2018-10-14 02:05:00 Test Item Value Reference Range Interpretation Comments Calcium Lvl (test code = Calcium Lvl) 9.1 8.5-10.5 [facility]2018-10-14 02:05:00 Test Item Value Reference Range Interpretation Comments AST (test code = AST) 23 See_Comment [Auto mated message] The system which ge nerated this result transmit bob reference range : <=37. The reference range was not used to interpr et this result as dominique l/abnormal. [facility]2018-10-14 02:05:00 Test Item Value Reference Range Interpretation Comments Bili Total (test code = Bili Total) 0.6 0.2-1.3 [facility]2018-10-14 02:05:00 Test Item Value Reference Range Interpretation Comments ALT (test code = ALT) 21 See_Comment [Auto mated message] The system which ge nerated this result transmit bob reference range : <=65. The reference range was not used to interpr et this result as dominique l/abnormal. [facility]2018-10-14 02:05:00 Test Item Value Reference Range Interpretation Comments AST (test code = AST) 23 See_Comment [Auto mated message] The system which ge nerated this result transmit bob reference range : <=37. The reference range was not used to interpr et this result as dominique l/abnormal. [facility]2018-10-14 02:05:00 Test Item Value Reference Range Interpretation Comments Alk Phos (test code = Alk Phos) 74 39-136 [place] 263868-10-14 02:05:00 Test Item Value Reference Range Interpretation Comments eGFR (test code = eGFR) 96 [facility]2018-10-14 02:05:00 Test Item Value Reference Range Interpretation Comments AGAP (test code = AGAP) 10.2 10.0-20.0 [facility]2018-10-14 02:05:00 Test Item Value Reference Range Interpretation Comments B/C Ratio (test code = B/C Ratio) 8 1 6-25 [facility]2018-10-14 02:05:00 Test Item Value Reference Range Interpretation Comments Alk Phos (test code = Alk Phos) 74 39-136 [facility]2018-10-14 02:05:00 Test Item Value Reference Range Interpretation Comments Globulin (test code = Globulin) 4.1 2.7-4.2 [facility]2018-10-14 02:05:00 Test Item Value Reference Range Interpretation Comments A/G Ratio (test code = A/G Ratio) 1.0 1 0.7-1.6 [facility] HospitalCfljjjnALKYSQLMFB0688-70-06 02:05:00 Test Item Value Reference Range Interpretation Comments Neutrophils # (test code = Neutrophils 4.0 1.5-8.1 #) [facility] HospitalXlpmxcfSWPWYTDYTC2292-15-63 02:05:00 Test Item Value Reference Range Interpretation Comments Monocytes # (test code 0.5 See_Comment [Aut omated message] The = Monocytes #) system which generated this result tra nsmitted reference range : <=0.8. The reference r sariah was not used to int erpret this result as normal/abnormal . [facility] HospitalKlyrjxuTSNETCMBLM8770-89-19 02:05:00 Test Item Value Reference Range Interpretation Comments Lymphocytes # (test code = Lymphocytes 2.3 1.0-5.5 #) [facility]2018-10-14 02:05:00 Test Item Value Reference Range Interpretation Comments eGFR (test code = eGFR) 96 [facility] HospitalShqkpkcUCFGWRQBGU2864-91-00 02:05:00 Test Item Value Reference Range Interpretation Comments Eosinophils # (test code 0.1 See_Comment [A utomated message] The = Eosinophils #) system whic h generated this result tra nsmitted reference range : <=0.5. The reference r sariah was not used to int erpret this result as normal/abnormal . [facility] HospitalCsiinkzPBYDLNPLAW5170-60-65 02:05:00 Test Item Value Reference Range Interpretation Comments Eosinophils (test code = 2.0 See_Comment [A utomated message] The Eosinophils) system which ge nerated this result tra nsmitted reference range : <=4.0. The reference r sariah was not used to int erpret this result as normal/abnormal . [facility] HospitalXeqzblzEVYFTLZAWX5201-84-52 02:05:00 Test Item Value Reference Range Interpretation Comments Basophils (test code = 0.7 See_Comment [Aut omated message] The Basophils) system which ge nerated this result tra nsmitted reference range : <=1.0. The reference r sariah was not used to int erpret this result as normal/abnormal . [facility] HospitalScvvmpjQXCIINLEPK7082-24-19 02:05:00 Test Item Value Reference Range Interpretation Comments Segs (test code = Segs) 57.2 45.0-75.0 [facility] HospitalZldojueKVRYHUCWXO0823-80-27 02:05:00 Test Item Value Reference Range Interpretation Comments Lymphocytes (test code = Lymphocytes) 32.4 20.0-40.0 [facility] HospitalSkexwzdYWIOBSXLQM4577-33-94 02:05:00 Test Item Value Reference Range Interpretation Comments Monocytes (test code = Monocytes) 7.7 2.0-12.0 [facility]2018-10-14 02:05:00 Test Item Value Reference Range Interpretation Comments AGAP (test code = AGAP) 10.2 10.0-20.0 [facility] HospitalKcieptrEZUSERJFWR7239-72-80 02:05:00 Test Item Value Reference Range Interpretation Comments Hct (test code = Hct) 41.7 36.0-48.0 [facility] HospitalJsbjjnwZFQUJTMFWI4339-54-95 02:05:00 Test Item Value Reference Range Interpretation Comments MCH (test code = MCH) 25.9 pg 27.0-31.0 [facility] HospitalKqxfudtZBLBNTAHMG4233-92-46 02:05:00 Test Item Value Reference Range Interpretation Comments MCV (test code = MCV) 79.8 80.0-98.0 [facility] HospitalNgafbcgTKVHPJFBCF1959-22-41 02:05:00 Test Item Value Reference Range Interpretation Comments MCHC (test code = MCHC) 32.5 32.0-36.0 [facility] HospitalUqfuosfIAFMXAJAST2162-64-06 02:05:00 Test Item Value Reference Range Interpretation Comments Platelet (test code = Platelet) 208 133-450 [facility] HospitalNvanzszYHVDHNNJNI2320-57-12 02:05:00 Test Item Value Reference Range Interpretation Comments RDW (test code = RDW) 15.9 11.5-14.5 [facility] HospitalQdcjanuXHHZLHGZUW5474-43-58 02:05:00 Test Item Value Reference Range Interpretation Comments MPV (test code = MPV) 11.3 7.4-10.4 [facility] HospitalRtuixdoMUWSQLGGWW8782-16-40 02:05:00 Test Item Value Reference Range Interpretation Comments RBC (test code = RBC) 5.22 4.20-5.40 [facility]2018-10-14 02:05:00 Test Item Value Reference Range Interpretation Comments B/C Ratio (test code = B/C Ratio) 8 1 6-25 [facility] HospitalJptmkhrOCAHKYXYYI0303-06-79 02:05:00 Test Item Value Reference Range Interpretation Comments WBC (test code = WBC) 7.0 3.7-10.4 [facility] HospitalAufepwzTPSOZEOUPK3324-02-86 02:05:00 Test Item Value Reference Range Interpretation Comments Hgb (test code = Hgb) 13.5 12.0-16.0 [facility]QaxpbybXOWLBVEVGL8170-60-23 02:05:00 Test Item Value Reference Range Interpretation Comments HIV. (test code = Negative *NA*(12/22/17 HIV.) 9:05 PM) [facility] CenterFddcwfmACOJXKUSIS4975-78-43 02:05:00 Test Item Value Reference Range Interpretation Comments Hep B Core IgM (test Negative *NA*(12/22/17 code = Hep B Core 9:05 PM) IgM) [facility] CenterCgvpbkpWPWAYBDHKL2651-17-89 02:05:00 Test Item Value Reference Range Interpretation Comments Hep Bs Ag (test code Negative *NA*(12/22/17 = Hep Bs Ag) 9:05 PM) [facility] CenterTbdeopwEDVADRMFXK9482-73-36 02:05:00 Test Item Value Reference Range Interpretation Comments Hep C Ab (test code = Negative *NA*(12/22/17 Hep C Ab) 9:05 PM) [facility] CenterIpwjfnsEOTHQVXMUU0384-38-82 02:05:00 Test Item Value Reference Range Interpretation Comments Hep A IgM (test code Negative *NA*(12/22/17 = Hep A IgM) 9:05 PM) [facility]2018-10-14 02:05:00 Test Item Value Reference Range Interpretation Comments Glucose Lvl (test code = Glucose Lvl) 77 70-99 [facility]2018-10-14 02:05:00 Test Item Value Reference Range Interpretation Comments Globulin (test code = Globulin) 4.1 2.7-4.2 [facility]2018-10-14 02:05:00 Test Item Value Reference Range Interpretation Comments Creatinine Lvl (test code = Creatinine 0.98 0.50-1.40 Lvl) [facility]2018-10-14 02:05:00 Test Item Value Reference Range Interpretation Comments Sodium Lvl (test code = Sodium Lvl) 139 135-145 [facility]2018-10-14 02:05:00 Test Item Value Reference Range Interpretation Comments BUN (test code = BUN) 8 7-22 [facility]2018-10-14 02:05:00 Test Item Value Reference Range Interpretation Comments Total Protein (test code = Total 8.4 6.4-8.4 Protein) [facility]2018-10-14 02:05:00 Test Item Value Reference Range Interpretation Comments Albumin Lvl (test code = Albumin Lvl) 4.3 3.5-5.0 [facility]2018-10-14 02:05:00 Test Item Value Reference Range Interpretation Comments Potassium Lvl (test code = Potassium 4.2 3.5-5.1 Lvl) [facility]2018-10-14 02:05:00 Test Item Value Reference Range Interpretation Comments A/G Ratio (test code = A/G Ratio) 1.0 1 0.7-1.6 [facility]2018-10-14 02:05:00 Test Item Value Reference Range Interpretation Comments Chloride Lvl (test code = Chloride Lvl) 110 95-109 [facility]2018-10-14 02:05:00 Test Item Value Reference Range Interpretation Comments CO2 (test code = CO2) 23 24-32 [facility]2018-10-14 02:05:00 Test Item Value Reference Range Interpretation Comments Calcium Lvl (test code = Calcium Lvl) 9.1 8.5-10.5 [facility]2018-10-14 02:05:00 Test Item Value Reference Range Interpretation Comments Bili Total (test code = Bili Total) 0.6 0.2-1.3 [facility]2018-10-14 02:05:00 Test Item Value Reference Range Interpretation Comments ALT (test code = ALT) 21 See_Comment [Auto mated message] The system which ge nerated this result transmit bob reference range : <=65. The reference range was not used to interpr et this result as dominique l/abnormal. [facility]2018-10-14 02:05:00 Test Item Value Reference Range Interpretation Comments AST (test code = AST) 23 See_Comment [Auto mated message] The system which ge nerated this result transmit bob reference range : <=37. The reference range was not used to interpr et this result as dominique l/abnormal. [facility] HospitalWqbemonOYUDEXCAWK8617-34-25 02:05:00 Test Item Value Reference Range Interpretation Comments Neutrophils # (test code = Neutrophils 4.0 1.5-8.1 #) [facility]2018-10-14 02:05:00 Test Item Value Reference Range Interpretation Comments Alk Phos (test code = Alk Phos) 74 39-136 [facility]2018-10-14 02:05:00 Test Item Value Reference Range Interpretation Comments eGFR (test code = eGFR) 96 [facility]2018-10-14 02:05:00 Test Item Value Reference Range Interpretation Comments AGAP (test code = AGAP) 10.2 10.0-20.0 [facility]2018-10-14 02:05:00 Test Item Value Reference Range Interpretation Comments B/C Ratio (test code = B/C Ratio) 8 1 6-25 [facility]2018-10-14 02:05:00 Test Item Value Reference Range Interpretation Comments Globulin (test code = Globulin) 4.1 2.7-4.2 [facility]2018-10-14 02:05:00 Test Item Value Reference Range Interpretation Comments A/G Ratio (test code = A/G Ratio) 1.0 1 0.7-1.6 [facility] HospitalWhjoxemEVTTFURIAE2163-75-44 02:05:00 Test Item Value Reference Range Interpretation Comments Monocytes # (test code 0.5 See_Comment [Aut omated message] The = Monocytes #) system which generated this result tra nsmitted reference range : <=0.8. The reference r sariah was not used to int erpret this result as normal/abnormal . [facility] HospitalQofirtkKIMGNNETQG7590-84-79 02:05:00 Test Item Value Reference Range Interpretation Comments Neutrophils # (test code = Neutrophils 4.0 1.5-8.1 #) [facility] HospitalTmhwuuvYNZCLBLXWN0894-18-53 02:05:00 Test Item Value Reference Range Interpretation Comments Monocytes # (test code 0.5 See_Comment [Aut omated message] The = Monocytes #) system which generated this result tra nsmitted reference range : <=0.8. The reference r sariah was not used to int erpret this result as normal/abnormal . [facility] HospitalLqwcnunCSYEJVUKKD3491-86-80 02:05:00 Test Item Value Reference Range Interpretation Comments Lymphocytes # (test code = Lymphocytes 2.3 1.0-5.5 #) [facility] HospitalJtngnojBFKCNYNPOT1691-57-97 02:05:00 Test Item Value Reference Range Interpretation Comments Eosinophils # (test code 0.1 See_Comment [A utomated message] The = Eosinophils #) system [facility] h generated this result tra nsmitted reference range : <=0.5. The reference r sariah was not used to int erpret this result as normal/abnormal . [facility] HospitalJxsmhtbDISHZSTACW3720-17-66 02:05:00 Test Item Value Reference Range Interpretation Comments Eosinophils (test code = 2.0 See_Comment [A utomated message] The Eosinophils) system which ge nerated this result tra nsmitted reference range : <=4.0. The reference r sariah was not used to int erpret this result as normal/abnormal . [facility] HospitalYuqhzyoHJJBDVQYKH9911-09-81 02:05:00 Test Item Value Reference Range Interpretation Comments Basophils (test code = 0.7 See_Comment [Aut omated message] The Basophils) system which ge nerated this result tra nsmitted reference range : <=1.0. The reference r sariah was not used to int erpret this result as normal/abnormal . [facility] HospitalTyryibdZODYKZCWVA0848-79-23 02:05:00 Test Item Value Reference Range Interpretation Comments Segs (test code = Segs) 57.2 45.0-75.0 [facility] HospitalIosoywdVQFCORSAOC1785-00-56 02:05:00 Test Item Value Reference Range Interpretation Comments Lymphocytes # (test code = Lymphocytes 2.3 1.0-5.5 #) [facility] HospitalUlecuytUUFAHCJRBD7319-52-95 02:05:00 Test Item Value Reference Range Interpretation Comments Lymphocytes (test code = Lymphocytes) 32.4 20.0-40.0 [facility] HospitalRmbvcxuPNXAAENVNX4689-32-80 02:05:00 Test Item Value Reference Range Interpretation Comments Monocytes (test code = Monocytes) 7.7 2.0-12.0 [facility] HospitalIuhqoxeKJAEKXNLDJ3707-40-26 02:05:00 Test Item Value Reference Range Interpretation Comments Hct (test code = Hct) 41.7 36.0-48.0 [facility] HospitalDmxlifkPTRFRXWFVK8145-05-47 02:05:00 Test Item Value Reference Range Interpretation Comments MCH (test code = MCH) 25.9 pg 27.0-31.0 [facility] HospitalYzorhvnYTZWJGOAZX4850-94-67 02:05:00 Test Item Value Reference Range Interpretation Comments MCV (test code = MCV) 79.8 80.0-98.0 [facility] HospitalIximjwkBUYYWIPPWR0652-49-97 02:05:00 Test Item Value Reference Range Interpretation Comments MCHC (test code = MCHC) 32.5 32.0-36.0 [facility] HospitalSenmxtzKMZRYSYDOZ0089-98-73 02:05:00 Test Item Value Reference Range Interpretation Comments Platelet (test code = Platelet) 208 133-450 [facility] HospitalUhlipglSAUKKIGQSA2607-80-02 02:05:00 Test Item Value Reference Range Interpretation Comments RDW (test code = RDW) 15.9 11.5-14.5 [facility] HospitalJznwbncYUGBUHUZBV2021-71-39 02:05:00 Test Item Value Reference Range Interpretation Comments Eosinophils # (test code 0.1 See_Comment [A utomated message] The = Eosinophils #) system whic h generated this result tra nsmitted reference range : <=0.5. The reference r sariah was not used to int erpret this result as normal/abnormal . [facility] HospitalVclksbcTHDZBPUHYE3834-29-58 02:05:00 Test Item Value Reference Range Interpretation Comments MPV (test code = MPV) 11.3 7.4-10.4 [facility] CenterLlhskowXPFXKSMSPF5426-46-63 02:05:00 Test Item Value Reference Range Interpretation Comments RBC (test code = RBC) 5.22 4.20-5.40 [facility]CewcfxxLINFXVBKYH2150-01-76 02:05:00 Test Item Value Reference Range Interpretation Comments WBC (test code = WBC) 7.0 3.7-10.4 [facility] HospitalPoldgvdMITUNWKRWN3162-88-67 02:05:00 Test Item Value Reference Range Interpretation Comments Hgb (test code = Hgb) 13.5 12.0-16.0 [facility] CenterLuwdvlcPDQCCMXXWG2667-63-48 02:05:00 Test Item Value Reference Range Interpretation Comments HIV. (test code = Negative *NA*(12/22/17 HIV.) 9:05 PM) [facility]HxmsnprILXHUHLVRI5817-35-76 02:05:00 Test Item Value Reference Range Interpretation Comments Hep B Core IgM (test Negative *NA*(12/22/17 code = Hep B Core 9:05 PM) IgM) [facility] CenterHokzmfnQITPRRPRML5094-90-15 02:05:00 Test Item Value Reference Range Interpretation Comments Hep Bs Ag (test code Negative *NA*(12/22/17 = Hep Bs Ag) 9:05 PM) [facility] CenterNckjprfWHHNDNHCMH4227-65-51 02:05:00 Test Item Value Reference Range Interpretation Comments Eosinophils (test code = 2.0 See_Comment [A utomated message] The Eosinophils) system which ge nerated this result tra nsmitted reference range : <=4.0. The reference r sariah was not used to int erpret this result as normal/abnormal . [facility] CenterAlqwzebEUHETHMTLG3734-29-22 02:05:00 Test Item Value Reference Range Interpretation Comments Hep C Ab (test code = Negative *NA*(12/22/17 Hep C Ab) 9:05 PM) [facility] CenterKkrsvecQDFELQGQKE7175-44-30 02:05:00 Test Item Value Reference Range Interpretation Comments Hep A IgM (test code Negative *NA*(12/22/17 = Hep A IgM) 9:05 PM) [facility] CenterCHEM QECDD1785-79-13 02:05:00 Test Item Value Reference Range Interpretation Comments Glucose Lvl (test code = Glucose Lvl) 77 70-99 [facility]2018-10-14 02:05:00 Test Item Value Reference Range Interpretation Comments Creatinine Lvl (test code = Creatinine 0.98 0.50-1.40 Lvl) [facility]2018-10-14 02:05:00 Test Item Value Reference Range Interpretation Comments Sodium Lvl (test code = Sodium Lvl) 139 135-145 [facility]2018-10-14 02:05:00 Test Item Value Reference Range Interpretation Comments BUN (test code = BUN) 8 7-22 [facility] HospitalEnroibwZCQIXWTMDX0137-04-89 02:05:00 Test Item Value Reference Range Interpretation Comments Basophils (test code = 0.7 See_Comment [Aut omated message] The Basophils) system which ge nerated this result tra nsmitted reference range : <=1.0. The reference r sariah was not used to int erpret this result as normal/abnormal . [facility]2018-10-14 02:05:00 Test Item Value Reference Range Interpretation Comments Total Protein (test code = Total 8.4 6.4-8.4 Protein) [facility]2018-10-14 02:05:00 Test Item Value Reference Range Interpretation Comments Albumin Lvl (test code = Albumin Lvl) 4.3 3.5-5.0 [facility]2018-10-14 02:05:00 Test Item Value Reference Range Interpretation Comments Potassium Lvl (test code = Potassium 4.2 3.5-5.1 Lvl) [facility]2018-10-14 02:05:00 Test Item Value Reference Range Interpretation Comments Chloride Lvl (test code = Chloride Lvl) 110 95-109 [facility]2018-10-14 02:05:00 Test Item Value Reference Range Interpretation Comments CO2 (test code = CO2) 23 24-32 [facility]2018-10-14 02:05:00 Test Item Value Reference Range Interpretation Comments Calcium Lvl (test code = Calcium Lvl) 9.1 8.5-10.5 [facility]2018-10-14 02:05:00 Test Item Value Reference Range Interpretation Comments Bili Total (test code = Bili Total) 0.6 0.2-1.3 [facility] [facility] [place]2018-[facility]-14 02:05:00 Test Item Value Reference Range Interpretation Comments ALT (test code = ALT) 21 See_Comment [Auto mated message] The system which ge nerated this result transmit bob reference range : <=65. The reference range was not used to interpr et this result as dominique l/abnormal. [facility] HospitalVohvagoLBEWEJZOZB0071-70-86 02:05:00 Test Item Value Reference Range Interpretation Comments Segs (test code = Segs) 57.2 45.0-75.0 [facility] [place]2018-10-14 02:05:00 Test Item Value Reference Range Interpretation Comments AST (test code = AST) 23 See_Comment [Auto mated message] The system which ge nerated this result transmit bob reference range : <=37. The reference range was not used to interpr et this result as dominique l/abnormal. [facility] [place]2018-10-14 02:05:00 Test Item Value Reference Range Interpretation Comments Alk Phos (test code = Alk Phos) 74 39-136 [facility] [place]2018-10-14 02:05:00 Test Item Value Reference Range Interpretation Comments eGFR (test code = eGFR) 96 [facility] [place]2018-10-14 02:05:00 Test Item Value Reference Range Interpretation Comments AGAP (test code = AGAP) 10.2 10.0-20.0 [facility] [place]2018-10-14 02:05:00 Test Item Value Reference Range Interpretation Comments B/C Ratio (test code = B/C Ratio) 8 1 6-25 [facility] [place]2018-10-14 02:05:00 Test Item Value Reference Range Interpretation Comments Globulin (test code = Globulin) 4.1 2.7-4.2 [facility] HospitalTplfozaDWTEBUTOSK8765-36-87 02:05:00 Test Item Value Reference Range Interpretation Comments Lymphocytes (test code = Lymphocytes) 32.4 20.0-40.0 [facility] [place]2018-10-14 02:05:00 Test Item Value Reference Range Interpretation Comments A/G Ratio (test code = A/G Ratio) 1.0 1 0.7-1.6 [facility] HospitalVcjauvuCKYUNYIKXK4826-67-15 02:05:00 Test Item Value Reference Range Interpretation Comments Neutrophils # (test code = Neutrophils 4.0 1.5-8.1 #) [facility] HospitalGdbawlwJCGOIHQUHM7095-09-52 02:05:00 Test Item Value Reference Range Interpretation Comments Monocytes # (test code 0.5 See_Comment [Aut omated message] The = Monocytes #) system which generated this result tra nsmitted reference range : <=0.8. The reference r sariah was not used to int erpret this result as normal/abnormal . [facility] HospitalGtswsoxFYKZVNTPNL2337-86-86 02:05:00 Test Item Value Reference Range Interpretation Comments Lymphocytes # (test code = Lymphocytes 2.3 1.0-5.5 #) [facility] HospitalSsxtqdsNKSMTWQPED3282-42-37 02:05:00 Test Item Value Reference Range Interpretation Comments Eosinophils # (test code 0.1 See_Comment [A utomated message] The = Eosinophils #) system whic h generated this result tra nsmitted reference range : <=0.5. The reference r sariah was not used to int erpret this result as normal/abnormal . [facility] HospitalCpfwvyiOWLNLDJFAX3982-87-86 02:05:00 Test Item Value Reference Range Interpretation Comments Eosinophils (test code = 2.0 See_Comment [A utomated message] The Eosinophils) system which ge nerated this result tra nsmitted reference range : <=4.0. The reference r sariah was not used to int erpret this result as normal/abnormal . [facility] HospitalEocodruZJYJBDDIZM0763-05-39 02:05:00 Test Item Value Reference Range Interpretation Comments Basophils (test code = 0.7 See_Comment [Aut omated message] The Basophils) system which ge nerated this result tra nsmitted reference range : <=1.0. The reference r sariah was not used to int erpret this result as normal/abnormal . [facility] HospitalBatqnxwDIKOWEZOGD2089-60-22 02:05:00 Test Item Value Reference Range Interpretation Comments Monocytes (test code = Monocytes) 7.7 2.0-12.0 [facility] HospitalMguysevHVCJNVWNJR9771-75-72 02:05:00 Test Item Value Reference Range Interpretation Comments Segs (test code = Segs) 57.2 45.0-75.0 [facility] HospitalHxjbnetDRPTOPHEHX0209-42-97 02:05:00 Test Item Value Reference Range Interpretation Comments Lymphocytes (test code = Lymphocytes) 32.4 20.0-40.0 [facility] HospitalNrufiltRCYZPPQGFA7130-21-44 02:05:00 Test Item Value Reference Range Interpretation Comments Monocytes (test code = Monocytes) 7.7 2.0-12.0 [facility] HospitalJjrevlcMZDRFHHQHO2726-66-70 02:05:00 Test Item Value Reference Range Interpretation Comments Hct (test code = Hct) 41.7 36.0-48.0 [facility] HospitalMehcgfyTFGPAHFHGV8658-76-91 02:05:00 Test Item Value Reference Range Interpretation Comments MCH (test code = MCH) 25.9 pg 27.0-31.0 [facility] HospitalEcqsgnmMMPUKHUTTF4228-41-29 02:05:00 Test Item Value Reference Range Interpretation Comments MCV (test code = MCV) 79.8 80.0-98.0 [facility] HospitalMwiutkdTFJWDESRLN2140-37-07 02:05:00 Test Item Value Reference Range Interpretation Comments Hct (test code = Hct) 41.7 36.0-48.0 [facility] HospitalUxknlzaKCQIYOOYHW9377-14-81 02:05:00 Test Item Value Reference Range Interpretation Comments MCHC (test code = MCHC) 32.5 32.0-36.0 [facility] HospitalTrlmqctCSBVLXIAXX9776-73-07 02:05:00 Test Item Value Reference Range Interpretation Comments Platelet (test code = Platelet) 208 133-450 [facility] HospitalPcbfuxcLXICHTMZSO9892-79-41 02:05:00 Test Item Value Reference Range Interpretation Comments RDW (test code = RDW) 15.9 11.5-14.5 [facility] HospitalUqntvziHDFWKUKHAW3387-52-99 02:05:00 Test Item Value Reference Range Interpretation Comments MPV (test code = MPV) 11.3 7.4-10.4 [facility] HospitalXbbvkqgCMMPYAAMVU2379-32-23 02:05:00 Test Item Value Reference Range Interpretation Comments RBC (test code = RBC) 5.22 4.20-5.40 [facility] HospitalUjdhmvwDYWJMZJLWJ6495-90-10 02:05:00 Test Item Value Reference Range Interpretation Comments WBC (test code = WBC) 7.0 3.7-10.4 [facility] HospitalQtvgqcpYNFZLTINIY1947-08-16 02:05:00 Test Item Value Reference Range Interpretation Comments Hgb (test code = Hgb) 13.5 12.0-16.0 [facility] HospitalNabfyegPOIFGBESLW7292-46-60 02:05:00 Test Item Value Reference Range Interpretation Comments MCH (test code = MCH) 25.9 pg 27.0-31.0 [facility]em[facility]msRAVSFDWFHO7374-38-27 02:05:00 Test Item Value Reference Range Interpretation Comments HIV. (test code = Negative *NA*(12/22/17 HIV.) 9:05 PM) [facility]Vcr[facility]kcSUYMGIXOPK8369-08-67 02:05:00 Test Item Value Reference Range Interpretation Comments Hep B Core IgM (test Negative *NA*(12/22/17 code = Hep B Core 9:05 PM) IgM) [facility] CenterKvurgmfNSIPKLIKOI9504-43-40 02:05:00 Test Item Value Reference Range Interpretation Comments Hep Bs Ag (test code Negative *NA*(12/22/17 = Hep Bs Ag) 9:05 PM) [facility]ShlbsfpTUQNTWWDEY4073-46-60 02:05:00 Test Item Value Reference Range Interpretation Comments Hep C Ab (test code = Negative *NA*(12/22/17 Hep C Ab) 9:05 PM) [facility] CenterIhfclfjNLFGIGRGLU6387-29-48 02:05:00 Test Item Value Reference Range Interpretation Comments Hep A IgM (test code Negative *NA*(12/22/17 = Hep A IgM) 9:05 PM) [facility] HospitalAuiidwxYGZPKBIOFF2659-95-66 02:05:00 Test Item Value Reference Range Interpretation Comments MCV (test code = MCV) 79.8 80.0-98.0 [facility] HospitalHkgbdcyQBMVTNQVTO9447-03-74 02:05:00 Test Item Value Reference Range Interpretation Comments MCHC (test code = MCHC) 32.5 32.0-36.0 [facility] HospitalSzgjhgjXLERQTTVRN3697-65-76 02:05:00 Test Item Value Reference Range Interpretation Comments Platelet (test code = Platelet) 208 133-450 [facility] HospitalJczddclSDRVWZXZFP6335-85-82 02:05:00 Test Item Value Reference Range Interpretation Comments RDW (test code = RDW) 15.9 11.5-14.5 [facility] HospitalXsyuejbRQADAXHHUN3014-96-23 02:05:00 Test Item Value Reference Range Interpretation Comments MPV (test code = MPV) 11.3 7.4-10.4 [facility] HospitalWvgggonORIAJODMJE9406-70-85 02:05:00 Test Item Value Reference Range Interpretation Comments RBC (test code = RBC) 5.22 4.20-5.40 [facility] HospitalRdnzfflKOCNDGBTPQ3919-16-96 02:05:00 Test Item Value Reference Range Interpretation Comments WBC (test code = WBC) 7.0 3.7-10.4 [facility] HospitalSxthuhcVKDHRLWBIN4708-27-15 02:05:00 Test Item Value Reference Range Interpretation Comments Hgb (test code = Hgb) 13.5 12.0-16.0 [facility]XqttlsjCZUVWUHGGJ6210-53-95 02:05:00 Test Item Value Reference Range Interpretation Comments HIV. (test code = Negative *NA*(12/22/17 HIV.) 9:05 PM) [facility] CenterRetsansDSFJYZGLSP3805-45-16 02:05:00 Test Item Value Reference Range Interpretation Comments Hep B Core IgM (test Negative *NA*(12/22/17 code = Hep B Core 9:05 PM) IgM) [facility] CenterHmindfsGNUFPNWTOJ7617-24-90 02:05:00 Test Item Value Reference Range Interpretation Comments Hep Bs Ag (test code Negative *NA*(12/22/17 = Hep Bs Ag) 9:05 PM) [facility] CenterMtatfenVOFLRRQBYS9139-01-91 02:05:00 Test Item Value Reference Range Interpretation Comments Hep C Ab (test code = Negative *NA*(12/22/17 Hep C Ab) 9:05 PM) [facility] CenterIjknzgqWYGIADBWZJ1422-35-92 02:05:00 Test Item Value Reference Range Interpretation Comments Hep A IgM (test code Negative *NA*(12/22/17 = Hep A IgM) 9:05 PM) [facility]2018-10-14 02:05:00 Test Item Value Reference Range Interpretation Comments Glucose Lvl (test code = Glucose Lvl) 77 70-99 [facility] [place]2018-10-14 02:05:00 Test Item Value Reference Range Interpretation Comments Creatinine Lvl (test code = Creatinine 0.98 0.50-1.40 Lvl) [facility]2018-10-14 02:05:00 Test Item Value Reference Range Interpretation Comments Sodium Lvl (test code = Sodium Lvl) 139 135-145 [facility] [place]2018-10-14 02:05:00 Test Item Value Reference Range Interpretation Comments BUN (test code = BUN) 8 7-22 [facility] [place]2018-10-14 02:05:00 Test Item Value Reference Range Interpretation Comments Total Protein (test code = Total 8.4 6.4-8.4 Protein) [facility] [place]2018-10-14 02:05:00 Test Item Value Reference Range Interpretation Comments Albumin Lvl (test code = Albumin Lvl) 4.3 3.5-5.0 [facility]2018-10-14 02:05:00 Test Item Value Reference Range Interpretation Comments Potassium Lvl (test code = Potassium 4.2 3.5-5.1 Lvl) [facility]2018-10-14 02:05:00 Test Item Value Reference Range Interpretation Comments Chloride Lvl (test code = Chloride Lvl) 110 95-109 [facility] [place]2018-10-14 02:05:00 Test Item Value Reference Range Interpretation Comments CO2 (test code = CO2) 23 24-32 [facility] [place]2018-10-14 02:05:00 Test Item Value Reference Range Interpretation Comments Calcium Lvl (test code = Calcium Lvl) 9.1 8.5-10.5 [facility] [place]2018-10-14 02:05:00 Test Item Value Reference Range Interpretation Comments Bili Total (test code = Bili Total) 0.6 0.2-1.3 [facility] [place]2018-10-14 02:05:00 Test Item Value Reference Range Interpretation Comments ALT (test code = ALT) 21 See_Comment [Auto mated message] The system which ge nerated this result transmit bob reference range : <=65. The reference range was not used to interpr et this result as dominique l/abnormal. [facility]2018-10-14 02:05:00 Test Item Value Reference Range Interpretation Comments AST (test code = AST) 23 See_Comment [Auto mated message] The system which ge nerated this result transmit bob reference range : <=37. The reference range was not used to interpr et this result as dominique l/abnormal. [facility]2018-10-14 02:05:00 Test Item Value Reference Range Interpretation Comments Alk Phos (test code = Alk Phos) 74 39-136 [facility] [place]2018-10-14 02:05:00 Test Item Value Reference Range Interpretation Comments eGFR (test code = eGFR) 96 [facility] [place]2018-10-14 02:05:00 Test Item Value Reference Range Interpretation Comments AGAP (test code = AGAP) 10.2 10.0-20.0 [facility] [place]2018-10-14 02:05:00 Test Item Value Reference Range Interpretation Comments B/C Ratio (test code = B/C Ratio) 8 1 6-25 [place] [id number] 02:05:00 Test Item Value Reference Range Interpretation Comments Globulin (test code = Globulin) 4.1 2.7-4.2 [facility]2018-10-14 02:05:00 Test Item Value Reference Range Interpretation Comments A/G Ratio (test code = A/G Ratio) 1.0 1 0.7-1.6 [place] [id number] 02:05:00 Test Item Value Reference Range Interpretation Comments Neutrophils # (test code = Neutrophils 4.0 1.5-8.1 #) [facility] HospitalIfvycwpIZFGMZECVC8788-18-81 02:05:00 Test Item Value Reference Range Interpretation Comments Monocytes # (test code 0.5 See_Comment [Aut omated message] The = Monocytes #) system which generated this result tra nsmitted reference range : <=0.8. The reference r sariah was not used to int erpret this result as normal/abnormal . [facility] HospitalCtmrtivETNCQHJPMR6573-79-19 02:05:00 Test Item Value Reference Range Interpretation Comments Lymphocytes # (test code = Lymphocytes 2.3 1.0-5.5 #) [facility] HospitalQqnltgpZVOMORJYDF3335-95-88 02:05:00 Test Item Value Reference Range Interpretation Comments Eosinophils # (test code 0.1 See_Comment [A utomated message] The = Eosinophils #) system whic h generated this result tra nsmitted reference range : <=0.5. The reference r sariah was not used to int erpret this result as normal/abnormal . [facility] HospitalEimfnmhDLYANCEDDB9702-73-27 02:05:00 Test Item Value Reference Range Interpretation Comments Eosinophils (test code = 2.0 See_Comment [A utomated message] The Eosinophils) system which ge nerated this result tra nsmitted reference range : <=4.0. The reference r sariah was not used to int erpret this result as normal/abnormal . [facility] HospitalOmddmykXCBGXTTBHB5791-98-46 02:05:00 Test Item Value Reference Range Interpretation Comments Basophils (test code = 0.7 See_Comment [Aut omated message] The Basophils) system which ge nerated this result tra nsmitted reference range : <=1.0. The reference r sariah was not used to int erpret this result as normal/abnormal . [facility] HospitalIaczfikYGVQRIRKCZ6014-93-16 02:05:00 Test Item Value Reference Range Interpretation Comments Segs (test code = Segs) 57.2 45.0-75.0 [facility] HospitalDeexsdmWOBMRUJUFD6568-03-10 02:05:00 Test Item Value Reference Range Interpretation Comments Lymphocytes (test code = Lymphocytes) 32.4 20.0-40.0 [facility] HospitalPjarzpgOVFFTMGFSC9028-37-71 02:05:00 Test Item Value Reference Range Interpretation Comments Monocytes (test code = Monocytes) 7.7 2.0-12.0 [facility] HospitalHaeopvpZGQEUIAQXP6021-84-40 02:05:00 Test Item Value Reference Range Interpretation Comments Hct (test code = Hct) 41.7 36.0-48.0 [facility] HospitalWynufivCJUSQPSCSX5624-00-43 02:05:00 Test Item Value Reference Range Interpretation Comments MCH (test code = MCH) 25.9 pg 27.0-31.0 [facility] HospitalNmpswptCKJQABYLHJ8132-03-33 02:05:00 Test Item Value Reference Range Interpretation Comments MCV (test code = MCV) 79.8 80.0-98.0 [facility]COM[facility] [id number] 00:00:00 Test Item Value Reference Range Interpretation Comments GLUCOSE (test code = 2217) 85 MG/DL BUN (test code = 2208) 7 MG/DL CREATININE (test code = 2214) 0.74 MG/DL eGFR AMER. (test code 135 ML/MIN/1.73 = 04131) eGFR NON- AMER. (test 117 ML/MIN/1.73 code = 79703) CALC BUN/CREAT (test code = 9 RATIO 2235) SODIUM (test code = 2231) 140 MEQ/L POTASSIUM (test code = 2228) 4.8 MEQ/L CHLORIDE (test code = 2215) 103 MEQ/L CARBON DIOXIDE (test code = 24 MEQ/L 2205) CALCIUM (test code = 2209) 9.6 MG/DL PROTEIN, TOTAL (test code = 7.9 G/DL 2229) ALBUMIN (test code = 2201) 4.6 G/DL CALC GLOBULIN (test code = 3.3 G/DL 2240) CALC A/G RATIO (test code = 1.4 RATIO 2234) BILIRUBIN, TOTAL (test code = 0.2 MG/DL 220) ALKALINE PHOSPHATASE (test 83 U/L code = 2204) AST (test code = 2218) 20 U/L ALT (test code = 2219) 11 U/L COMPREHENSIVE METABOLIC [id number] 00:00:00 Test Item Value Reference Range Interpretation Comments GLUCOSE (test code = 2217) 85 MG/DL BUN (test code = 2208) 7 MG/DL CREATININE (test code = 2214) 0.74 MG/DL eGFR AMER. (test code 135 ML/MIN/1.73 = 82821) eGFR NON- AMER. (test 117 ML/MIN/1.73 code = 51862) CALC BUN/CREAT (test code = 9 RATIO 2235) SODIUM (test code = 2231) 140 MEQ/L POTASSIUM (test code = 2228) 4.8 MEQ/L CHLORIDE (test code = 2215) 103 MEQ/L CARBON DIOXIDE (test code = 24 MEQ/L 2205) CALCIUM (test code = 2209) 9.6 MG/DL PROTEIN, TOTAL (test code = 7.9 G/DL 2228) ALBUMIN (test code = 2201) 4.6 G/DL CALC GLOBULIN (test code = 3.3 G/DL 2240) CALC A/G RATIO (test code = 1.4 RATIO 2234) BILIRUBIN, TOTAL (test code = 0.2 MG/DL 2206) ALKALINE PHOSPHATASE (test 83 U/L code = 2204) AST (test code = 2218) 20 U/L ALT (test code = 2219) 11 U/L LIPID [id number] 00:00:00 Test Item Value Reference Range Interpretation Comments CHOLESTEROL (test code = 2210) 121 MG/DL TRIGLYCERIDES (test code = 2232) 41 MG/DL HDL CHOLESTEROL (test code = 2220) 40 MG/DL CALC LDL CHOL (test code = 2237) 73 MG/DL RISK RATIO LDL/HDL (test code = 1.82 RATIO 2238) LIPID [id number] 00:00:00 Test Item Value Reference Range Interpretation Comments CHOLESTEROL (test code = 2210) 121 MG/DL TRIGLYCERIDES (test code = 2232) 41 MG/DL HDL CHOLESTEROL (test code = 2220) 40 MG/DL CALC LDL CHOL (test code = 2237) 73 MG/DL RISK RATIO LDL/HDL (test code = 1.82 RATIO 2238) CBC W/AUTO [id number] 00:00:00 Test Item Value Reference Range Interpretation Comments WBC (test code = 1001) 7.2 K/UL RBC (test code = 1002) 4.86 M/UL HEMOGLOBIN (test code = 1003) 12.0 G/DL HEMATOCRIT (test code = 1004) 37.7 % MCV (test code = 1005) 77.6 fL MCH (test code = 1006) 24.7 PG MCHC (test code = 1007) 31.8 G/DL RDW (test code = 1038) 13.9 % NEUTROPHILS (test code = 1008) 48.7 % LYMPHOCYTES (test code = 1010) 34.5 % MONOCYTES (test code = 1011) 7.7 % EOSINOPHILS (test code = 1012) 8.3 % BASOPHILS (test code = 1013) 0.8 % PLATELET COUNT (test code = 1015) 313 K/UL CBC W/AUTO [id number] 00:00:00 Test Item Value Reference Range Interpretation Comments WBC (test code = 1001) 7.2 K/UL RBC (test code = 1002) 4.86 M/UL HEMOGLOBIN (test code = 1003) 12.0 G/DL HEMATOCRIT (test code = 1004) 37.7 % MCV (test code = 1005) 77.6 fL MCH (test code = 1006) 24.7 PG MCHC (test code = 1007) 31.8 G/DL RDW (test code = 1038) 13.9 % NEUTROPHILS (test code = 1008) 48.7 % LYMPHOCYTES (test code = 1010) 34.5 % MONOCYTES (test code = 1011) 7.7 % EOSINOPHILS (test code = 1012) 8.3 % BASOPHILS (test code = 1013) 0.8 % PLATELET COUNT (test code = 1015) 313 K/UL CBC W/AUTO [id number] 00:00:00 Test Item Value Reference Range Interpretation Comments WBC (test code = 1001) 7.2 K/UL RBC (test code = 1002) 4.86 M/UL HEMOGLOBIN (test code = 1003) 12.0 G/DL HEMATOCRIT (test code = 1004) 37.7 % MCV (test code = 1005) 77.6 fL MCH (test code = 1006) 24.7 PG MCHC (test code = 1007) 31.8 G/DL RDW (test code = 1038) 13.9 % NEUTROPHILS (test code = 1008) 48.7 % LYMPHOCYTES (test code = 1010) 34.5 % MONOCYTES (test code = 1011) 7.7 % EOSINOPHILS (test code = 1012) 8.3 % BASOPHILS (test code = 1013) 0.8 % PLATELET COUNT (test code = 1015) 313 K/UL HEMOGLOBIN [id number] 00:00:00 Test Item Value Reference Range Interpretation Comments HEMOGLOBIN A1c (test code = 33475) 5.6 % HEMOGLOBIN [id number] 00:00:00 Test Item Value Reference Range Interpretation Comments HEMOGLOBIN A1c (test code = 98201) 5.6 % HEMOGLOBIN [id number] 00:00:00 Test Item Value Reference Range Interpretation Comments HEMOGLOBIN A1c (test code = 50706) 5.6 % [id number] 00:00:00 Test Item Value Reference Range Interpretation Comments TSH, THIRD GENERATION (test code 1.540 UIU/ML = 2821) [id number] 00:00:00 Test Item Value Reference Range Interpretation Comments TSH, THIRD GENERATION (test code 1.540 UIU/ML = 2821) [id number] 00:00:00 Test Item Value Reference Range Interpretation Comments TSH, THIRD GENERATION (test code 1.540 UIU/ML = 2821) HIV AB/AG COMBO RFLX [id number] 00:00:00 Test Item Value Reference Range Interpretation Comments HIV AB/AG COMBO RFLX CONF (test NON-REACTIVE code = 3514) HIV AB/AG COMBO RFLX [id number] 00:00:00 Test Item Value Reference Range Interpretation Comments HIV AB/AG COMBO RFLX CONF (test NON-REACTIVE code = 3514) [id number] 00:00:00 Test Item Value Reference Range Interpretation Comments RPR RESULT (test code = NON-REACTIVE 3501) RPR TITER (test code = 3500) NOT INDIC. TITER [id number] 00:00:00 Test Item Value Reference Range Interpretation Comments RPR RESULT (test code = NON-REACTIVE 3501) RPR TITER (test code = 3500) NOT INDIC. TITER [id number] 00:00:00 Test Item Value Reference Range Interpretation Comments RPR RESULT (test code = NON-REACTIVE 3501) RPR TITER (test code = 3500) NOT INDIC. TITER GC, AMPLIFIED, [id number] 00:00:00 Test Item Value Reference Range Interpretation Comments GONORRHEA, AMPLIFIED (test code = NEGATIVE 77227) GC, AMPLIFIED, [id number] 00:00:00 Test Item Value Reference Range Interpretation Comments GONORRHEA, AMPLIFIED (test code = NEGATIVE 23231) CHLAMYDIA, AMPLIFIED, [id number] 00:00:00 Test Item Value Reference Range Interpretation Comments CHLAMYDIA, AMPLIFIED (test code = NEGATIVE 96803) CHLAMYDIA, AMPLIFIED, [id number] 00:00:00 Test Item Value Reference Range Interpretation Comments CHLAMYDIA, AMPLIFIED (test code = NEGATIVE 42353) ACUTE HEPATITIS [id number] 00:00:00 Test Item Value Reference Range Interpretation Comments HEPATITIS A IgM (test code = NON-REACTIVE 83768) HEPATITIS B CORE IgM (test code NON-REACTIVE = 4644) HEPATITIS B SURF AG (test code = NON-REACTIVE 2739) HEPATITIS C ANTIBODY (test code NON-REACTIVE = 4675) INTERPRETATION HEPATITIS A: (NOTE) (test code = 2552) INTERPRETATION HEPATITIS B: (NOTE) (test code = 06185) INTERPRETATION HEPATITIS C: (NOTE) (test code = 50133) ACUTE HEPATITIS [id number] 00:00:00 Test Item Value Reference Range Interpretation Comments HEPATITIS A IgM (test code = NON-REACTIVE 10713) HEPATITIS B CORE IgM (test code NON-REACTIVE = 4644) HEPATITIS B SURF AG (test code = NON-REACTIVE 2739) HEPATITIS C ANTIBODY (test code NON-REACTIVE = 4675) INTERPRETATION HEPATITIS A: (NOTE) (test code = 2552) INTERPRETATION HEPATITIS B: (NOTE) (test code = 10908) INTERPRETATION HEPATITIS C: (NOTE) (test code = 86083)
[2022-07-12] MEDS ORDERED: LIDOCAINE VISCOUS 2% SOLN 15 ML UDC ONE (17:13)
[2022-07-12] MEDS ORDERED: MAGNES/ALUMIN/SIMET 30ML UCUP ONE (17:13)
--- NOTE | 2022-07-12 18:26 | ER ---
Nurse's Notes [facility] Name: Sanjuana Zapata Age: 26 yrs Sex: Female : 1995 Arrival Date: 07/12/2022 Time: 16:21 Bed IW1 Private MD: Diagnosis: Acute pharyngitis, unspecified Presentation: 07/12 16:54 Chief complaint: Patient states: sore throat that began 2-3 months ago. aa5 16:54 Acuity: KIM 3 aa5 16:54 Coronavirus screen: sore throat. Ebola Screen: Patient denies travel to an [facility] Ebola-affected area in the 21 days before illness onset. Initial Sepsis Screen: Does the patient meet any 2 criteria? No. Patient's initial sepsis screen is negative. Does the patient have a suspected source of infection? No. Patient's initial sepsis screen is negative. Risk Assessment: Do you want to hurt yourself or someone else? Patient reports no desire to harm self or others. 16:54 Method Of Arrival: Ambulatory aa 16:54 Onset of symptoms was 2022. aa5 Historical: - Allergies: 16:54 NKA; aa5 - PMHx: 16:54 Depression; aa5 - PSHx: 16:54 section; aa5 - Immunization history:: Adult Immunizations unknown. - Social history:: Smoking status: Patient denies any tobacco usage or history of. Screenin:[address] [facility] ED Fall Risk Assessment (Adult) History of falling in the last 3 months, ss including since admission No falls in past 3 months (0 pts). Abuse screen: Denies threats or abuse. Denies injuries from another. Nutritional screening: No deficits noted. Tuberculosis screening: Never had TB. Assessment: 18:35 Reassessment: Patient appears in no apparent distress at this time. Patient and/or ss family updated on plan of care and expected duration. Pain level reassessed. Patient is alert, oriented x 3, equal unlabored respirations, skin warm/dry/pink. Vital Signs: 16:54 BP 130 / 84; Pulse 92; Resp 18 S; Temp 98(TE); Pulse Ox 98% on R/A; Weight 86.18 kg aa5 (R); Height 5 ft. 3 in. (R); 16:54 Body Mass Index 33.66 (86.18 kg, 160.02 cm) 5 ED Course: 16:26 Patient arrived in ED. am2 16:30 Geovanni Simon PA is PHCP. cp 16:30 Geovanni Bernal MD is Attending Physician. cp 16:54 Arm band placed on. aa5 16:55 Triage completed. aa5 17:05 Initial lab(s) drawn, by tx, sent to lab. COVID swab sent to lab. Strep swab sent to [facility] lab. 18:24 Gayle Sullivan MD is Referral Physician. cp 18:35 Patient has correct armband on for positive identification. ss 18:35 No provider procedures requiring assistance completed. Patient did not have IV access ss during this emergency room visit. Administered Medications: 17:08 Drug: GI Cocktail without - (Maalox PO Suspension 30 ml, Lidocaine Mucous aa5 Membrane Liquid 2 % 15 ml) Route: PO; Medication: 18:35 VIS not applicable for this client. ss Outcome: 18:25 Discharge ordered by MD. cp 18:35 Discharged to home ambulatory. ss 18:35 Condition: good 18:35 Discharge instructions given to patient, Instructed on discharge instructions, follow up and referral plans. medication usage, Demonstrated understanding of instructions, follow-up care, medications, Prescriptions given X 2. 18:36 Patient left the ED. ss Signatures: Alena Nelson, RN RN [facility] Ketty Willis RN RN ss Geovanni Simon PA PA cp Georgia Clements am2
--- NOTE | 2022-07-12 18:26 | EDPHYS ---
Physician Documentation [facility] Name: Sanjuana Zapata Age: 26 yrs Sex: Female : 1995 Arrival Date: 07/12/2022 Time: 16:21 Bed IW1 Private MD: ED Physician Geovanni Bernal HPI: 07/12 17:00 This 26 yrs old Black Female presents to ER via Ambulatory with complaints of Sore cp Throat. 17:00 The patient presents with sore throat. cp 17:00 Onset: The symptoms/episode began/occurred 3 month(s) ago, and became worse today. cp 17:00 Severity of symptoms: in the emergency department the symptoms are unchanged, despite cp home interventions. Associated signs and symptoms: Pertinent negatives cough, diarrhea, dysphagia, fever, flu-like symptoms, vomiting. Historical: - Allergies: 16:54 NKA; aa5 - PMHx: 16:54 Depression; aa5 - PSHx: 16:54 section; aa5 - Immunization history:: Adult Immunizations unknown. - Social history:: Smoking status: Patient denies any tobacco usage or history of. ROS: 17:05 Constitutional: Negative for body aches, chills, fever, poor PO intake. cp 17:05 Eyes: Negative for injury, pain, redness, and discharge. cp 17:05 ENT: Positive for sore throat, Negative for drainage from ear(s), ear pain, difficulty swallowing, difficulty handling secretions. 17:05 Cardiovascular: Negative for chest pain. 17:05 Respiratory: Negative for cough, shortness of breath, wheezing. 17:05 Abdomen/GI: Negative for abdominal pain, nausea, vomiting, and diarrhea. 17:05 Skin: Negative for cellulitis, rash. 17:05 All other systems are negative. Exam: 17:10 Constitutional: The patient appears in no acute distress, alert, awake, non-toxic, well cp developed, well nourished. 17:10 Head/Face: Normocephalic, atraumatic. cp 17:10 Eyes: Periorbital structures: appear normal, Conjunctiva: normal, no exudate, no injection, Sclera: no appreciated abnormality, Lids and lashes: appear normal, bilaterally. 17:10 ENT: External ear(s): are unremarkable, Nose: is normal, Mouth: Lips: moist, Oral mucosa: pink and intact, moist, Posterior pharynx: Airway: no evidence of obstruction, patent, Tonsils: no enlargement, no exudate, erythema, is not appreciated, exudate, is not appreciated. 17:10 Neck: ROM/movement: is normal, is supple, without pain, no range of motions limitations, no meningismus, Lymph nodes: no appreciated lymphadenopathy. 17:10 Chest/axilla: Inspection: normal. 17:10 Cardiovascular: Rate: normal, Rhythm: regular. 17:10 Respiratory: the patient does not display signs of respiratory distress, Respirations: normal, no use of accessory muscles, no retractions, labored breathing, is not present, Breath sounds: are clear throughout, no decreased breath sounds, no stridor, no wheezing. 17:10 Abdomen/GI: Exam negative for discomfort, distension, guarding, Inspection: abdomen appears normal. Vital Signs: 16:54 BP 130 / 84; Pulse 92; Resp 18 S; Temp 98(TE); Pulse Ox 98% on R/A; Weight 86.18 kg aa5 (R); Height 5 ft. 3 in. (R); 16:54 Body Mass Index 33.66 (86.18 kg, 160.02 cm) aa5 MDM: 16:56 Patient medically screened. cp 17:00 Differential diagnosis: epiglottitis, blair-oakley virus, group A strep tonsillitis, cp laryngitis, carlos's angina, mononucleosis, peritonsillar abscess pharyngitis, retropharyngeal abcess. 18:25 Data reviewed: vital signs, nurses notes, lab test result(s). cp 18:25 Counseling: I had a detailed discussion with the patient and/or guardian regarding: the cp historical points, exam findings, and any diagnostic results supporting the discharge/admit diagnosis, to return to the emergency department if symptoms worsen or persist or if there are any questions or concerns that arise at home. 07/12 16:44 Order name: Strep 07/12 18:24 Interpretation: Reviewed. 07/12 16:44 Order name: [place] Screen Profile; Complete Time: 18:24 07/12 18:24 Interpretation: Reviewed. 07/12 16:45 Order name: COVID-19 SARS RT PCR; Complete Time: 18:24 07/12 18:24 Interpretation: Reviewed. cp 07/12 17:25 Order name: Throat Culture EDMS Administered Medications: 17:08 Drug: GI Cocktail without - (Maalox PO Suspension 30 ml, Lidocaine Mucous aa5 Membrane Liquid 2 % 15 ml) Route: PO; Disposition Summary: 07/12/22 18:25 Discharge Ordered Location: Home cp Problem: an ongoing problem cp Symptoms: have improved cp Condition: Stable cp Diagnosis - Acute pharyngitis, unspecified cp Followup: cp - With: Gayle Sullivan MD - When: 2 - 3 days - Reason: Recheck today's complaints Discharge Instructions: - Discharge Summary Sheet cp - Pharyngitis cp - Sore Throat cp Forms: - Medication Reconciliation Form cp - Thank You Letter cp - Antibiotic Education cp - Prescription Opioid Use cp Prescriptions: - Lidocaine Viscous - take 5 milliliter by ORAL route every 4-6 hours As needed; 1 unit; Refills: 0, cp Product Selection Permitted - Zithromax Z-José 250 mg Oral Tablet - take 1 tablet by ORAL route as directed for 5 days Day 1 - take two (2) tablets cp one time. Day 2, 3, 4 , 5 take one (1) tablet once daily.; 6 tablet; Refills: 0, Product Selection Permitted Signatures: Dispatcher [employer] EDMS Alena Nelson RN RN aa5 Geovanni Simon PA PA cp Corrections: (The following items were deleted from the chart) 07/13 05:06 05:04 Constitutional: Negative for body aches, chills, fever, poor PO intake, cp cp
[2022-07-12 18:47] VITALS: BP 130/84; TEMP 98; O2SAT 98
== END 2022-07-12 18:36 | disposition home or self-care (01) ==
LOC: ER 16:21
DX: J02.9 Acute pharyngitis, unspecified (principal); Z20.822 Contact with and (suspected) exposure to COVID-19
CPT/HCPCS: 87070; 36415; 86308; 87081; U0003; 99283